=== PATIENT | female | born 1965 | race Caucasian/White ===

== ENCOUNTER 2017-03-27 15:52 | Inpatient (IN) ==
[2017-03-27] MEDS ORDERED: predniSONE 20 MG TABLET PO ONE (15:57)
--- NOTE | 2017-03-27 16:03 | Emergency Department Note ---
Disposition Clinical Impression: Acute exacerbation of chronic obstructive airways disease Disposition: Admitted As Inpatient Condition: Fair Referrals: Benjamin Thayer MD [Primary Care Provider] - Forms: ED Satisfaction Letter Time of Disposition: 16:58 SOB HPI - General Chief Complaint: ED Shortness of Breath/Dyspnea Stated Complaint: COPD Time Seen by Provider: 03/27/17 15:56 Source: patient Mode of arrival: ambulatory Limitations: no limitations Nursing Notes Reviewed: Yes Vital Signs Reviewed: Yes - History of Present Illness 51-year-old female has a history COPD comes in with increasing shortness of breath for the last 3 days. Upon squad arrival she was in the mid 80s pulse ox. She's gotten a treatment with some improvement. Chart notes that she is allergic to prednisone she says she is not allergic she just can't take high doses it causes her to get agitated she is okay with 20 mg. Pt Subjective Complaint: shortness of breath, cough Onset (ago): day(s) Severity: moderate Consistency/Duration: constant Improves with: bronchodilators Worsens with: exertion Known history of: COPD Associated symptoms: Denies: chest pain, pain with inspiration Treatment prior to arrival: oxygen, bronchodilator Cough Description: Involuntary Cough Frequency: Intermittent - Related Data Home Medications Medication Instructions Recorded Confirmed Citalopram Hydrobromide [Celexa] 40 mg PO DAILY 02/14/16 03/27/17 traZODone [TraZODone] 50 mg PO HS #0 02/14/16 03/27/17 ALPRAZolam [Xanax 1 MG Tablet] 1 mg PO QID 03/27/17 03/27/17 Albuterol Sulfate [Proair Hfa] 2 puff IH Q4H PRN 03/27/17 03/27/17 Budesonide/Formoterol 80/4.5 2 puff IH BID 03/27/17 03/27/17 [Symbicort 80/4.5] Metformin HCl [Metformin HCl ER] 500 mg PO QPM 03/27/17 03/27/17 Mirtazapine [Remeron] 15 mg PO HS 03/27/17 03/27/17 Allergies Allergy/AdvReac Type Severity Reaction Status Date / Time prednisone AdvReac See Verified 02/13/16 20:11 Comments Constitutional: Denies: fever, chills, weakness, weight change Eyes: Denies: eye pain, eye discharge, vision change ENT ED: Denies: ear pain, throat pain, dental pain, hearing loss, epistaxis, congestion, dysphagia Cardiovascular: Denies: chest pain, palpitations, dyspnea on exertion, edema, syncope Respiratory: Reports: cough, dyspnea, wheezes. Denies: hemoptysis, stridor Gastrointestinal: Denies: abdominal pain, nausea, vomiting, diarrhea, constipation, hematemesis, melena, hematochezia Genitourinary: Denies: dysuria, frequency, hematuria, discharge Musculoskeletal: Denies: back pain, neck pain, arthralgia, myalgia Integumentary: Denies: rash, abrasion, lesions Neurological: Denies: headache, weakness, numbness, paresthesias, confusion, abnormal gait, vertigo Psychiatric: Denies: anxiety, depression, suicidal thoughts, homicidal thoughts , auditory hallucinations, visual hallucinations Endocrine: Denies: fatigue Hematological/Lymphatic: Denies: easy bleeding, easy bruising Allergic/Immunologic: Denies: facial swelling, urticaria Past Medical History - Past Medical History Medical history: Reports: COPD, other (RLS) Surgical history: Reports: appendectomy, Psychiatric history: Reports: anxiety, depression - Social History Smoking Status: Former smoker Smokeless Tobacco Status: No Alcohol use: Reports: none Drug use: Reports: none Physical Exam - General Limitations: no limitations General appearance: alert, in no apparent distress - Head Head exam: atraumatic, normocephalic, normal inspection - Eye Eye exam: Present: normal appearance, PERRL, EOMI - ENT ENT exam: normal exam, normal oropharynx, mucous membranes moist - Neck Neck exam: Present: normal inspection, full ROM, trachea midline - Chest Chest inspection: Present: normal inspection, symmetric chest wall rise - Respiratory Respiratory exam: Present: wheezes, accessory muscle use, prolonged expiratory phase - Cardiovascular Cardiovascular exam: Present: regular rate, normal rhythm, normal heart sounds - Abdominal Exam Abdominal exam: Present: soft, Non-Tender. Absent: tenderness, distention, guarding, rebound, rigidity - Extremities Exam Extremities exam: Present: normal inspection, full ROM. Absent: tenderness, pedal edema - Expanded Lower Extremity Exam Neurovascular/Tendon exam: Absent: motor deficit, sensory deficit, tendon deficit Gait: observed and normal - Back Exam Back exam: Present: normal inspection, full ROM. Absent: tenderness - Neurological Exam Neurological exam: Present: alert, oriented X3 - Psychiatric Psychiatric exam: Present: normal affect, normal mood - Skin Skin exam: Present: warm, dry, intact, normal color Course - Reevaluation(s) Reevaluation #1: 51-year-old female with a history COPD comes in with increasing shortness breath for the last several days. The patient uses oxygen at night normally her pulse ox is in the mid 90s during the day but currently we take her off oxygen she drops to about 89 any exertion she gets short of breath. She is improved from arrival but continues to have wheezing look sexual required admission. Time: 16:58 - Consultations Consultation #1: Discussed with Mey Arriaga HAND GLUER AND SLICER, admit. Time: 17:08 Vital Signs Temperature 98.0 F 03/27/17 15:54 Pulse Rate 84 03/27/17 15:54 Respiratory Rate 26 03/27/17 15:54 Blood Pressure 130/111 03/27/17 15:54 O2 Sat by Pulse Oximetry 96 03/27/17 15:54 Temperature 98.0 F 03/27/17 15:54 Pulse Rate 84 03/27/17 15:54 Respiratory Rate 26 03/27/17 15:54 Blood Pressure 130/111 03/27/17 15:54 O2 Sat by Pulse Oximetry 96 03/27/17 15:54 Oxygen Delivery Oxygen Delivery Room Air Shortness of Breath/Dyspnea - Lab Data Lab results reviewed: Yes I reviewed the patient's lab results. Result diagrams: 03/27/17 16:21 03/27/17 16:21 Lab Results 03/27/17 03/27/17 03/27/17 Range/Units 16:21 16:21 16:21 WBC 5.6 (4.3-11.1) K/mcL RBC 4.78 (3.82-4.97) M/mcL Hgb 14.3 (11.5-15.4) g/dL Hct 42.4 (35.3-44.9) % MCV 88.7 (83.0-100.0) fL MCH 29.9 (28.0-33.3) pg MCHC 33.7 (31.6-35.5) g/dL RDW 12.5 (11.5-14.5) % Plt Count 210 (140-400) K/mcL MPV 10.1 (9.4-12.4) fL Immature Gran % 0.2 (0-4) % Seg Neutrophils % 54.9 % Lymphocytes % 32.9 % Monocytes % 9.3 % Eosinophils % 1.4 % Basophils % 1.3 % Neutrophils # 3.1 (1.6-8.9) K/mcL Lymphocytes # 1.8 (0.6-4.6) K/mcL Monocytes # 0.5 (0.0-1.3) K/mcL Eosinophils # 0.1 (0.0-0.6) K/mcL Basophils # 0.1 (0.0-0.2) K/mcL Immature Plt Fraction 5.4 (1.1-6.1) % Sodium 137 (136-145) mEq/L Potassium 3.6 (3.5-4.5) mEq/L Chloride 103 (98-109) mEq/L Carbon Dioxide 28 (19-29) mEq/L BUN 10 (7-20) mg/dL Creatinine 0.63 (0.57-1.11) mg/dL Est GFR ( Amer) > 60 (> 60) Est GFR (Non-Af Amer) > 60 (> 60) BUN/Creatinine Ratio 16 (6-26) Glucose 117 H (70-99) mg/dL Calculated Osmolality 284 (280-300) Lactic Acid 1.0 (0.5-2.2) mmol/L Calcium 8.9 (8.6-10.8) mg/dL Troponin I (0-0.03) ng/mL B-Natriuretic Peptide (0-100) pg/mL 03/27/17 03/27/17 Range/Units 16:21 16:21 WBC (4.3-11.1) K/mcL RBC (3.82-4.97) M/mcL Hgb (11.5-15.4) g/dL Hct (35.3-44.9) % MCV (83.0-100.0) fL MCH (28.0-33.3) pg MCHC (31.6-35.5) g/dL RDW (11.5-14.5) % Plt Count (140-400) K/mcL MPV (9.4-12.4) fL Immature Gran % (0-4) % Seg Neutrophils % % Lymphocytes % % Monocytes % % Eosinophils % % Basophils % % Neutrophils # (1.6-8.9) K/mcL Lymphocytes # (0.6-4.6) K/mcL Monocytes # (0.0-1.3) K/mcL Eosinophils # (0.0-0.6) K/mcL Basophils # (0.0-0.2) K/mcL Immature Plt Fraction (1.1-6.1) % Sodium (136-145) mEq/L Potassium (3.5-4.5) mEq/L Chloride (98-109) mEq/L Carbon Dioxide (19-29) mEq/L BUN (7-20) mg/dL Creatinine (0.57-1.11) mg/dL Est GFR ( Amer) (> 60) Est GFR (Non-Af Amer) (> 60) BUN/Creatinine Ratio (6-26) Glucose (70-99) mg/dL Calculated Osmolality (280-300) Lactic Acid (0.5-2.2) mmol/L Calcium (8.6-10.8) mg/dL Troponin I 0.00 (0-0.03) ng/mL B-Natriuretic Peptide 21 (0-100) pg/mL - Radiology Data Radiology results reviewed: Yes I reviewed the patient's radiology results. Chest X-Ray 03/27/17 15:59 IMPRESSION: No focal consolidation. D/ / Beatrice Reina MD / Beatrice Reina MD Interpreting Provider: Beatrice Reina MD - EKG Data EKG attestation: Yes I reviewed and interpreted this EKG. EKG shows normal: Reports: sinus rhythm Rate: Reports: normal Rhythm: Reports: NSR Interpretation: Reports: no acute changes
[2017-03-27 16:31] LABS: Basophils # 0.1 K/mcL (0.0-0.2); Basophils % 1.3 %; Eosinophils # 0.1 K/mcL (0.0-0.6); Eosinophils % 1.4 %; Hematocrit 42.4 % (35.3-44.9); Hemoglobin 14.3 g/dL (11.5-15.4); Immature Granulocytes % 0.2 % (0-4); Immature Platelets 5.4 % (1.1-6.1); Lymphocytes # 1.8 K/mcL (0.6-4.6); Lymphocytes % 32.9 %; Mean Corpuscular HGB Conc 33.7 g/dL (31.6-35.5); Mean Corpuscular Hemoglobin 29.9 pg (28.0-33.3); Mean Corpuscular Volume 88.7 fL (83.0-100.0); Mean Platelet Volume 10.1 fL (9.4-12.4); Monocytes # 0.5 K/mcL (0.0-1.3); Monocytes % 9.3 %; Neutrophils # 3.1 K/mcL (1.6-8.9); Platelet Count 210 K/mcL (140-400); Red Blood Count 4.78 M/mcL (3.82-4.97); Red Cell Distribution Width 12.5 % (11.5-14.5); Segmented Neutrophils % 54.9 %
[2017-03-27 16:45] LABS: BUN/Creatinine Ratio 16 (6-26); Blood Urea Nitrogen 10 mg/dL (7-20); Calcium 8.9 mg/dL (8.6-10.8); Carbon Dioxide 28 mEq/L (19-29); Chloride 103 mEq/L (98-109); Glucose 117 mg/dL (70-99); Osmolality,Calculated 284 (280-300); Potassium 3.6 mEq/L (3.5-4.5); Sodium 137 mEq/L (136-145); eGFR For African Americans > 60 (> 60); eGFR For Non-African Americans > 60 (> 60)
[2017-03-27] MEDS: Budesonide/Formoterol 80/4.5 MDI IH SCH (20:34)
[2017-03-27] MEDS ORDERED: Naloxone 0.4 MG/ML INJ IVP PRN (21:10)
[2017-03-27] MEDS: ALPRAZolam 1 MG TABLET PO SCH (21:13)
[2017-03-27] MEDS: Mirtazapine 15 MG TABLET PO SCH (21:13)
[2017-03-27] MEDS: traZODone 50 MG TABLET PO SCH (21:14)
--- NOTE | 2017-03-27 21:18 | Internal Med History&Physical ---
Date of Encounter: 03/27/17 Time of Encounter: 21:17 Assessment and Plan (1) Acute exacerbation of chronic obstructive airways disease Current visit: Yes Status: Acute Treat with duonebs, low dose prednisone, doxycycline (due to prolonged QTc); and mucinex (2) Acute and chronic respiratory failure ([id number]) Current visit: Yes Status: Acute due to acute exhibition of COPD. continue supplemental oxygen to keep oxygen saturations above 90% and treat COPD exacerbation Qualifiers: Respiratory failure complication: hypoxia Qualified Code(s): J96.21 - Acute and chronic respiratory failure with hypoxia (3) Severe protein-calorie malnutrition Current visit: Yes Status: Chronic She has BMI of 13.5. TSH was normal on 2 previous occasions. Nutrition consult (4) DVT prophylaxis Current visit: Yes Status: Acute Heparin Internal Medicine - H&P: HPI Chief complaint: Shortness of breath Admitted From: Emergency Dept Plans for Post Hospital Care: Home History of present illness: Ms. Sun is a 51 year old female With history of COPD, chronic respiratory failure on home oxygen 2LPM (uses at nights). She presents with increasing shortness of breath (exertional and rest), for the last 3 days. She reports cough with the greenish sputum. No hemoptysis. She denies fever, chills, nausea, vomiting, sweats. She reports chest pain on the sides of the chest, with cough. She was apparently hypoxic with oxygen saturation in the mid 80s, per the squad. She was evaluated in the emergency department and was treated with duonebs and low dose prednisone (High doses apparently cause agitation). She is admitted to the hospitalist service for further management. Past Med Surg Social Fam HX - Past Medical History Medical history: COPD, diabetes, other Psychiatric history: anxiety, depression - Past Surgical History Surgical History: appendectomy, - Social History Smoking Status: Former smoker Smokeless Tobacco Status: No Alcohol use: none Drug use: none - Family History Mother Living Status: Hx Family Respiratory Disorders: Yes Hx Family Endocrine Disorder: Yes Father Living Status: Hx Family Cardiac Disorders: Yes Hx Family Cancer: Yes Hx Family Endocrine Disorder: Yes (diabetes) Internal Medicine - H&P: Meds Citalopram Hydrobromide [Celexa] 40 mg PO 2100 02/14/16 [History] traZODone [TraZODone] 50 mg PO HS #0 02/14/16 [History] ALPRAZolam [Xanax 1 MG Tablet] 1 mg PO QID 03/27/17 [History] Albuterol Sulfate [Proair Hfa] 2 puff IH Q4H PRN 03/27/17 [History] Budesonide/Formoterol 80/4.5 [Symbicort 80/4.5] 2 puff IH BID 03/27/17 [History ] Metformin HCl [Metformin HCl ER] 500 mg PO QPM 03/27/17 [History] Mirtazapine [Remeron] 15 mg PO HS 03/27/17 [History] Allergies prednisone Adverse Reaction (Verified 02/13/16 20:11) See Comments "my system just can't handle it." All Systems PM: A 10-system review of systems was performed and is negative for pertinent findings except as documented above in the HPI. - Constitutional Vitals: Temp Pulse Resp BP Pulse Ox 97.5 F L 82 18 108/46 93 03/27/17 19:23 03/27/17 19:23 03/27/17 20:34 03/27/17 19:23 03/27/17 20:34 Exam: General: Not in acute distress at the time of my evaluation. She is thin built with BMI of 13.5 HEENT: Oral mucosa is moist. No conjunctival palor or scleral icterus Neck: No obvious neck swellings Lungs: Diminished air entry bilaterally Cardiac: Regular rate and rhythm. No significant murmurs Abdomen: Soft, non tender. Bowel sounds present Genitourinary: No mantilla catheter Neurological: Alert and oriented. No gross localizing deficits Psych: Not aggressive or agitated Extremities: no significant leg edema Skin: No generalized rash Internal Med - H&P Results - Labs CBC & Chem 7: 03/27/17 16:21 03/27/17 16:21 - EKG Data -: EKG Interpreted by Myself EKG shows normal: sinus rhythm Rate: normal - Impressions ITS Impressions Chest X-Ray 03/27/17 15:59 IMPRESSION: No focal consolidation. D/ / Beatrice Reina MD / Beatrice Reina MD Interpreting Provider: Beatrice Reina MD
[2017-03-27] MEDS: Ipratropium/Albuterol Neb 3 ML IH SCH ×2 (21:30→22:20)
[2017-03-27] MEDS: Doxycycline 100 MG CAPSULE PO SCH (22:01)
[2017-03-27] MEDS: Famotidine 20 MG TABLET PO SCH (22:01)
[2017-03-28] MEDS: Ipratropium/Albuterol Neb 3 ML IH SCH ×4 (04:00→22:01)
[2017-03-28] MEDS: *HR* Heparin 5,000 UNIT/ML VIAL SQ SCH ×2 (06:45→20:55)
[2017-03-28 07:09] LABS: BUN/Creatinine Ratio 15 (6-26); Blood Urea Nitrogen 10 mg/dL (7-20); Calcium 9.1 mg/dL (8.6-10.8); Carbon Dioxide 29 mEq/L (19-29); Chloride 106 mEq/L (98-109); Glucose 167 mg/dL (70-99); Magnesium 1.9 mg/dL (1.6-2.6); Osmolality,Calculated 293 (280-300); Sodium 140 mEq/L (136-145); eGFR For African Americans > 60 (> 60); eGFR For Non-African Americans > 60 (> 60)
[2017-03-28] MEDS: Doxycycline 100 MG CAPSULE PO SCH ×2 (08:25→20:55)
[2017-03-28] MEDS: Famotidine 20 MG TABLET PO SCH (08:25)
[2017-03-28] MEDS: ALPRAZolam 1 MG TABLET PO SCH ×4 (08:26→20:55)
[2017-03-28] MEDS: predniSONE 20 MG TABLET PO SCH (08:26)
--- NOTE | 2017-03-28 10:10 | Internal Med Progress Note ---
Date of Encounter: 03/28/17 Time of Encounter: 10:08 - Assessment and plan (1) Acute exacerbation of chronic obstructive airways disease Current Visit: Yes Status: Acute Assessment and plan: Admitted with exacerbation of her COPD. Still has difficulty in breathing. Coughing out yellowish green sputum. Plan: Will continue doxycycline. We will repeat the EKG to manage her QTC. We will continue low-dose steroid. We will continue bronchodilators. (2) Severe protein-calorie malnutrition Current Visit: Yes Status: Chronic Assessment and plan: Noted that patient's BMI is 13.5. It seems that patient has 4 deaths in her family in last 1 year. Patient claims that this is the reason she is not eating well. Plan: We will get esteves CT scan. Possible nutrition consult after reversible causes ruled out. (3) DVT prophylaxis Current Visit: Yes Status: Acute Assessment and plan: Heparin Medical decision making: This patient has a moderate to severe risk of worsening in spite of being on appropriate treatment due to the underlying medical issues. - Subjective Interval history: Seen and examined. Chart reviewed. Patient still complains of shortness of breath. Patient denies chest pain, dizziness, diarrhea or vomiting. - Constitutional Vitals: Temp Pulse Resp BP Pulse Ox 97.6 F 70 15 113/72 97 03/28/17 06:58 03/28/17 06:58 03/28/17 06:58 03/28/17 06:58 03/28/17 06:58 General appearance: Present: cachectic, A&O X 3, pleasant, answers questions appropriately - Head Head exam: Present: atraumatic, normocephalic - Eye Eye exam: Present: PERRL, conjuntiva pink, sclera anicteric Pupils: Present: PERRL - Neck Neck exam general surgery: Present: supple, trachea midline. Absent: lymphadenopathy - Respiratory Respiratory exam: Present: CTAB. Absent: accessory muscle use, rales, rhonchi, wheezes - Cardiovascular Cardiovascular exam: Present: RRR, +S1, +S2. Absent: diastolic murmur, gallop, rubs, systolic murmur - GI/Abdominal GI/Abdominal exam: Present: normal bowel sounds, soft, no peritoneal signs. Absent: distended, tenderness - Extremities Exam Extremities exam: Present: warm, radial pulses palpable and symetrical. Absent : calf tenderness, cyanotic, pedal edema - Neurological Exam Neurological exam: Present: CN II-XII intact, oriented X3, no focal deficits. Absent: pronater drift, facial droop, speech deficit - Skin Skin exam: Present: dry, intact Internal Medicine: Result - Labs CBC & Chem 7: 03/27/17 16:21 03/28/17 05:01 Labs: BMP 03/28/17 05:01 Sodium 140 Potassium 4.0 Chloride 106 Carbon Dioxide 29 BUN 10 Creatinine 0.67 Glucose 167 H Calcium 9.1 Cardiac Enzymes 03/28/17 Range/Units 05:01 Troponin I 0.00 (0-0.03) ng/mL Consult Discharge Plan - Plan Referrals: Crystal Winn REHABILITATION SERVICES MANAGER [Advanced Practice Nurse] - 03/30/17 8:00 am
[2017-03-28] MEDS: Budesonide/Formoterol 80/4.5 MDI IH SCH ×2 (10:37→22:01)
--- NOTE | 2017-03-28 11:28 | Electrocardiograph Report ---
[place] [id number] Test Date: 2017-03-27 Pat Name: Mildred uSn Department: 104 Room: 3B45 Gender: F Skin Care Technician: : 1965 Requested By: Lonny Cisneros Order Number: [id number] Reading MD: Nancy Escalera Measurements Intervals [place] Rate: 77 P: 97 TX: 158 QRS: 106 QRSD: 77 T: 170 QT: 391 QTc: 423 Interpretive Statements SINUS RHYTHM Right and left arm leads reversed please repeat ECG Electronically Signed On 03-28-2017 11:26:53 EDT by Nancy Escalera
[2017-03-28] MEDS: Nicotine 7 MG PATCH.TD24 TD SCH (20:15)
[2017-03-28] MEDS: Mirtazapine 15 MG TABLET PO SCH (20:56)
[2017-03-28] MEDS: traZODone 50 MG TABLET PO SCH (20:56)
[2017-03-29] MEDS: Ipratropium/Albuterol Neb 3 ML IH SCH ×4 (04:17→22:07)
[2017-03-29] MEDS: *HR* Heparin 5,000 UNIT/ML VIAL SQ SCH ×2 (06:12→18:21)
--- NOTE | 2017-03-29 09:47 | Internal Med Progress Note ---
Date of Encounter: 03/29/17 Time of Encounter: 09:45 - Assessment and plan (1) Acute exacerbation of chronic obstructive airways disease Current Visit: Yes Status: Acute Assessment and plan: Admitted with exacerbation of her COPD. Still has difficulty in breathing. Coughing out yellowish green sputum. Plan: Will continue doxycycline. We will repeat the EKG to manage her QTC. We will continue low-dose steroid. We will continue bronchodilators. 12/30/2016 Shortness of breath is getting better. Patient is able to walk couple of steps. We will continue present medication. (2) Severe protein-calorie malnutrition Current Visit: Yes Status: Chronic Assessment and plan: Noted that patient's BMI is 13.5. It seems that patient has 4 deaths in her family in last 1 year. Patient claims that this is the reason she is not eating well. Plan: We will get esteves CT scan. Possible nutrition consult after reversible causes ruled out. 12/30/[address] scan: Negative for malignancy. Case discussed with the patient's primary care doctor for possible outpatient EGD/Colonoscopy Dr Arreguin agreed for same. (3) DVT prophylaxis Current Visit: Yes Status: Acute Assessment and plan: Heparin Medical decision making: This patient has a moderate to severe risk of worsening in spite of being on appropriate treatment due to the underlying medical issues. - Subjective Interval history: Seen and examined. Chart reviewed. Patient still complains of shortness of breath. Patient denies chest pain, dizziness, diarrhea or vomiting. 03/29/2017 seen and examined. Chart reviewed. She was complaining of occasional shortness of breath. Patient denies any chest pain, dizziness diarrhea or vomiting - Constitutional Vitals: Temp Pulse Resp BP Pulse Ox 97.4 F L 73 17 110/69 98 03/29/17 07:32 03/29/17 07:32 03/29/17 07:32 03/29/17 07:32 03/29/17 07:32 General appearance: Present: cachectic, A&O X 3, pleasant, answers questions appropriately - Head Head exam: Present: atraumatic, normocephalic - Eye Eye exam: Present: PERRL, conjuntiva pink, sclera anicteric Pupils: Present: PERRL - Neck Neck exam general surgery: Present: supple, trachea midline. Absent: lymphadenopathy - Respiratory Respiratory exam: Present: CTAB. Absent: accessory muscle use, rales, rhonchi, wheezes - Cardiovascular Cardiovascular exam: Present: RRR, +S1, +S2. Absent: diastolic murmur, gallop, rubs, systolic murmur - GI/Abdominal GI/Abdominal exam: Present: normal bowel sounds, soft, no peritoneal signs. Absent: distended, tenderness - Extremities Exam Extremities exam: Present: warm, radial pulses palpable and symetrical. Absent : calf tenderness, cyanotic, pedal edema - Neurological Exam Neurological exam: Present: CN II-XII intact, oriented X3, no focal deficits. Absent: pronater drift, facial droop, speech deficit - Skin Skin exam: Present: dry, intact Internal Medicine: Result - Labs CBC & Chem 7: 03/27/17 16:21 03/28/17 05:01 - Impressions Impressions Abdomen/Pelvis CT 03/28/17 13:00 IMPRESSION: 1. No acute finding in the chest, abdomen, or pelvis to account for patient's weight loss. 2. Coronary artery disease and atherosclerosis. 3. Moderate emphysema. 4. Trace free fluid in the pelvis of unclear etiology. D/ / 03/28/2017 14:17:27 Brady Cabrales MD / giancarlo Interpreting Provider: Brady Cabrales MD Chest CT 03/28/17 13:00 IMPRESSION: 1. No acute finding in the chest, abdomen, or pelvis to account for patient's weight loss. 2. Coronary artery disease and atherosclerosis. 3. Moderate emphysema. 4. Trace free fluid in the pelvis of unclear etiology. D/ 03/28/2017 14:17:27 Brady Cabrales MD / giancarlo Interpreting Provider: Brady Cabrales MD Soft Tissue Neck CT 03/28/17 13:00 IMPRESSION: No evidence of suspicious soft tissue mass. Cachexia. Small nodules within the right lobe of the thyroid gland likely representing mild multinodular goiter. No further follow-up is required. D/ / 03/28/2017 14:29:52 Milton Ambriz MD / [facility] [place] Inter[place] Provider: Milton Ambriz MD Consult Discharge Plan - Plan Referrals: Crystal Winn CNP [Advanced Practice Nurse] - 03/30/17 8:00 am
[2017-03-29] MEDS: Nicotine 7 MG PATCH.TD24 TD SCH (09:59)
[2017-03-29] MEDS: Doxycycline 100 MG CAPSULE PO SCH ×2 (10:00→21:18)
[2017-03-29] MEDS: predniSONE 20 MG TABLET PO SCH (10:00)
[2017-03-29] MEDS: ALPRAZolam 1 MG TABLET PO SCH ×4 (10:00→21:18)
[2017-03-29] MEDS: Famotidine 20 MG TABLET PO SCH (10:00)
[2017-03-29 10:23] LABS: Basophils # 0.1 K/mcL (0.0-0.2); Basophils % 1.3 %; Eosinophils % 0.8 %; Hematocrit 39.4 % (35.3-44.9); Hemoglobin 12.9 g/dL (11.5-15.4); Immature Granulocytes % 0.2 % (0-4); Lymphocytes # 1.9 K/mcL (0.6-4.6); Lymphocytes % 35.3 %; Mean Corpuscular HGB Conc 32.7 g/dL (31.6-35.5); Mean Corpuscular Hemoglobin 29.8 pg (28.0-33.3); Mean Platelet Volume 10.4 fL (9.4-12.4); Monocytes # 0.5 K/mcL (0.0-1.3); Monocytes % 9.2 %; Neutrophils # 2.8 K/mcL (1.6-8.9); Platelet Count 169 K/mcL (140-400); Red Blood Count 4.33 M/mcL (3.82-4.97); Red Cell Distribution Width 12.7 % (11.5-14.5); Segmented Neutrophils % 53.2 %
[2017-03-29 10:31] LABS: Alanine Aminotransferase 8 Units/L (0-55); Albumin 3.3 g/dL (3.5-5.0); Albumin/Globulin Ratio 1.2 (1.1-2.2); Alkaline Phosphatase 46 Units/L (38-126); Aspartate Amino Transferase 10 Units/L (5-34); BUN/Creatinine Ratio 22 (6-26); Bilirubin,Total 0.3 mg/dL (0.2-1.2); Blood Urea Nitrogen 14 mg/dL (7-20); Calcium 8.6 mg/dL (8.6-10.8); Carbon Dioxide 30 mEq/L (19-29); Chloride 104 mEq/L (98-109); Globulin 2.7 g/dL (2.4-3.5); Glucose 74 mg/dL (70-99); Osmolality,Calculated 291 (280-300); Potassium 3.7 mEq/L (3.5-4.5); Sodium 141 mEq/L (136-145); eGFR For African Americans > 60 (> 60); eGFR For Non-African Americans > 60 (> 60)
[2017-03-29] MEDS: Budesonide/Formoterol 80/4.5 MDI IH SCH ×2 (10:59→22:07)
[2017-03-29] MEDS: traZODone 50 MG TABLET PO SCH (21:18)
[2017-03-29] MEDS: Mirtazapine 15 MG TABLET PO SCH (21:18)
[2017-03-30] MEDS: Ipratropium/Albuterol Neb 3 ML IH SCH ×4 (04:02→22:44)
[2017-03-30] MEDS: *HR* Heparin 5,000 UNIT/ML VIAL SQ SCH ×2 (05:54→17:49)
[2017-03-30] MEDS: Famotidine 20 MG TABLET PO SCH (08:47)
[2017-03-30] MEDS: predniSONE 20 MG TABLET PO SCH (08:47)
[2017-03-30] MEDS: Nicotine 7 MG PATCH.TD24 TD SCH (08:47)
[2017-03-30] MEDS: ALPRAZolam 1 MG TABLET PO SCH ×4 (08:47→21:20)
[2017-03-30] MEDS: Doxycycline 100 MG CAPSULE PO SCH ×2 (08:47→21:20)
[2017-03-30] MEDS: Budesonide/Formoterol 80/4.5 MDI IH SCH ×2 (10:53→22:44)
--- NOTE | 2017-03-30 14:57 | Internal Med Progress Note ---
Date of Encounter: 03/30/17 Time of Encounter: 14:56 - Assessment and plan (1) Acute exacerbation of chronic obstructive airways disease Current Visit: Yes Status: Acute Assessment and plan: Admitted with exacerbation of her COPD. Still has difficulty in breathing. Coughing out yellowish green sputum. Plan: Will continue doxycycline. We will repeat the EKG to manage her QTC. We will continue low-dose steroid. We will continue bronchodilators. 03/29/2017 Shortness of breath is getting better. Patient is able to walk couple of steps. We will continue present medication. 03/30/2017 Shortness of breath is getting better. Patient is able to walk a few steps. Plan: Will continue antibiotics. We will continue bronchodilators. We will continue steroids. (2) Severe protein-calorie malnutrition Current Visit: Yes Status: Chronic Assessment and plan: Noted that patient's BMI is 13.5. It seems that patient has 4 deaths in her family in last 1 year. Patient claims that this is the reason she is not eating well. Plan: We will get esteves CT scan. Possible nutrition consult after reversible causes ruled out. 12/30/[address] scan: Negative for malignancy. Case discussed with the patient's primary care doctor for possible outpatient EGD/Colonoscopy Dr Arreguin agreed for same. (3) DVT prophylaxis Current Visit: Yes Status: Acute Assessment and plan: Heparin Medical decision making: This patient has a moderate to severe risk of worsening in spite of being on appropriate treatment due to the underlying medical issues. - Subjective Interval history: Seen and examined. Chart reviewed. Patient still complains of shortness of breath. Patient denies chest pain, dizziness, diarrhea or vomiting. 03/29/2017 seen and examined. Chart reviewed. She was complaining of occasional shortness of breath. Patient denies any chest pain, dizziness diarrhea or vomiting 03/30/2017 Seen and examined. Chart reviewed. Patient is still having shortness of breath. Patient feels much better as compared to yesterday. - Constitutional Vitals: Temp Pulse Resp BP Pulse Ox 99.0 F 100 16 116/72 94 03/30/17 11:35 03/30/17 11:35 03/30/17 11:35 03/30/17 11:35 03/30/17 11:35 General appearance: Present: cachectic, A&O X 3, pleasant, answers questions appropriately - Head Head exam: Present: atraumatic, normocephalic - Eye Eye exam: Present: PERRL, conjuntiva pink, sclera anicteric Pupils: Present: PERRL - Neck Neck exam general surgery: Present: supple, trachea midline. Absent: lymphadenopathy - Respiratory Respiratory exam: Present: CTAB. Absent: accessory muscle use, rales, rhonchi, wheezes - Cardiovascular Cardiovascular exam: Present: RRR, +S1, +S2. Absent: diastolic murmur, gallop, rubs, systolic murmur - GI/Abdominal GI/Abdominal exam: Present: normal bowel sounds, soft, no peritoneal signs. Absent: distended, tenderness - Extremities Exam Extremities exam: Present: warm, radial pulses palpable and symetrical. Absent : calf tenderness, cyanotic, pedal edema - Neurological Exam Neurological exam: Present: CN II-XII intact, oriented X3, no focal deficits. Absent: pronater drift, facial droop, speech deficit - Skin Skin exam: Present: dry, intact Internal Medicine: Result - Labs CBC & Chem 7: 03/29/17 10:04 03/29/17 10:04 - Impressions Impressions Abdomen/Pelvis CT 03/28/17 13:00 IMPRESSION: 1. No acute finding in the chest, abdomen, or pelvis to account for patient's weight loss. 2. Coronary artery disease and atherosclerosis. 3. Moderate emphysema. 4. Trace free fluid in the pelvis of unclear etiology. D/ / 03/28/2017 14:17:27 Brady Cabrales MD / giancarlo Interpreting Provider: Brady Cabrales MD Chest CT 03/28/17 13:00 IMPRESSION: 1. No acute finding in the chest, abdomen, or pelvis to account for patient's weight loss. 2. Coronary artery disease and atherosclerosis. 3. Moderate emphysema. 4. Trace free fluid in the pelvis of unclear etiology. D/ / 03/28/2017 14:17:27 Brady Cabrales MD / giancarlo Interpreting Provider: Brady Cabrales MD Consult Discharge Plan - Plan Referrals: Crystal Winn CNP [Advanced Practice Nurse] - 03/30/17 8:00 am
[2017-03-30] MEDS: Mirtazapine 15 MG TABLET PO SCH (21:19)
[2017-03-30] MEDS: traZODone 50 MG TABLET PO SCH (21:20)
[2017-03-31 04:02] LABS: Basophils # 0.1 K/mcL (0.0-0.2); Basophils % 0.8 %; Hematocrit 40.8 % (35.3-44.9); Immature Granulocytes % 0.3 % (0-4); Lymphocytes # 1.4 K/mcL (0.6-4.6); Lymphocytes % 22.1 %; Mean Corpuscular HGB Conc 31.9 g/dL (31.6-35.5); Mean Corpuscular Volume 90.9 fL (83.0-100.0); Mean Platelet Volume 10.5 fL (9.4-12.4); Monocytes # 0.5 K/mcL (0.0-1.3); Monocytes % 8.7 %; Neutrophils # 4.2 K/mcL (1.6-8.9); Platelet Count 185 K/mcL (140-400); Red Blood Count 4.49 M/mcL (3.82-4.97); Red Cell Distribution Width 12.6 % (11.5-14.5); Segmented Neutrophils % 68.1 %
[2017-03-31 04:16] LABS: Alanine Aminotransferase 8 Units/L (0-55); Albumin 3.2 g/dL (3.5-5.0); Albumin/Globulin Ratio 1.1 (1.1-2.2); Alkaline Phosphatase 45 Units/L (38-126); Aspartate Amino Transferase 9 Units/L (5-34); BUN/Creatinine Ratio 25 (6-26); Bilirubin,Total 0.4 mg/dL (0.2-1.2); Blood Urea Nitrogen 18 mg/dL (7-20); Calcium 9.3 mg/dL (8.6-10.8); Carbon Dioxide 34 mEq/L (19-29); Chloride 102 mEq/L (98-109); Globulin 2.8 g/dL (2.4-3.5); Glucose 169 mg/dL (70-99); Osmolality,Calculated 298 (280-300); Potassium 3.8 mEq/L (3.5-4.5); Sodium 141 mEq/L (136-145); eGFR For African Americans > 60 (> 60); eGFR For Non-African Americans > 60 (> 60)
[2017-03-31] MEDS: Ipratropium/Albuterol Neb 3 ML IH SCH ×2 (04:57→10:05)
[2017-03-31] MEDS: *HR* Heparin 5,000 UNIT/ML VIAL SQ SCH (05:42)
[2017-03-31 07:26] VITALS: BP 112/69
--- NOTE | 2017-03-31 07:42 | Discharge Summary ---
Date of Encounter: 03/31/17 Time of Encounter: 07:39 - Discharge Diagnosis (1) Acute exacerbation of chronic obstructive airways disease Priority: Primary Status: Acute (2) Severe protein-calorie malnutrition Priority: Secondary Status: Chronic (3) DVT prophylaxis Priority: Secondary Status: Acute - Discharge Medications Prescriptions: Doxycycline 100 mg PO BID #6 capsule predniSONE [PredniSONE] 20 mg PO DAILY #3 tablet Home Medications: Citalopram Hydrobromide [Celexa] 40 mg PO 2100 02/14/16 [History] traZODone [TraZODone] 50 mg PO HS #0 02/14/16 [History] ALPRAZolam [Xanax 1 MG Tablet] 1 mg PO QID 03/27/17 [History] Albuterol Sulfate [Proair Hfa] 2 puff IH Q4H PRN 03/27/17 [History] Budesonide/Formoterol 80/4.5 [Symbicort 80/4.5] 2 puff IH BID 03/27/17 [History ] Metformin HCl [Metformin HCl ER] 500 mg PO QPM 03/27/17 [History] Mirtazapine [Remeron] 15 mg PO HS 03/27/17 [History] Doxycycline 100 mg PO BID #6 capsule 03/31/17 [Rx] predniSONE [PredniSONE] 20 mg PO DAILY #3 tablet 03/31/17 [Rx] Allergies/Adverse Reactions: Allergies prednisone Adverse Reaction (Verified 02/13/16 20:11) See Comments "my system just can't handle it." Procedures/tests Complete & Pending: Procedures Performed prior 72 hours Category Date Time Status CT abd pelvis w iv and oral [CT] Routine Cat Scan 03/28/17 13:[address] chest w con [CT] Routine Cat Scan 03/28/17 13:[address] soft tissue neck w con [CT] Routine Cat Scan 03/28/17 13:00 Completed Date of admission: 03/27/17 21:10 Primary care physician: Benjamin Thayer MD Consults: 03/27/17 21:18 Consult to Nutrition [CONS] Routine Comment: Low BMI Consulting Provider: NUTRITION Reason for Dietary Consult: Other Discharging clinician: Tim Celestin - Patient Status Disposition: Home, Self-Care Condition: Fair Functional capacity at discharge: uses cane/walker Overall status at discharge: patient is progressing back to baseline - Discharge Instructions Follow Up With: Benjamin Thayer MD [Primary Care Provider] - - Diet and Activity Activity: increase activity as tolerated Diet: diabetic diet Interval History: Ms. Sun is a 51 year old female With history of COPD, chronic respiratory failure on home oxygen 2LPM (uses at nights). She presents with increasing shortness of breath (exertional and rest), for the last 3 days. She reports cough with the greenish sputum. No hemoptysis. She denies fever, chills, nausea, vomiting, sweats. She reports chest pain on the sides of the chest, with cough. She was apparently hypoxic with oxygen saturation in the mid 80s, per the squad. She was evaluated in the emergency department and was treated with duonebs and low dose prednisone (High doses apparently cause agitation). She is admitted to the hospitalist service for further management. Hospital course: Patient was hospitalized. She was started on antibiotics. She was started on oral prednisone. Even though patient has listed her prednisone as her allergy in her records, patient tolerated prednisone very well. Patient is a severe protein calorie malnutrition. She has not scanned so far to rule out any malignancy. Patient underwent CT scan of the soft tissue neck, chest, abdomen and pelvis. The CT scan did not show any abnormality suggestive of neoplastic lesions. Patient responded to steroids, antibiotics and bronchodilator. Plan: Patient is keen to go home today. Patient will go home with 3 days of doxycycline and steroids for 3 days. patient will follow up with her primary care provider. I have spoken to patient's primary care provider Dr. Arreguin and updated him about his development. Patient needs outpatient EGD and colonoscopy to complete the workup and her primary care provider is going to arrange for the same. All questions answered. At the time of discharge patient does not have any questions, concerns, updated or recommendations. - Time Spent with Patient Total time spent providing and/or coordinating discharge services: - Constitutional Vitals: Temp Pulse Resp BP Pulse Ox 98.0 F 90 16 112/69 94 03/31/17 07:25 03/31/17 07:25 03/31/17 07:25 03/31/17 07:25 03/31/17 07:25 General appearance: Present: cachectic, A&O X 3, pleasant, answers questions appropriately - Head Head exam: Present: atraumatic, normocephalic - Eye Eye exam: Present: PERRL, conjuntiva pink, sclera anicteric Pupils: Present: PERRL - Neck Neck exam general surgery: Present: supple, trachea midline. Absent: lymphadenopathy - Respiratory Respiratory exam: Present: CTAB. Absent: accessory muscle use, rales, rhonchi, wheezes - Cardiovascular Cardiovascular exam: Present: RRR, +S1, +S2. Absent: diastolic murmur, gallop, rubs, systolic murmur - GI/Abdominal GI/Abdominal exam: Present: normal bowel sounds, soft, no peritoneal signs. Absent: distended, tenderness - Extremities Exam Extremities exam: Present: warm, radial pulses palpable and symetrical. Absent : calf tenderness, cyanotic, pedal edema - Neurological Exam Neurological exam: Present: CN II-XII intact, oriented X3, no focal deficits. Absent: pronater drift, facial droop, speech deficit - Skin Skin exam: Present: dry, intact
[2017-03-31] MEDS: Nicotine 7 MG PATCH.TD24 TD SCH (08:36)
[2017-03-31] MEDS: predniSONE 20 MG TABLET PO SCH (08:37)
[2017-03-31] MEDS: Famotidine 20 MG TABLET PO SCH (08:37)
[2017-03-31] MEDS: Doxycycline 100 MG CAPSULE PO SCH (08:37)
[2017-03-31] MEDS: ALPRAZolam 1 MG TABLET PO SCH (08:37)
[2017-03-31] MEDS: Budesonide/Formoterol 80/4.5 MDI IH SCH (10:05)
== END 2017-03-31 10:45 | disposition home or self-care (01) | DRG 140 ==
LOC: EMEROO 15:52 → 3BNU 15:52
PROVIDERS: ADMIT Registered Nurse; ATTEND Registered Nurse

== ENCOUNTER 2017-07-02 22:15 | Inpatient (IN) ==
[2017-07-02] MEDS ORDERED: Ipratropium/Albuterol Neb 3 ML IH ONE (22:25)
[2017-07-02] MEDS ORDERED: methylPREDNISolone 125 MG/2 ML VIAL IVP ONE (22:25)
--- NOTE | 2017-07-02 22:39 | Emergency Department Note ---
Disposition Clinical Impression: COPD exacerbation, Hypoxia Disposition: Admitted As Inpatient Condition: Good SOB HPI - General Chief Complaint: ED Shortness of Breath/Dyspnea Stated Complaint: ashley Time Seen by Provider: 07/02/17 22:22 Source: patient, EMS Mode of arrival: EMS Limitations: no limitations Nursing Notes Reviewed: Yes Vital Signs Reviewed: Yes - History of Present Illness 51-year-old female history of hypertension, COPD on home oxygen who presents to the ER due to shortness of breath via EMS. Patient states she has not felt well for the last few days. She was at her sister's house today whenever she abruptly felt short of breath. EMS was called and the patient was found to be hypoxic at 89% upon arrival. Patient improved with nasal cannula supplementation. She denies chest pain, fevers, cough, nausea, vomiting. She denies a prior history of CAD, DVT or PE. She does not wear oxygen at home. No other complaints. 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[employer] Context: recent illness Severity: severe Consistency/Duration: constant Improves with: oxygen Worsens with: nothing Known history of: COPD Associated symptoms: Denies: chest pain, fever, cough, abdominal pain Treatment prior to arrival: oxygen Cough present: No Sputum production: No Sputum Amount: None - Related Data Home oxygen amount: none Home Medications Medication Instructions Recorded Confirmed Citalopram Hydrobromide [Celexa] 40 mg PO 2100 02/14/16 07/03/17 traZODone [TraZODone] 50 mg PO HS #0 02/14/16 07/03/17 Albuterol Sulfate [Proair Hfa] 2 puff IH Q4H PRN 03/27/17 07/03/17 Budesonide/Formoterol 80/4.5 2 puff IH BID 03/27/17 07/03/17 [Symbicort 80/4.5] Metformin HCl [Metformin HCl ER] 500 mg PO QPM 03/27/17 07/03/17 Mirtazapine [Remeron] 30 mg PO HS 03/27/17 07/03/17 Allergies Allergy/AdvReac Type Severity Reaction Status Date / Time No Known Allergies Allergy Verified 07/02/17 22:32 All systems ED: reviewed and negative except as stated. Constitutional: Denies: fever Cardiovascular: Denies: chest pain Respiratory: Reports: dyspnea. Denies: cough, wheezes Gastrointestinal: Denies: abdominal pain, nausea, vomiting, diarrhea Past Medical History - Past Medical History Attestation: Yes The following information was validated with the patient. Source: patient Medical history: Reports: COPD, diabetes, other Surgical history: Reports: appendectomy, Psychiatric history: Reports: anxiety, depression - Social History Smoking Status: Former smoker Smokeless Tobacco Status: No Alcohol use: Reports: none Drug use: Reports: none Physical Exam - General Limitations: no limitations General appearance: alert, anxious - Head Head exam: atraumatic, normocephalic, normal inspection - Eye Eye exam: Present: normal appearance, EOMI - ENT ENT exam: normal exam - Neck Neck exam: Present: normal inspection, full ROM - Chest Chest inspection: Present: normal inspection, symmetric chest wall rise - Respiratory Respiratory exam: Present: wheezes (Patient has diminished breath sounds bilaterally with faint end expiratory wheezing.), accessory muscle use, prolonged expiratory phase - Cardiovascular Cardiovascular exam: Present: normal rhythm, tachycardia, normal heart sounds - Abdominal Exam Abdominal exam: Present: soft, Non-Tender. Absent: tenderness - Extremities Exam Extremities exam: Present: normal inspection, full ROM - Expanded Upper Extremity Exam Shoulder exam: Present: normal inspection, full ROM Arm exam: Present: normal inspection, full ROM Elbow exam: Present: normal inspection, full ROM Forearm/Wrist exam: Present: normal inspection, full ROM Hand exam: Present: normal inspection, full ROM - Expanded Lower Extremity Exam Hip/Pelvis exam: Present: normal inspection, full ROM Upper leg exam: Present: normal inspection, full ROM Knee exam: Present: normal inspection, full ROM Lower leg exam: Present: normal inspection, full ROM Ankle exam: Present: normal inspection, full ROM Foot/toe exam: Present: normal inspection, full ROM Neurovascular/Tendon exam: Absent: motor deficit, sensory deficit - Neurological Exam Neurological exam: Present: alert, other (GCS 15. Nonfocal neurologic exam. Moves all extremities equally.) - Psychiatric Psychiatric exam: Present: normal affect, normal mood - Skin Skin exam: Present: warm, dry, intact, normal color Course Course Narrative: Patient seen and examined the time of arrival. I did check an ultrasound of her left chest for pneumothorax which was negative. We will get an EKG, labs including troponin and BNP as well as a CT angiogram of her chest for evaluation of pulmonary embolism giving her abrupt dyspnea and hypoxia. - Reevaluation(s) Reevaluation #1: Discussed results of imaging and lab work with the patient. Vital Signs Temperature 97.6 F 07/02/17 22:17 Pulse Rate 106 07/02/17 22:17 Respiratory Rate 24 07/02/17 22:17 Blood Pressure 130/86 07/02/17 22:17 O2 Sat by Pulse Oximetry 98 07/02/17 22:17 Temperature 97.7 F 07/04/17 16:49 Pulse Rate 98 07/04/17 16:49 Respiratory Rate 20 07/04/17 16:49 Blood Pressure 109/70 07/04/17 16:49 O2 Sat by Pulse Oximetry 95 07/04/17 16:49 Oxygen Delivery Oxygen Delivery Room Air Shortness of Breath/Dyspnea - MDM Narrative Medical decision making narrative: 51-year-old female presents to the ER due to shortness of breath and hypoxia. History of COPD not currently on home oxygen. EKG here is sinus tach without ischemic features. CTA of the chest is negative for PE or pneumonia. Troponin is negative on first assessment. Given duo nebs as well as IV steroids here. Admitted to the hospitalist service for COPD exacerbation and hypoxia. - Lab Data Lab results reviewed: Yes I reviewed the patient's lab results. Result diagrams: 07/03/17 05:11 07/03/17 05:11 Lab Results 07/02/17 07/02/17 07/02/17 Range/Units 22:36 22:36 22:36 WBC 10.6 (4.3-11.1) K/mcL RBC 5.08 H (3.82-4.97) M/mcL Hgb 15.2 (11.5-15.4) g/dL Hct 46.0 H (35.3-44.9) % MCV 90.6 (83.0-100.0) fL MCH 29.9 (28.0-33.3) pg MCHC 33.0 (31.6-35.5) g/dL RDW 13.0 (11.5-14.5) % Plt Count 255 (140-400) K/mcL MPV 9.8 (9.4-12.4) fL Immature Gran % 0.4 (0-4) % Seg Neutrophils % 63.6 % Lymphocytes % 25.2 % Monocytes % 8.9 % Eosinophils % 1.1 % Basophils % 0.8 % Neutrophils # 6.8 (1.6-8.9) K/mcL Lymphocytes # 2.7 (0.6-4.6) K/mcL Monocytes # 0.9 (0.0-1.3) K/mcL Eosinophils # 0.1 (0.0-0.6) K/mcL Basophils # 0.1 (0.0-0.2) K/mcL Sodium 140 (136-145) mEq/L Potassium 3.9 (3.5-4.5) mEq/L Chloride 103 (98-109) mEq/L Carbon Dioxide 27 (19-29) mEq/L BUN 11 (7-20) mg/dL Creatinine 0.68 (0.57-1.11) mg/dL Est GFR ( Amer) > 60 (> 60) Est GFR (Non-Af Amer) > 60 (> 60) BUN/Creatinine Ratio 16 (6-26) Glucose 118 H (70-99) mg/dL POC Glucose (58-89) Calculated Osmolality 290 (280-300) Calcium 9.8 (8.6-10.8) mg/dL Magnesium (1.6-2.6) mg/dL Troponin I 0.00 (0-0.03) ng/mL B-Natriuretic Peptide (0-100) pg/mL 07/02/17 07/03/17 07/03/17 Range/Units 22:36 05:11 05:11 WBC 11.8 H (4.3-11.1) K/mcL RBC 4.53 (3.82-4.97) M/mcL Hgb 13.5 D (11.5-15.4) g/dL Hct 41.7 (35.3-44.9) % MCV 92.1 (83.0-100.0) fL MCH 29.8 (28.0-33.3) pg MCHC 32.4 (31.6-35.5) g/dL RDW 13.1 (11.5-14.5) % Plt Count 220 (140-400) K/mcL MPV 10.2 (9.4-12.4) fL Immature Gran % 0.7 (0-4) % Seg Neutrophils % 93.8 % Lymphocytes % 4.8 % Monocytes % 0.3 % Eosinophils % 0.0 % Basophils % 0.4 % Neutrophils # 11.0 H (1.6-8.9) K/mcL Lymphocytes # 0.6 (0.6-4.6) K/mcL Monocytes # 0.0 (0.0-1.3) K/mcL Eosinophils # 0.0 (0.0-0.6) K/mcL Basophils # 0.1 (0.0-0.2) K/mcL Sodium 137 (136-145) mEq/L Potassium 4.2 (3.5-4.5) mEq/L Chloride 105 (98-109) mEq/L Carbon Dioxide 26 (19-29) mEq/L BUN 11 (7-20) mg/dL Creatinine 0.57 (0.57-1.11) mg/dL Est GFR ( Amer) > 60 (> 60) Est GFR (Non-Af Amer) > 60 (> 60) BUN/Creatinine Ratio 19 (6-26) Glucose 205 H (70-99) mg/dL POC Glucose (58-89) Calculated Osmolality 289 (280-300) Calcium 9.0 (8.6-10.8) mg/dL Magnesium 2.5 (1.6-2.6) mg/dL Troponin I (0-0.03) ng/mL B-Natriuretic Peptide 32 (0-100) pg/mL 07/03/17 07/03/17 Range/Units 06:42 11:26 WBC (4.3-11.1) K/mcL RBC (3.82-4.97) M/mcL Hgb (11.5-15.4) g/dL Hct (35.3-44.9) % MCV (83.0-100.0) fL MCH (28.0-33.3) pg MCHC (31.6-35.5) g/dL RDW (11.5-14.5) % Plt Count (140-400) K/mcL MPV (9.4-12.4) fL Immature Gran % (0-4) % Seg Neutrophils % % Lymphocytes % % Monocytes % % Eosinophils % % Basophils % % Neutrophils # (1.6-8.9) K/mcL Lymphocytes # (0.6-4.6) K/mcL Monocytes # (0.0-1.3) K/mcL Eosinophils # (0.0-0.6) K/mcL Basophils # (0.0-0.2) K/mcL Sodium (136-145) mEq/L Potassium (3.5-4.5) mEq/L Chloride (98-109) mEq/L Carbon Dioxide (19-29) mEq/L BUN (7-20) mg/dL Creatinine (0.57-1.11) mg/dL Est GFR ( Amer) (> 60) Est GFR (Non-Af Amer) (> 60) BUN/Creatinine Ratio (6-26) Glucose (70-99) mg/dL POC Glucose 163 H 178 H (58-89) Calculated Osmolality (280-300) Calcium (8.6-10.8) mg/dL Magnesium (1.6-2.6) mg/dL Troponin I (0-0.03) ng/mL B-Natriuretic Peptide (0-100) pg/mL - Radiology Data Radiology results reviewed: Yes I reviewed the patient's radiology results. Chest CTA 07/02/17 22:25 IMPRESSION: 1. No evidence of pulmonary embolism or acute pulmonary abnormality. 2. Moderate emphysema. D/ / Garrett Raygoza MD / Garrett Raygoza MD Interpreting Provider: Garrett Raygoza MD - EKG Data EKG attestation: Yes I reviewed and interpreted this EKG. EKG results narrative: EKG demonstrates sinus tachycardia with a rate of 106. Normal axis. Normal intervals. No ST elevations or depressions. No acute ischemic findings. No significant changes from previous EKG dated 03/27/17. S.B.A.R. - S.B.A.R. Situation: Demographics, MOA Background: Presenting Complaint, Relevant PMH, Meds, & Allergies Assessment: Vital Signs, Course and respsone to treatment, Exam Concerns, Patient/Family Expectation, Pertinant Lab Results, Outstanding Labs Recommendation: Barrier(s) to disposition, Recommendation based on pending studies, treatments, or consults S.B.A.R. Report Given to: Dr. Jasvir Pacheco Repor Time: 00:52 Attestation Statement - Attestation Attestation: I examined this patient and my medical decision-making was reviewed with the Resident Physician, Dr. Alexis. I agree with the documented findings, disposition and treatment plan as described except to the extent set forth below. Pt is a 51 yo wf, who is brought by EMS for acute onset SOB, hx COPD. Pt hypoxic on arrival with incr work of breathing. I agree with pt's PE findigns as documented. EKG without ischemic changes. Pt with only mild improvement after IV steroids an aerosols. CTA neg for PE. Will admit for further eval of AECOPD.
[2017-07-02 22:45] LABS: Basophils # 0.1 K/mcL (0.0-0.2); Basophils % 0.8 %; Eosinophils # 0.1 K/mcL (0.0-0.6); Eosinophils % 1.1 %; Hemoglobin 15.2 g/dL (11.5-15.4); Immature Granulocytes % 0.4 % (0-4); Lymphocytes # 2.7 K/mcL (0.6-4.6); Lymphocytes % 25.2 %; Mean Corpuscular Hemoglobin 29.9 pg (28.0-33.3); Mean Corpuscular Volume 90.6 fL (83.0-100.0); Mean Platelet Volume 9.8 fL (9.4-12.4); Monocytes # 0.9 K/mcL (0.0-1.3); Monocytes % 8.9 %; Neutrophils # 6.8 K/mcL (1.6-8.9); Platelet Count 255 K/mcL (140-400); Red Blood Count 5.08 M/mcL (3.82-4.97); Segmented Neutrophils % 63.6 %
[2017-07-02] MEDS ORDERED: 0.9 % Sodium Chloride 1,000 ML IVC ONE (22:50)
[2017-07-02 22:59] LABS: BUN/Creatinine Ratio 16 (6-26); Blood Urea Nitrogen 11 mg/dL (7-20); Calcium 9.8 mg/dL (8.6-10.8); Carbon Dioxide 27 mEq/L (19-29); Chloride 103 mEq/L (98-109); Glucose 118 mg/dL (70-99); Osmolality,Calculated 290 (280-300); Potassium 3.9 mEq/L (3.5-4.5); Sodium 140 mEq/L (136-145); eGFR For African Americans > 60 (> 60); eGFR For Non-African Americans > 60 (> 60)
[2017-07-03] MEDS ORDERED: Acetaminophen 325 MG TABLET PO PRN (02:01)
[2017-07-03] MEDS ORDERED: Naloxone 0.4 MG/ML INJ IVP PRN (02:01)
[2017-07-03] MEDS ORDERED: Ipratropium/Albuterol Neb 3 ML IH PRN (02:04)
[2017-07-03] MEDS ORDERED: Magnesium Sulfate 2 GM in D5% in Water 100 ML IVPB ONE (02:06)
[2017-07-03] MEDS ORDERED: *HR* Dextrose 50 % in Water (Syg) 50 ML SYRINGE IVP PRN (02:09)
[2017-07-03] MEDS ORDERED: Dextrose Gel 15 GM PO PRN ×2 (02:09)
[2017-07-03] MEDS ORDERED: D5% in Water 1,000 ML IVC PRN (02:09)
[2017-07-03] MEDS: 0.9 % Sodium Chloride 1,000 ML IVC SCH ×2 (02:52→23:30)
[2017-07-03] MEDS: Azithromycin 500 MG in D5% in Water 250 ML IVPB SCH (02:53)
--- NOTE | 2017-07-03 03:29 | Internal Med History&Physical ---
Date of Encounter: 07/02/17 Time of Encounter: 23:00 Assessment and Plan (1) Diabetes Current visit: Yes Status: Acute Patient uses metformin at home. Will place patient on sliding scale insulin coverage. Qualifiers: Diabetes mellitus type: type 2 Diabetes mellitus complication status: without complication Diabetes mellitus terminal manager insulin use: without intermediate use Qualified Code(s): E11.9 - Type 2 diabetes mellitus without complications (2) Acute exacerbation of chronic obstructive airways disease Current visit: No Status: Acute We will continue antibiotic, steroid, and bronchodilator treatment. - We will continue oxygen supportive treatment. (3) Acute and chronic respiratory failure ([id number]) Current visit: No Status: Acute Improved after treatment. Continue low rate oxygen supportive treatment. Qualifiers: Respiratory failure complication: hypoxia Qualified Code(s): J96.21 - Acute and chronic respiratory failure with hypoxia (4) DVT prophylaxis Current visit: No Status: Acute Heparin subcutaneously Internal Medicine - H&P: HPI Chief complaint: Shortness of breath Admitted From: Home Plans for Post Hospital Care: Home History of present illness: Ms. Sun is a 51 year old female with history of COPD and diabetes presented to emergency room for shortness of breath. Patient said she has worsening shortness of breath for one day. Denies chest pain. Was reported desaturation. Patient has runny nose and sore throat for one day. Denies cough. Denies fever. Has a mild nausea but no vomiting. In emergency room, patient was suspect PE and had a CTA. PE has been ruled out by CTA. Patient has wheezing, she was treated with nebulizer and Solu-Medrol. After treatment her condition has improved. She was admitted for COPD exacerbation. Past Med Surg Social Fam HX - Past Medical History Medical history: COPD, diabetes, other Psychiatric history: anxiety, depression - Past Surgical History Surgical History: appendectomy, - Social History Smoking Status: Former smoker Smokeless Tobacco Status: No Alcohol use: none Drug use: none - Family History Mother Living Status: Hx Family Respiratory Disorders: Yes Hx Family Endocrine Disorder: Yes Father Living Status: Hx Family Cardiac Disorders: Yes Hx Family Cancer: Yes Hx Family Endocrine Disorder: Yes (diabetes) Internal Medicine - H&P: Meds Citalopram Hydrobromide [Celexa] 40 mg PO 2100 02/14/16 [History] traZODone [TraZODone] 50 mg PO HS #0 02/14/16 [History] ALPRAZolam [Xanax 1 MG Tablet] 1 mg PO QID PRN 03/27/17 [History] Albuterol Sulfate [Proair Hfa] 2 puff IH Q4H PRN 03/27/17 [History] Budesonide/Formoterol 80/4.5 [Symbicort 80/4.5] 2 puff IH BID 03/27/17 [History ] Metformin HCl [Metformin HCl ER] 500 mg PO QPM 03/27/17 [History] Mirtazapine [Remeron] 30 mg PO HS 03/27/17 [History] 3 Allergy/AdvReac Type Severity Reaction Status Date / Time No Known Allergies Allergy Verified 07/02/17 22:32 All Systems PM: A 10-system review of systems was performed and is negative for pertinent findings except as documented above in the HPI. - Constitutional Vitals: Temp Pulse Resp BP Pulse Ox 98.2 F 94 18 122/76 96 07/03/17 01:54 07/03/17 01:54 07/03/17 01:54 07/03/17 01:54 07/03/17 01:54 General appearance: Present: cachectic, A&O X 3, no acute distress, answers questions appropriately - Head Head exam: Present: atraumatic, normocephalic - Eye Eye exam: Present: PERRL, conjuntiva pink, sclera anicteric Pupils: Present: PERRL - Neck Neck exam general surgery: Present: supple, trachea midline. Absent: lymphadenopathy - Respiratory Respiratory exam: Present: decreased breath sounds (Bilaterally), CTAB, wheezes (Scattered wheezes bilaterally). Absent: accessory muscle use, rales, rhonchi - Cardiovascular Cardiovascular exam: Present: RRR, +S1, +S2. Absent: diastolic murmur, gallop, rubs, systolic murmur - GI/Abdominal GI/Abdominal exam: Present: normal bowel sounds, soft, no peritoneal signs. Absent: distended, tenderness - Extremities Exam Extremities exam: Present: warm, radial pulses palpable and symmetrical. Absent : calf tenderness, cyanotic, pedal edema - Neurological Exam Neurological exam: Present: CN II-XII intact, oriented X3, no focal deficits. Absent: pronater drift, facial droop, speech deficit - Skin Skin exam: Present: dry, intact Internal Med - H&P Results - Labs CBC & Chem 7: 07/02/17 22:36 07/02/17 22:36 - EKG Data -: EKG Interpreted by Myself EKG shows normal: sinus rhythm Rate: normal
[2017-07-03] MEDS: ALPRAZolam 1 MG TABLET PO PRN ×3 (04:04→21:38)
[2017-07-03] MEDS: Ipratropium/Albuterol Neb 3 ML IH SCH ×4 (04:30→21:12)
[2017-07-03] MEDS: methylPREDNISolone 125 MG/2 ML VIAL IVP SCH ×3 (05:11→21:38)
[2017-07-03] MEDS: *HR* Heparin 5,000 UNIT/ML VIAL SQ SCH ×2 (05:12→17:35)
[2017-07-03 05:53] LABS: Basophils # 0.1 K/mcL (0.0-0.2); Basophils % 0.4 %; Hematocrit 41.7 % (35.3-44.9); Hemoglobin 13.5 g/dL (11.5-15.4); Immature Granulocytes % 0.7 % (0-4); Lymphocytes # 0.6 K/mcL (0.6-4.6); Lymphocytes % 4.8 %; Mean Corpuscular HGB Conc 32.4 g/dL (31.6-35.5); Mean Corpuscular Hemoglobin 29.8 pg (28.0-33.3); Mean Corpuscular Volume 92.1 fL (83.0-100.0); Mean Platelet Volume 10.2 fL (9.4-12.4); Monocytes % 0.3 %; Platelet Count 220 K/mcL (140-400); Red Blood Count 4.53 M/mcL (3.82-4.97); Red Cell Distribution Width 13.1 % (11.5-14.5); Segmented Neutrophils % 93.8 %
[2017-07-03 06:00] LABS: BUN/Creatinine Ratio 19 (6-26); Blood Urea Nitrogen 11 mg/dL (7-20); Carbon Dioxide 26 mEq/L (19-29); Chloride 105 mEq/L (98-109); Glucose 205 mg/dL (70-99); Magnesium 2.5 mg/dL (1.6-2.6); Osmolality,Calculated 289 (280-300); Potassium 4.2 mEq/L (3.5-4.5); Sodium 137 mEq/L (136-145); eGFR For African Americans > 60 (> 60); eGFR For Non-African Americans > 60 (> 60)
[2017-07-03] MEDS: Nicotine 14 MG PATCH.TD24 TD SCH (09:01)
[2017-07-03] MEDS: Insulin LISPRO 300 UNITS/3 ML VIAL SQ SCH ×4 (09:02→21:57)
[2017-07-03] MEDS: Budesonide/Formoterol 80/4.5 MDI IH SCH ×2 (10:28→21:12)
--- NOTE | 2017-07-03 13:48 | Event Note ---
Date of Encounter: 07/03/17 Time of Encounter: 10:00 Patient feeling better today. Denies wheezing. Shortness of breath is improving. Currently on 2.5 L O2 supplementation via nasal cannula. No chest pain. Continue current management for COPD exacerbation with bronchodilators and O2 supplementation along with intravenous steroids.
--- NOTE | 2017-07-03 17:08 | Electrocardiograph Report ---
[place] [id number] Test Date: 2017-07-02 Pat Name: Mildred Sun Department: 104 Room: 2A71 Gender: F Chest Painting Leader: REY : 1965 Requested By: Vince Alexis Order Number: [id number] Reading MD: Nancy Escalera Measurements Intervals [place] Rate: 106 P: 83 GA: 154 QRS: 87 QRSD: 68 T: 57 QT: 333 QTc: 395 Interpretive Statements SINUS TACHYCARDIA POSSIBLE LEFT ATRIAL ENLARGEMENT POSSIBLE RIGHT VENTRICULAR CONDUCTION DELAY ABNORMAL RHYTHM ECG Electronically Signed On 07-03-2017 17:06:29 EDT by Nancy Escalera
[2017-07-03] MEDS: Mirtazapine 15 MG TABLET PO SCH (21:38)
[2017-07-03] MEDS: traZODone 50 MG TABLET PO SCH (21:38)
[2017-07-04] MEDS: Ipratropium/Albuterol Neb 3 ML IH SCH ×4 (03:49→22:22)
[2017-07-04] MEDS: methylPREDNISolone 125 MG/2 ML VIAL IVP SCH (05:27)
[2017-07-04] MEDS: *HR* Heparin 5,000 UNIT/ML VIAL SQ SCH ×2 (05:27→17:05)
[2017-07-04] MEDS: Azithromycin 500 MG in D5% in Water 250 ML IVPB SCH (05:27)
[2017-07-04] MEDS: Nicotine 14 MG PATCH.TD24 TD SCH (07:54)
[2017-07-04] MEDS: Insulin LISPRO 300 UNITS/3 ML VIAL SQ SCH ×4 (07:55→22:05)
--- NOTE | 2017-07-04 09:38 | Internal Med Progress Note ---
<FredRuben - Last Filed: 07/04/17 19:00> Date of Encounter: 07/04/17 Time of Encounter: 10:20 - Assessment and plan (1) COPD exacerbation Current Visit: Yes Status: Acute Assessment and plan: Patient's breathing has improved since yesterday and back to her baseline. She will be switched to prednisone PO starting tomorrow. Continue azithromycin. Continue Duoneb. Patient also mentions that she is using more of her albuterol at home and she feels that her home symbicort is not as effective anymore. Recommend PFT after discharge and followup with box office agent. Patient also not using nebulizer at home. Followup with [employer]th grade social studies teacher to order a nebulizer for her at home. (2) Diabetes Current Visit: Yes Status: Acute Assessment and plan: Current glucose level of 205. Her elevated glucose could also be attributed to the solumedrol. Current hemoglobin A1c is at 5.9. Continue sliding scale. Qualifiers: Diabetes mellitus type: type 2 Diabetes mellitus complication status: without complication Diabetes mellitus oil heaterman insulin use: without oil heaterman use Qualified Code(s): E11.9 - Type 2 diabetes mellitus without complications (3) Leukocytosis Current Visit: Yes Status: Acute Assessment and plan: Current WBC has increased from 10.6 to 11.8. Most likely secondary to steroid treatment. (4) Malnutrition Current Visit: Yes Status: Acute Assessment and plan: Patient has a BMI of 16.8. Per nutrition consult report, patient was given oral nutrition supplement along with meals and snacks. She has a follow-up appointment on 07/10. Continue to monitor for weight changes, electrolyte, and renal profile. (5) DVT prophylaxis Current Visit: No Status: Acute Assessment and plan: On heparin. - Subjective Interval history: 51 yo F with a PMH of COPD and diabetes with a CC of shortness of breath that was admitted for COPD exacerbation. Patient has been smoking 1/2 ppd for 37 years. She denies any chest pain or cough at the time of presentation. When spoken to today, she still complains of shortness of breath when lying down, but she says that it has improved since yesterday and that she is back to her normal baseline. She admits to chills, headaches and some nausea, but she denies any vomiting, fever, or syncope. - Constitutional Vitals: Temp Pulse Resp BP Pulse Ox 97.7 F 71 16 123/73 97 07/04/17 07:25 07/04/17 07:25 07/04/17 07:25 07/04/17 07:25 07/04/17 08:01 General appearance: Present: cachectic, A&O X 3, no acute distress, underweight , answers questions appropriately - Respiratory Respiratory exam: Present: CTAB. Absent: rales, respiratory distress, rhonchi, wheezes, tachypnea - Cardiovascular Cardiovascular exam: Present: RRR, +S1, +S2. Absent: diastolic murmur, systolic murmur - GI/Abdominal GI/Abdominal exam: Present: normal bowel sounds, soft. Absent: guarding, rebound, tenderness Internal Medicine: Result - Labs CBC & Chem 7: 07/03/17 05:11 07/03/17 05:11 Consult Discharge Plan - Plan Referrals: Benjamin Thayer MD [Primary Care Provider] - 07/11/17 9:30 am (web request 07/03) <Gurwinder Vega - Last Filed: 07/04/17 19:15> Date of Encounter: 07/04/17 - Constitutional Vitals: Temp Pulse Resp BP Pulse Ox 97.7 F 98 20 109/70 95 07/04/17 16:49 07/04/17 16:49 07/04/17 16:49 07/04/17 16:49 07/04/17 16:49 Internal Medicine: Result - Labs CBC & Chem 7: 07/03/17 05:11 07/03/17 05:11 - Attending Attestation I have independently seen and examined this patient on 07/04/17 , reviewed the EMR and discussed plan of care with the patient and resident physician 51 F with emphysema and chronic respiratory failure on home O2, admitted for COPDE. Per RN BULK MAIL CLERK, patient was non-compliant with home O2 and needs requalification. She also has malnutrition with BMI of 16 Work up has been negative, she is seen at bedside and reports clinical improvement, she is ambulatory. Physical exam unremarkable change steroids to po, qualify for home O2 and continue current management Rest of details as in resident physicians documentation
[2017-07-04] MEDS: Budesonide/Formoterol 80/4.5 MDI IH SCH ×2 (10:25→22:22)
[2017-07-04] MEDS: ALPRAZolam 1 MG TABLET PO PRN ×3 (11:26→22:38)
[2017-07-04 13:15] LABS: Hemoglobin A1C 5.9 %
[2017-07-04] MEDS: Mirtazapine 15 MG TABLET PO SCH (22:03)
[2017-07-04] MEDS: traZODone 50 MG TABLET PO SCH (22:03)
[2017-07-04] MEDS: 0.9 % Sodium Chloride 1,000 ML IVC SCH (22:05)
[2017-07-05] MEDS: Azithromycin 500 MG in D5% in Water 250 ML IVPB SCH (03:36)
[2017-07-05] MEDS: Ipratropium/Albuterol Neb 3 ML IH SCH ×3 (04:21→15:24)
[2017-07-05] MEDS: *HR* Heparin 5,000 UNIT/ML VIAL SQ SCH (05:33)
[2017-07-05 05:42] LABS: Basophils % 0.1 %; Hemoglobin 12.1 g/dL (11.5-15.4); Immature Granulocytes % 0.5 % (0-4); Lymphocytes # 1.8 K/mcL (0.6-4.6); Mean Corpuscular HGB Conc 31.8 g/dL (31.6-35.5); Mean Corpuscular Hemoglobin 30.5 pg (28.0-33.3); Mean Corpuscular Volume 95.7 fL (83.0-100.0); Monocytes # 0.9 K/mcL (0.0-1.3); Monocytes % 6.2 %; Neutrophils # 12.1 K/mcL (1.6-8.9); Platelet Count 188 K/mcL (140-400); Red Blood Count 3.97 M/mcL (3.82-4.97); Red Cell Distribution Width 13.2 % (11.5-14.5); Segmented Neutrophils % 81.2 %
[2017-07-05 05:49] LABS: BUN/Creatinine Ratio 25 (6-26); Blood Urea Nitrogen 16 mg/dL (7-20); Carbon Dioxide 33 mEq/L (19-29); Chloride 105 mEq/L (98-109); Glucose 164 mg/dL (70-99); Osmolality,Calculated 299 (280-300); Potassium 3.3 mEq/L (3.5-4.5); Sodium 142 mEq/L (136-145); eGFR For African Americans > 60 (> 60); eGFR For Non-African Americans > 60 (> 60)
[2017-07-05] MEDS: Nicotine 14 MG PATCH.TD24 TD SCH (08:16)
[2017-07-05] MEDS: Insulin LISPRO 300 UNITS/3 ML VIAL SQ SCH ×3 (08:16→17:16)
[2017-07-05] MEDS ORDERED: predniSONE 20 MG TABLET PO SCH (09:00)
[2017-07-05] MEDS: Budesonide/Formoterol 80/4.5 MDI IH SCH (10:38)
[2017-07-05] MEDS ORDERED: Potassium Chloride Elixir 20 MEQ/15 ML UDC PO ONE (10:50)
[2017-07-05] MEDS: ALPRAZolam 1 MG TABLET PO PRN (11:40)
--- NOTE | 2017-07-05 12:46 | Discharge Summary ---
<SangeethaivaniaRuben - Last Filed: 07/05/17 16:16> Date of Encounter: 07/05/17 Time of Encounter: 10:15 - Discharge Diagnosis (1) COPD exacerbation Status: Acute Comments: Patient was treated with duoneb, solu-medrol, and azithromycin. She says her breathing has returned back to baseline. She was transitioned from IV solu- medrol to PO prednisone. (2) Diabetes Status: Chronic Comments: Patient was on a sliding scale during her hospital course. Here elevated glucose could also have been partially contributed by the solu-medrol. Qualifiers: Diabetes mellitus type: type 2 Diabetes mellitus complication status: without complication Diabetes mellitus skilled nursing insulin use: without skilled nursing use Qualified Code(s): E11.9 - Type 2 diabetes mellitus without complications (3) Leukocytosis Status: Acute Comments: Likely secondary to use of solu-medrol. (4) Malnutrition Status: Acute Comments: BMI of 16.9. Nutrition was consulted and they recommended monitoring weight change, glucose profile, electrolyte and renal profile. Patient has a follow-up appointment with them on 07/10/17. (5) DVT prophylaxis Status: Acute Comments: was placed on heparin. (6) Hypokalemia Status: Acute Comments: Potassium was at 3.3 today. Was given 40 meq potassium PO today. - Discharge Medications Prescriptions: Ipratropium/Albuterol Neb [Duoneb] 3 ml IH Q6HR #120 vial.neb ALPRAZolam [Xanax 1 MG Tablet] 1 mg PO BID PRN #4 tablet PRN Reason: Anxiety Azithromycin [Zithromax] 500 mg PO Q24H #3 tab Budesonide/Formoterol 160/4.5 [Symbicort 160/4.5] 1 puff IH BIDR #1 hfa.aer.ad predniSONE [PredniSONE] 40 mg PO DAILY #8 tab Home Medications: Citalopram Hydrobromide [Celexa] 40 mg PO 2100 02/14/16 [History] traZODone [TraZODone] 50 mg PO HS #0 02/14/16 [History] Albuterol Sulfate [Proair Hfa] 2 puff IH Q4H PRN 03/27/17 [History] Metformin HCl [Metformin HCl ER] 500 mg PO QPM 03/27/17 [History] Mirtazapine [Remeron] 30 mg PO HS 03/27/17 [History] ALPRAZolam [Xanax 1 MG Tablet] 1 mg PO BID PRN #4 tablet 07/05/17 [Rx] Azithromycin [Zithromax] 500 mg PO Q24H #3 tab 07/05/17 [Rx] Budesonide/Formoterol 160/4.5 [Symbicort 160/4.5] 1 puff IH BIDR #1 hfa.aer.ad 07/05/17 [Rx] Ipratropium/Albuterol Neb [Duoneb] 3 ml IH Q6HR #120 vial.neb 07/05/17 [Rx] predniSONE [PredniSONE] 40 mg PO DAILY #8 tab 07/05/17 [Rx] Allergies/Adverse Reactions: 3 Allergy/AdvReac Type Severity Reaction Status Date / Time No Known Allergies Allergy Verified 07/02/17 22:32 Date of admission: 07/03/17 12:22 Primary care physician: Benjamin Thayer MD Discharging clinician: Gurwinder Vega Anticipated date of discharge: 07/05/17 - Patient Status Disposition: Home, Self-Care Condition: Good - Discharge Instructions Instructions: Diabetes Mellitus Type 2 in Adults (DC), Chronic Obstructive Pulmonary Disease (DC) Follow Up With: Benjamin Thayer MD [Primary Care Provider] - 07/11/17 9:30 am (web request 07/03) Additional Instructions: Follow up with your PCP in the next 3-5 days for re-evaluation Patient would benefit from outpatient PFT's for staging of COPD Interval History: Patient is a 51 YO F with a PMH of COPD and diabetes mellitus that presented to the ER on 07/02/17 for worsening shortness of breath for 1 day. She admitted to wheezing and nausea at the time, but she denied any chest pain , cough, and vomiting. Hospital course: Patient is a 51 YO F with a PMH of COPD and diabetes mellitus that presented to the ER on 07/02/17 for worsening shortness of breath for 1 day. She admitted to wheezing and nausea at the time, but she denied any chest pain , cough, and vomiting. Her EKG showed sinus tachycardia with possible LA enlargement and RV conduction delay. CTA was performed to rule out pulmonary embolism. on arrival. Her troponin was 0 and she denied any chest pain. Her BNP was 32 and she denied any coughing. She was diagnosed with COPD exacerbation and treated with a nebulizer, solu-medrol, symbicort, and azithromycin. Patient is also a diabetic and was put on a sliding scale. Patient seemed to be responding well to treatment and reported yesterday that her breathing had returned back to her baseline. During the course of her stay, we noticed that her WBC was elevated, but since she was afebrile, the increase was attributed to her solu-medrol. Her blood glucose was also elevated but that could also be partially attributed to the solu-medrol. Her A1C was at 5.9. Patient also seemed to be malnourished, with a BMI of 16.3. A post hole digging machine operator was able to evaluate her and was able to manager control her oral nutrition supplement. Recommendation was to monitor weight change glucose profile, electrolyte and renal functions. Patient needs a nebulizer at home. We will work with the social work specialist on that matter. When spoken to today, patient was complaining of some minor chest congestion and rhinorrea. Overall, she says her breathing has returned back to her baseline level and she denies any fever, chills, diarrhea, constipation, dizziness, and light headedness. - Time Spent with Patient Total time spent providing and/or coordinating discharge services: Greater than 30 minutes - Constitutional Vitals: Temp Pulse Resp BP Pulse Ox 98.1 F 94 16 103/65 95 07/05/17 10:42 07/05/17 10:42 07/05/17 10:42 07/05/17 10:42 07/05/17 10:42 General appearance: Present: cachectic, A&O X 3, no acute distress, underweight , answers questions appropriately - Respiratory Respiratory exam: Present: CTAB. Absent: prolonged expiratory phase, respiratory distress, rhonchi, wheezes, tachypnea - Cardiovascular Cardiovascular exam: Present: RRR, +S1, +S2. Absent: diastolic murmur, systolic murmur, tachycardia - GI/Abdominal GI/Abdominal exam: Present: normal bowel sounds, soft. Absent: distended, guarding, rebound, tenderness <Jamie Helm - Last Filed: 07/05/17 16:49> Date of Encounter: 07/05/17 Date of admission: 07/03/17 12:22 Primary care physician: Benjamin Thayer MD - Patient Status Functional capacity at discharge: independent ambulation Overall status at discharge: patient is progressing back to baseline Hospital course: Ms. Sun is a 51 year old female - Time Spent with Patient Total time spent providing and/or coordinating discharge services: - Constitutional Vitals: Temp Pulse Resp BP Pulse Ox 97.8 F 105 16 108/70 93 07/05/17 15:45 07/05/17 15:45 07/05/17 15:45 07/05/17 15:45 07/05/17 15:45 <SilviaGurwinder Palma - Last Filed: 07/05/17 18:48> Date of Encounter: 07/05/17 Date of admission: 07/03/17 12:22 Primary care physician: Benjamin Thayer MD Hospital course: Ms. Sun is a 51 year old female - Time Spent with Patient Total time spent providing and/or coordinating discharge services: - Constitutional Vitals: Temp Pulse Resp BP Pulse Ox 97.8 F 105 16 108/70 93 07/05/17 15:45 07/05/17 15:45 07/05/17 15:45 07/05/17 15:45 07/05/17 15:45 - Attending Attestation I have independently seen and examined this patient on 07/05/17, reviewed the EMR and discussed plan of care with the patient and resident physician 51 F with emphysema and chronic respiratory failure on home O2, admitted for COPDE. She also has malnutrition with BMI of 16. She continues to smoke She is seen at bedside this morning, with no new complains and she is clinically stable to be discharged home as her respiratory status has improved Work up has been negative, she is seen at bedside and reports clinical improvement, she is ambulatory. Physical exam unremarkable-no wheezing on chest auscultation, able to complete sentences Labs and Imaging reviewed: Leukocytosis possibly from steroids, patient is making clinical improvement, has no fever and no source of infection Stable to be discharged home on nebs, symbicort, albuterol, prednisone, zihromax , home O2, home nebulizer. Follow up with Pulmonology, PCP and Batch Heat Treat Operator Plan of care discussed with patient, verbalized understanding Rest of details as in resident physicians documentation
[2017-07-05 15:46] VITALS: BP 108/70
[2017-07-06] MEDS ORDERED: Azithromycin 250 MG TABLET PO SCH (06:00)
== END 2017-07-05 18:54 | disposition home or self-care (01) | DRG 140 ==
LOC: 2ANU 22:15 → EMEROO 22:15 → 2ANU 07-03 01:44 → SUATTDRO 07-03 12:22
PROVIDERS: ADMIT Internal Medicine; ATTEND Internal Medicine

== ENCOUNTER 2017-08-27 16:41 | Observation (INO) ==
--- NOTE | 2017-08-27 18:41 | Emergency Department Note ---
START Narrative - START START: 51-year-old female complains of swollen painful warm left ankle. Patient was initially seen in the waiting room area. Patient able to partially bear weight. Prior to my arrival patient had received a left ankle x-ray would not has a protocol order. X-ray shows soft tissue swelling otherwise unremarkable. Patient denies any known injury, previous issues with her ankle. Vital signs slightly tachycardic, blood pressure 97/60. Patient is type 2DM other than that she is not known to have any immunocompromised state. Pt has h/o of COPD, she mentions she has been SOB a little worse than normal and she measured her oxygen this am and it was lower than nomral. She states her appetite has improved after starting Remeron rx by Dr. Thayer. Will order CBC, SED, CRP , uric acid for non-traumatic ankle pain and swelling. Pt also underweight BMI 16, with previous diagnosis of undernutrition. Will also order BMP for electrolytes and renal status. Patient denies any history of gout or IV drug abuse, lightheadedness.
[2017-08-27 19:58] LABS: Basophils # 0.1 K/mcL (0.0-0.2); Eosinophils # 0.1 K/mcL (0.0-0.6); Eosinophils % 1.3 %; Hemoglobin 14.1 g/dL (11.5-15.4); Immature Granulocytes % 0.1 % (0-4); Lymphocytes # 1.9 K/mcL (0.6-4.6); Lymphocytes % 26.9 %; Mean Corpuscular HGB Conc 32.8 g/dL (31.6-35.5); Mean Corpuscular Hemoglobin 30.5 pg (28.0-33.3); Mean Corpuscular Volume 92.9 fL (83.0-100.0); Mean Platelet Volume 10.3 fL (9.4-12.4); Monocytes # 0.6 K/mcL (0.0-1.3); Neutrophils # 4.3 K/mcL (1.6-8.9); Platelet Count 246 K/mcL (140-400); Red Blood Count 4.63 M/mcL (3.82-4.97); Segmented Neutrophils % 61.7 %
[2017-08-27 20:11] LABS: Uric Acid 3.7 mg/dL (2.6-6.0)
[2017-08-27 20:17] LABS: BUN/Creatinine Ratio 10 (6-26); Blood Urea Nitrogen 7 mg/dL (7-20); Calcium 9.7 mg/dL (8.6-10.8); Carbon Dioxide 33 mEq/L (19-29); Chloride 102 mEq/L (98-109); Glucose 63 mg/dL (70-99); Osmolality,Calculated 292 (280-300); Potassium 3.6 mEq/L (3.5-4.5); Sodium 143 mEq/L (136-145); eGFR For African Americans > 60 (> 60); eGFR For Non-African Americans > 60 (> 60)
[2017-08-27] MEDS ORDERED: ALPRAZolam 0.5 MG TABLET PO ONE (20:50)
[2017-08-28] MEDS ORDERED: Vancomycin 1,000 MG in D5% in Water 250 ML IVPB ONE ×2 (00:03→02:00)
[2017-08-28] MEDS ORDERED: *HR* HYDROcodone/Acet 5/325 mg TABLET PO ONE (00:04)
[2017-08-28] MEDS ORDERED: Mirtazapine 15 MG TABLET PO ONE (00:42)
[2017-08-28] MEDS ORDERED: traZODone 50 MG TABLET PO ONE (00:42)
--- NOTE | 2017-08-28 00:47 | Emergency Department Note ---
Disposition Clinical Impression: Left ankle swelling Disposition: Admitted As Inpatient General Adult HPI - General Chief complaint: ED Extremity Problem,Nontraumatic Stated complaint: L ankle pain/swelling Time Seen by Provider: 08/27/17 18:09 Source: patient Limitations: no limitations Nursing Notes Reviewed: Yes Vital Signs Reviewed: Yes - History of Present Illness HPI Narrative: This is a 51-year-old female presents with 4 days of progressive ankle swelling and warmth. No history of trauma to the ankle. She presents with circumferential swelling around the ankle joint on the left. General: No acute distress HEENT: Pupils equal and reactive to light, extraoccular muscle movement is normal, TMS are clear bilaterally. Heart: RRR, No murmor rub or gallop Lungs: lungs clear, no wheezing, rales or ronchi. ABD: SNT, no focal areas or tenderness, no guarding or rebound tenderness. Extremities: Redness and warmth and a circumferential manner around the left ankle Neuro: CN 2-12 in tact, no focal deficit. strength 5/5. Medical decision making Septic joint versus gout. CT shows cellulitis. Plan to admit with empiric anabiotic's. Ceftriaxone and vancomycin initiated. Sedimentation rate and CRP are mildly elevated. Discussed case with Dr. Camilo podiatry. He will tap her ankle in the morning. Pain Scale: 9 - Related Data Home Medications Medication Instructions Recorded Confirmed Citalopram Hydrobromide [Celexa] 40 mg PO 2100 02/14/16 07/03/17 traZODone [TraZODone] 50 mg PO HS #0 02/14/16 07/03/17 Albuterol Sulfate [Proair Hfa] 2 puff IH Q4H PRN 03/27/17 07/03/17 Metformin HCl [Metformin HCl ER] 500 mg PO QPM 03/27/17 07/03/17 Mirtazapine [Remeron] 30 mg PO HS 03/27/17 07/03/17 Previous Rx's Medication Instructions Recorded ALPRAZolam [Xanax 1 MG Tablet] 1 mg PO BID PRN #4 tablet 07/05/17 Azithromycin [Zithromax] 500 mg PO Q24H #3 tab 07/05/17 Budesonide/Formoterol 160/4.5 1 puff IH BIDR #1 hfa.aer.ad 07/05/17 [Symbicort 160/4.5] Ipratropium/Albuterol Neb [Duoneb] 3 ml IH Q6HR #120 vial.neb 07/05/17 predniSONE [PredniSONE] 40 mg PO DAILY #8 tab 07/05/17 Allergies Allergy/AdvReac Type Severity Reaction Status Date / Time No Known Allergies Allergy Verified 07/02/17 22:32 All systems ED: reviewed and negative except as stated. Past Medical History - Past Medical History Medical history: Reports: COPD, diabetes, other Surgical history: Reports: appendectomy, Psychiatric history: Reports: anxiety, depression - Social History Smoking Status: Former smoker Smokeless Tobacco Status: No Alcohol use: Reports: none Drug use: Reports: none Physical Exam - General Limitations: no limitations General appearance: alert, in no apparent distress Course Vital Signs Temperature 98.2 F 08/27/17 17:01 Pulse Rate 112 08/27/17 17:01 Respiratory Rate 18 08/27/17 17:01 Blood Pressure 97/60 08/27/17 17:01 O2 Sat by Pulse Oximetry 95 08/27/17 17:01 Temperature 98.2 F 08/27/17 17:01 Pulse Rate 112 08/27/17 17:01 Respiratory Rate 18 08/27/17 17:01 Blood Pressure 97/60 08/27/17 17:01 O2 Sat by Pulse Oximetry 95 08/27/17 17:01 Oxygen Delivery Oxygen Delivery Room Air Medical Decision Making - Lab Data Result diagrams: 08/27/17 19:26 08/27/17 19:26 Lab Results 08/27/17 08/27/17 08/27/17 Range/Units 19:26 19:26 19:26 WBC 7.0 (4.3-11.1) K/mcL RBC 4.63 (3.82-4.97) M/mcL Hgb 14.1 (11.5-15.4) g/dL Hct 43.0 (35.3-44.9) % MCV 92.9 (83.0-100.0) fL MCH 30.5 (28.0-33.3) pg MCHC 32.8 (31.6-35.5) g/dL RDW 12.0 (11.5-14.5) % Plt Count 246 (140-400) K/mcL MPV 10.3 (9.4-12.4) fL Immature Gran % 0.1 (0-4) % Seg Neutrophils % 61.7 % Lymphocytes % 26.9 % Monocytes % 9.0 % Eosinophils % 1.3 % Basophils % 1.0 % Neutrophils # 4.3 (1.6-8.9) K/mcL Lymphocytes # 1.9 (0.6-4.6) K/mcL Monocytes # 0.6 (0.0-1.3) K/mcL Eosinophils # 0.1 (0.0-0.6) K/mcL Basophils # 0.1 (0.0-0.2) K/mcL ESR 37 H (0-15) mm/hr Sodium (136-145) mEq/L Potassium (3.5-4.5) mEq/L Chloride (98-109) mEq/L Carbon Dioxide (19-29) mEq/L BUN (7-20) mg/dL Creatinine (0.57-1.11) mg/dL Est GFR ( Amer) (> 60) Est GFR (Non-Af Amer) (> 60) BUN/Creatinine Ratio (6-26) Glucose (70-99) mg/dL Calculated Osmolality (280-300) Uric Acid 3.7 (2.6-6.0) mg/dL Calcium (8.6-10.8) mg/dL C-Reactive Protein 12 H (Less than 5) mg/L 08/27/17 Range/Units 19:26 WBC (4.3-11.1) K/mcL RBC (3.82-4.97) M/mcL Hgb (11.5-15.4) g/dL Hct (35.3-44.9) % MCV (83.0-100.0) fL MCH (28.0-33.3) pg MCHC (31.6-35.5) g/dL RDW (11.5-14.5) % Plt Count (140-400) K/mcL MPV (9.4-12.4) fL Immature Gran % (0-4) % Seg Neutrophils % % Lymphocytes % % Monocytes % % Eosinophils % % Basophils % % Neutrophils # (1.6-8.9) K/mcL Lymphocytes # (0.6-4.6) K/mcL Monocytes # (0.0-1.3) K/mcL Eosinophils # (0.0-0.6) K/mcL Basophils # (0.0-0.2) K/mcL ESR (0-15) mm/hr Sodium 143 (136-145) mEq/L Potassium 3.6 (3.5-4.5) mEq/L Chloride 102 (98-109) mEq/L Carbon Dioxide 33 H (19-29) mEq/L BUN 7 (7-20) mg/dL Creatinine 0.70 (0.57-1.11) mg/dL Est GFR ( Amer) > 60 (> 60) Est GFR (Non-Af Amer) > 60 (> 60) BUN/Creatinine Ratio 10 (6-26) Glucose 63 L (70-99) mg/dL Calculated Osmolality 292 (280-300) Uric Acid (2.6-6.0) mg/dL Calcium 9.7 (8.6-10.8) mg/dL C-Reactive Protein (Less than 5) mg/L
[2017-08-28] MEDS ORDERED: Ipratropium/Albuterol Neb 3 ML IH PRN ×2 (02:14→10:19)
[2017-08-28] MEDS: Ipratropium/Albuterol Neb 3 ML IH SCH ×4 (02:20→21:18)
[2017-08-28] MEDS ORDERED: Naloxone 0.4 MG/ML INJ IVP PRN (07:23)
[2017-08-28] MEDS ORDERED: Ondansetron 4 MG/2 ML VIAL IVP PRN (07:23)
[2017-08-28] MEDS ORDERED: Dextrose Gel 15 GM PO PRN ×2 (07:26)
[2017-08-28] MEDS ORDERED: *HR* Dextrose 50 % in Water (Syg) 50 ML SYRINGE IVP PRN (07:26)
[2017-08-28] MEDS ORDERED: D5% in Water 1,000 ML IVC PRN (07:26)
[2017-08-28] MEDS: Insulin LISPRO 300 UNITS/3 ML VIAL SQ SCH ×4 (07:30→21:27)
[2017-08-28 08:33] LABS: Chol/HDL Ratio 4.3 (0-4.9); Magnesium 2.1 mg/dL (1.6-2.6)
--- NOTE | 2017-08-28 10:25 | Internal Med History&Physical ---
Date of Encounter: 08/28/17 Time of Encounter: 08:45 Assessment and Plan (1) Left ankle swelling Current visit: Yes Status: Acute Acute left foot cellulitis - unclear etiology, no h/o injury Continue empiric IV Rocephin, IV Vancomycin US Doppler - negative for DVT CT left ankle - extensive subcutaneous soft tissue edema of the distal calf, ankle and foot, possible cellulitis with no abscess Podiatry consult - Dr Benítez Monitor closely, labs in a.m., cardiac telemetry (2) Depression Current visit: No Status: Chronic Stable, continue home meds Qualifiers: Depression Type: major depressive disorder Major depression recurrence: recurrent Major depression episode severity: unspecified Qualified Code(s): F33.9 - Major depressive disorder, recurrent, unspecified (3) COPD (chronic obstructive pulmonary disease) Current visit: No Status: Chronic Stable, continue DuoNeb breathing treatment, Symbicort Qualifiers: COPD type: unspecified COPD Qualified Code(s): J44.9 - Chronic obstructive pulmonary disease, unspecified (4) Diabetes Current visit: No Status: Chronic Diabetes mellitus type 2, [id number], hyperglycemia hold Metformin, continue insulin scale and glucose checks Qualifiers: Diabetes mellitus type: type 2 Diabetes mellitus complication status: without complication Diabetes mellitus prison insulin use: without oysterman use Qualified Code(s): E11.9 - Type 2 diabetes mellitus without complications (5) DVT prophylaxis Current visit: No Status: Acute continue heparin subcutaneous Internal Medicine - H&P: HPI Chief complaint: left foot pain and swelling Admitted From: Emergency Dept Plans for Post Hospital Care: Home History of present illness: Ms. Sun is a 51 year old female with past medical history of COPD, depression, anxiety and diabetes. Patient presents to the ED with complaints of left ankle pain and swelling. Examined in the room. Patient is awake and alert. Not in any distress. Able to provide all history. No family members at bedside. Patient states her left ankle started to hurt about 5 days ago. She also developed swelling. Symptoms have gradually worsened. She describes the pain as dull and constant. Rates it 7 out of 10. Worse with movement and weightbearing. No alleviating factors. Patient denies any injury. No fever. She denies chest pain or shortness of breath. Denies abdominal pain or vomiting or diarrhea. No other associated symptoms. No acute complaints. 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 Initial workup in the ED is significant for extensive subcutaneous soft tissue edema of the distal calf and ankle and foot seen on CT of the left ankle. All other workup is negative. Patient is being admitted for left foot and lower leg cellulitis. She will need IV antibiotics. Podiatry consult pending. She has been explained about her condition and plan of care. Patient understood and agreed. No unanswered questions. CODE STATUS full code. Past Med Surg Social Fam HX - Past Medical History Medical history: COPD, diabetes, other Psychiatric history: anxiety, depression - Past Surgical History Surgical History: appendectomy, - Social History Smoking Status: Former smoker Smokeless Tobacco Status: No Alcohol use: none Drug use: none - Family History Mother Living Status: Hx Family Respiratory Disorders: Yes Hx Family Endocrine Disorder: Yes Hx Family Neurologic Disorders: Yes (stroke) Father Living Status: Hx Family Cardiac Disorders: Yes ([place]) Hx Family Cancer: Yes Hx Family Endocrine Disorder: Yes (diabetes) Internal Medicine - H&P: Meds Citalopram Hydrobromide [Celexa] 40 mg PO 2100 02/14/16 [History] traZODone [TraZODone] 50 - 100 mg PO HS #0 02/14/16 [History] Metformin HCl [Metformin HCl ER] 500 mg PO QPM 03/27/17 [History] Mirtazapine [Remeron] 30 mg PO HS 03/27/17 [History] ALPRAZolam [Xanax 0.5 MG Tablet] 0.5 mg PO BID 08/28/17 [History] Albuterol Sulfate [Albuterol Inhaler] 2 puff IH Q4HR PRN 08/28/17 [History] Budesonide/Formoterol 160/4.5 [Symbicort 160/4.5] 1 puff IH BIDR 08/28/17 [ History] Ipratropium/Albuterol Neb [Duoneb] 3 ml IH Q6HR PRN 08/28/17 [History] 3 Allergy/AdvReac Type Severity Reaction Status Date / Time No Known Allergies Allergy Verified 07/02/17 22:32 All Systems PM: A 10-system review of systems was performed and is negative for pertinent findings except as documented above in the HPI. - Constitutional Constitutional: fatigue, no fever(s), no weakness - EENT Eyes: no blurry vision - Cardiovascular Cardiovascular ROS IM: no chest pain, no diaphoresis, no dyspnea, no dyspnea on exertion, no edema, no lightheadedness, no orthopnea, no palpitations, no syncope - Respiratory Respiratory: no cough, no dyspnea, no hemoptysis, no dyspnea on exertion, no wheezing, no chest congestion - Gastrointestinal Gastrointestinal: no abdominal pain, no bloating, no cramping, no diarrhea, no hematochezia, no nausea, no vomiting - Musculoskeletal Musculoskeletal ROS IM: other (Left ankle pain and swelling) - Neurological Neurological ROS: no abnormal gait, no confusion, no convulsions, no dizziness, no numbness, no tingling - Constitutional Vitals: Temp Pulse Resp BP Pulse Ox 97.4 F L 83 18 119/73 93 08/28/17 07:38 08/28/17 07:38 08/28/17 07:38 08/28/17 07:38 08/28/17 07:38 General appearance: Present: cooperative, A&O X 3, pleasant, no acute distress, answers questions appropriately - Head Head exam: Present: atraumatic - Eye Eye exam: Present: EOMI - ENT ENT exam: Present: mucous membranes moist - Respiratory Respiratory exam: Present: CTAB. Absent: rales, rhonchi, wheezes, tachypnea - Cardiovascular Cardiovascular exam: Present: RRR, +S1, +S2 - GI/Abdominal GI/Abdominal exam: Present: soft. Absent: distended, firm, guarding, tenderness - Extremities Exam Extremities exam: Present: radial pulses palpable and symmetrical. Absent: calf tenderness, cyanotic Additional comments: Swelling over left ankle medial and lateral aspect, swelling over he will on the left side. Tenderness over ankle and heel without erythema. Normal range of motion. - Neurological Exam Neurological exam: Present: alert, oriented X3, no focal deficits. Absent: facial droop, speech deficit Internal Med - H&P Results - Labs CBC & Chem 7: 08/27/17 19:26 08/27/17 19:26
[2017-08-28] MEDS: Budesonide/Formoterol 160/4.5 MDI IH SCH ×2 (10:46→21:18)
[2017-08-28] MEDS: ALPRAZolam 0.5 MG TABLET PO SCH ×2 (11:56→21:35)
[2017-08-28] MEDS: Vancomycin 750 MG in D5% in Water 250 ML IVPB SCH (15:56)
--- NOTE | 2017-08-28 17:54 | Podiatry Consult Note ---
Date of Encounter: 08/28/17 Time of Encounter: 17:00 Assessment and Plan (1) Cellulitis Current visit: Yes Status: Acute Continue current antibiotic therapy Findings consistent with superficial cellulitis No concern of septic joint at this time Qualifiers: Site of cellulitis: extremity Site of cellulitis of extremity: lower extremity Laterality: left Qualified Code(s): L03.116 - Cellulitis of left lower limb (2) Left ankle pain Current visit: Yes Status: Acute Assessment: left ankle pain Plan: CT negative for abscess formation, no white count and no left shift- minimal concern of septic joint at this time- If joint pain, edema, pain is continued MRI may be warranted. Patient has pain at Achilles insertion site and plantar fascia insertion site with movement There is localized edema and mild erythema surrounding ankle- Xray, CT and clinical findings suggestive of OA Recommend burst and diminish dose pack of steroids, antibiotics and rest of ankle Uric acid levels were drawn to rule out gout- 3.2- no concern of acute gouty process. Qualifiers: Chronicity: acute Qualified Code(s): M25.572 - Pain in left ankle and joints of left foot History of Present Illness HPI: Ms. Sun is a 51 year old female who was consulted to our services regarding left ankle pain and edema. Patient was admitted to [facility] yesterday. Patient states she started having ankle pain and swelling about 5 days ago without recall of any injury or trauma. Reports no abrasions or open skin lesions. Patient denies any hx of septic infectious processes. Patient states the pain is to her ankle and her heel. Patient states pain and swelling is somewhat better today. Denies any fevers, chills, n/v or flu like symptoms Past Med Surg Social Fam HX - Past Medical History Medical history: COPD, diabetes, other Psychiatric history: anxiety, depression - Past Surgical History Surgical History: appendectomy, - Social History Smoking Status: Former smoker Smokeless Tobacco Status: No Alcohol use: none Drug use: none - Family History Mother Living Status: Hx Family Respiratory Disorders: Yes Hx Family Endocrine Disorder: Yes Hx Family Neurologic Disorders: Yes (stroke) Father Living Status: Hx Family Cardiac Disorders: Yes ([place]) Hx Family Cancer: Yes Hx Family Endocrine Disorder: Yes (diabetes) Medications and Allergies Citalopram Hydrobromide [Celexa] 40 mg PO 2100 02/14/16 [History] traZODone [TraZODone] 50 - 100 mg PO HS #0 02/14/16 [History] Metformin HCl [Metformin HCl ER] 500 mg PO QPM 03/27/17 [History] Mirtazapine [Remeron] 30 mg PO HS 03/27/17 [History] ALPRAZolam [Xanax 0.5 MG Tablet] 0.5 mg PO BID 08/28/17 [History] Albuterol Sulfate [Albuterol Inhaler] 2 puff IH Q4HR PRN 08/28/17 [History] Budesonide/Formoterol 160/4.5 [Symbicort 160/4.5] 1 puff IH BIDR 08/28/17 [ History] Ipratropium/Albuterol Neb [Duoneb] 3 ml IH Q6HR PRN 08/28/17 [History] 3 Allergy/AdvReac Type Severity Reaction Status Date / Time No Known Allergies Allergy Verified 07/02/17 22:32 All Systems Reviewed: A 10-system review of systems was performed and is negative for pertinent findings except as documented above in the HPI. Physical Exam - Constitutional Vitals: Temp Pulse Resp BP Pulse Ox 98.4 F 89 18 99/64 95 08/28/17 15:04 08/28/17 15:04 08/28/17 16:37 08/28/17 15:04 08/28/17 16:37 Exam: Awake, alert and oriented Pulses palpable DP/PT Skin temperature warm toes to tibia There is slight edema and erythema surrounding lateral malleolus - minimal warmth There is no fluctuance noted to joint spaces, no pain to joint spaces with movement Clinical findings are not consistent with a septic joint space. Patient does report pain to achilles insertion site with dorsalflexion reports pain to plantar fascia insertion site with inversion of foot-- consistent with plantar fasciitis Sensation intact with light touch No calf pain with manual compression No noted skin lesions, abrasions or ulcerations. Results - Labs Result Diagrams: 08/29/17 04:48 08/29/17 04:48 Labs: Abnormal lab results ESR 37 mm/hr (0-15) H 08/27/17 19:26 Carbon Dioxide 33 mEq/L (19-29) H 08/27/17 19:26 Glucose 63 mg/dL (70-99) L 08/27/17 19:26 POC Glucose 112 (58-89) H 08/28/17 16:16 C-Reactive Protein 12 mg/L (Less than 5) H 08/27/17 19:26 Cholesterol 217 mg/dL (< 200) H 08/28/17 07:42 LDL Cholesterol, Calc 147 mg/dL (0-99) H 08/28/17 07:42 All other labs normal. Consult Discharge Plan - Plan Referrals: Benjamin Thayer MD [Primary Care Provider] -
[2017-08-28] MEDS ORDERED: Vancomycin 1,000 MG in D5% in Water 250 ML IVPB SCH (18:00)
[2017-08-28] MEDS: *HR* Heparin 5,000 UNIT/ML VIAL SQ SCH (19:24)
[2017-08-28] MEDS: Famotidine 20 MG/2 ML VIAL IVP SCH (19:25)
[2017-08-28] MEDS ORDERED: ALPRAZolam 0.5 MG TABLET PO SCH (21:00)
[2017-08-28] MEDS: Nicotine 7 MG PATCH.TD24 TD SCH (21:34)
[2017-08-28] MEDS: Mirtazapine 15 MG TABLET PO SCH (21:35)
[2017-08-28] MEDS: traZODone 50 MG TABLET PO SCH (21:35)
[2017-08-28] MEDS: Acetaminophen 325 MG TABLET PO PRN (21:36)
[2017-08-28] MEDS ORDERED: Budesonide/Formoterol 160/4.5 MDI IH SCH (22:00)
[2017-08-29] MEDS: *HR* Morphine 2 MG/ML SYRINGE IVP PRN ×2 (03:00→20:25)
[2017-08-29] MEDS: Vancomycin 750 MG in D5% in Water 250 ML IVPB SCH (03:02)
[2017-08-29] MEDS: Ipratropium/Albuterol Neb 3 ML IH SCH ×4 (04:24→21:10)
[2017-08-29 05:14] LABS: Basophils # 0.1 K/mcL (0.0-0.2); Basophils % 1.3 %; Eosinophils # 0.1 K/mcL (0.0-0.6); Eosinophils % 2.3 %; Hematocrit 35.1 % (35.3-44.9); Immature Granulocytes % 0.3 % (0-4); Lymphocytes # 1.1 K/mcL (0.6-4.6); Lymphocytes % 26.8 %; Mean Corpuscular HGB Conc 32.5 g/dL (31.6-35.5); Mean Corpuscular Hemoglobin 30.9 pg (28.0-33.3); Mean Corpuscular Volume 95.1 fL (83.0-100.0); Mean Platelet Volume 10.5 fL (9.4-12.4); Monocytes # 0.4 K/mcL (0.0-1.3); Monocytes % 10.6 %; Neutrophils # 2.3 K/mcL (1.6-8.9); Platelet Count 185 K/mcL (140-400); Red Blood Count 3.69 M/mcL (3.82-4.97); Red Cell Distribution Width 11.9 % (11.5-14.5); Segmented Neutrophils % 58.7 %
[2017-08-29 05:15] LABS: Hemoglobin 11.4 g/dL (11.5-15.4)
[2017-08-29 05:39] LABS: BUN/Creatinine Ratio 18 (6-26); Blood Urea Nitrogen 13 mg/dL (7-20); Calcium 8.5 mg/dL (8.6-10.8); Carbon Dioxide 33 mEq/L (19-29); Chloride 101 mEq/L (98-109); Glucose 193 mg/dL (70-99); Osmolality,Calculated 293 (280-300); Potassium 3.9 mEq/L (3.5-4.5); Sodium 139 mEq/L (136-145); eGFR For African Americans > 60 (> 60); eGFR For Non-African Americans > 60 (> 60)
[2017-08-29] MEDS: *HR* Heparin 5,000 UNIT/ML VIAL SQ SCH ×2 (05:47→18:09)
[2017-08-29] MEDS: Famotidine 20 MG/2 ML VIAL IVP SCH ×2 (05:47→18:09)
[2017-08-29] MEDS: Insulin LISPRO 300 UNITS/3 ML VIAL SQ SCH ×5 (08:19→20:36)
[2017-08-29 08:49] LABS: Bilirubin,Urine Negative (Negative); Blood,Urine Negative (Negative); Clarity,Urine Clear (Clear); Color,Urine Yellow (Yellow); Glucose,Urine (UA) Normal (Normal); Ketones,Urine Negative (Negative); Leukocyte Esterase,Urine Negative (Negative); Nitrite,Urine Negative (Negative); PH,Urine 5.5 pH Units (5.0-8.0); Protein,Urine Negative (Neg-Trace); Specific Gravity,Urine 1.026 (1.010-1.025); Urobilinogen,Urine Normal (Normal)
[2017-08-29] MEDS: ALPRAZolam 0.5 MG TABLET PO SCH ×2 (09:10→20:25)
[2017-08-29] MEDS: Nicotine 7 MG PATCH.TD24 TD SCH (09:10)
[2017-08-29] MEDS: Budesonide/Formoterol 160/4.5 MDI IH SCH ×2 (10:51→21:11)
[2017-08-29] MEDS: Acetaminophen 325 MG TABLET PO PRN (13:03)
--- NOTE | 2017-08-29 13:41 | Internal Med Progress Note ---
Date of Encounter: 08/29/17 Time of Encounter: 08:45 - Assessment and plan (1) Left ankle swelling Current Visit: Yes Status: Acute Assessment and plan: Acute left foot cellulitis - unclear etiology, no h/o injury - slowly improving Continue empiric IV Rocephin, IV Vancomycin US Doppler - negative for DVT CT left ankle - extensive subcutaneous soft tissue edema of the distal calf, ankle and foot, possible cellulitis with no abscess Podiatry consult - Dr Benítez Monitor closely, labs in a.m., cardiac telemetry (2) Depression Current Visit: No Status: Chronic Assessment and plan: Stable, continue home meds including Celexa, Remeron and trazodone Qualifiers: Depression Type: major depressive disorder Major depression recurrence: recurrent Major depression episode severity: unspecified Qualified Code(s): F33.9 - Major depressive disorder, recurrent, unspecified (3) COPD (chronic obstructive pulmonary disease) Current Visit: No Status: Chronic Assessment and plan: Stable, continue DuoNeb breathing treatment, Symbicort Qualifiers: COPD type: unspecified COPD Qualified Code(s): J44.9 - Chronic obstructive pulmonary disease, unspecified (4) Diabetes Current Visit: No Status: Chronic Assessment and plan: Diabetes mellitus type 2, omh-ijvibuz-vhitbduzz, hyperglycemia hold Metformin, continue insulin scale and glucose checks Qualifiers: Diabetes mellitus type: type 2 Diabetes mellitus complication status: without complication Diabetes mellitus exterminator termite insulin use: without exterminator termite use Qualified Code(s): E11.9 - Type 2 diabetes mellitus without complications (5) DVT prophylaxis Current Visit: No Status: Acute Assessment and plan: Continue heparin subcutaneous - Time Spent With Patient 25 - 35 minutes - Subjective Interval history: Examined this morning. Patient is awake and alert. Not in any distress. Denies chest pain or shortness of breath. No fever. Hemodynamically stable. Complains of mild pain over left heel and ankle. Worse with weightbearing. Improves with pain medication. Rates it to 4 out of 10. Patient states swelling has improved. No other acute events or complaints. - Constitutional Vitals: Temp Pulse Resp BP Pulse Ox 97.7 F 94 16 115/72 98 08/29/17 11:44 08/29/17 11:44 08/29/17 11:44 08/29/17 11:44 08/29/17 11:44 General appearance: Present: cooperative, A&O X 3, pleasant, no acute distress, answers questions appropriately - Head Head exam: Present: atraumatic - Eye Eye exam: Present: EOMI - ENT ENT exam: Present: mucous membranes moist - Respiratory Respiratory exam: Present: CTAB. Absent: rales, rhonchi, wheezes, tachypnea - Cardiovascular Cardiovascular exam: Present: RRR, +S1, +S2 - GI/Abdominal GI/Abdominal exam: Present: soft. Absent: distended, firm, guarding, tenderness - Extremities Exam Extremities exam: Present: radial pulses palpable and symmetrical. Absent: calf tenderness, cyanotic, pedal edema Additional comments: Swelling over left ankle medial and lateral aspect, swelling over he will on the left side. Tenderness over ankle and heel without erythema. Swelling and erythema have now improved. Normal range of motion. - Neurological Exam Neurological exam: Present: alert, oriented X3, no focal deficits. Absent: facial droop, speech deficit Internal Medicine: Result - Labs CBC & Chem 7: 08/29/17 04:48 08/29/17 04:48 Labs: Short CBC 08/29/17 Range/Units 04:48 WBC 4.0 L (4.3-11.1) K/mcL Hgb 11.4 L D (11.5-15.4) g/dL Hct 35.1 L (35.3-44.9) % Plt Count 185 (140-400) K/mcL Neutrophils # 2.3 (1.6-8.9) K/mcL BMP 08/29/17 04:48 Sodium 139 Potassium 3.9 Chloride 101 Carbon Dioxide 33 H BUN 13 Creatinine 0.71 Glucose 193 H Calcium 8.5 L Urine 08/29/17 Range/Units 08:36 Urine Color Yellow (Yellow) Urine Clarity Clear (Clear) Urine pH 5.5 (5.0-8.0) pH Units Ur Specific [place] 1.026 H (1.010-1.025) Urine Protein Negative (Neg-Trace) mg/dL Urine Glucose (UA) Normal (Normal) mg/dL Consult Discharge Plan - Plan Referrals: Benjamin Thayer MD [Primary Care Provider] -
[2017-08-29] MEDS: Vancomycin 1,000 MG in D5% in Water 250 ML IVPB SCH (17:59)
[2017-08-29] MEDS: Mirtazapine 15 MG TABLET PO SCH (20:24)
[2017-08-29] MEDS: traZODone 50 MG TABLET PO SCH (20:25)
[2017-08-30] MEDS: Ipratropium/Albuterol Neb 3 ML IH SCH ×4 (03:43→21:38)
[2017-08-30] MEDS: *HR* Heparin 5,000 UNIT/ML VIAL SQ SCH ×2 (05:01→18:25)
[2017-08-30] MEDS: Famotidine 20 MG/2 ML VIAL IVP SCH ×2 (05:01→18:25)
[2017-08-30] MEDS: Vancomycin 1,000 MG in D5% in Water 250 ML IVPB SCH ×2 (06:24→16:07)
[2017-08-30 06:26] LABS: Basophils # 0.1 K/mcL (0.0-0.2); Basophils % 1.1 %; Eosinophils # 0.1 K/mcL (0.0-0.6); Eosinophils % 2.4 %; Hematocrit 36.5 % (35.3-44.9); Hemoglobin 11.6 g/dL (11.5-15.4); Immature Granulocytes % 0.2 % (0-4); Lymphocytes # 1.1 K/mcL (0.6-4.6); Lymphocytes % 22.8 %; Mean Corpuscular HGB Conc 31.8 g/dL (31.6-35.5); Mean Corpuscular Hemoglobin 30.5 pg (28.0-33.3); Mean Corpuscular Volume 96.1 fL (83.0-100.0); Mean Platelet Volume 10.6 fL (9.4-12.4); Monocytes # 0.5 K/mcL (0.0-1.3); Neutrophils # 2.9 K/mcL (1.6-8.9); Platelet Count 206 K/mcL (140-400); Red Cell Distribution Width 11.9 % (11.5-14.5); Segmented Neutrophils % 62.5 %
[2017-08-30] MEDS: ALPRAZolam 0.5 MG TABLET PO SCH ×2 (10:03→20:19)
[2017-08-30] MEDS: Nicotine 7 MG PATCH.TD24 TD SCH (10:03)
[2017-08-30] MEDS: *HR* Morphine 2 MG/ML SYRINGE IVP PRN ×3 (10:03→21:08)
[2017-08-30] MEDS: Insulin LISPRO 300 UNITS/3 ML VIAL SQ SCH ×4 (10:09→21:09)
--- NOTE | 2017-08-30 11:17 | Electrocardiograph Report ---
[place] [id number] Test Date: 2017-08-29 Pat Name: NIKITA CALLAWAY Department: 115 Room: 23 Gender: Female Want Ad Receiver: JAVON : 1965 Requested By: Order Number: [id number] Reading MD: Jose Gilbert MD Measurements Intervals [place] Rate: 92 P: 87 MA: 157 QRS: 83 QRSD: 67 T: 37 QT: 336 QTc: 386 Interpretive Statements SINUS RHYTHM BASELINE ARTIFACT Electronically Signed On 08-30-2017 11:15:48 EDT by Jose Gilbert MD
[2017-08-30] MEDS: Budesonide/Formoterol 160/4.5 MDI IH SCH ×2 (15:15→21:38)
--- NOTE | 2017-08-30 18:32 | Internal Med Progress Note ---
Date of Encounter: 08/30/17 Time of Encounter: 09:10 - Assessment and plan (1) Left ankle swelling Current Visit: Yes Status: Acute Assessment and plan: Acute left foot cellulitis - unclear etiology, no h/o injury - slowly improving Continue empiric IV Rocephin, IV Vancomycin US Doppler - negative for DVT CT left ankle - extensive subcutaneous soft tissue edema of the distal calf, ankle and foot, possible cellulitis with no abscess Podiatry consult - Dr Benítez - advised to continue current medication Monitor closely, labs in a.m., cardiac telemetry Anticipate discharge in a.m. (2) Depression Current Visit: No Status: Chronic Assessment and plan: Stable, continue home meds including Celexa, Remeron and trazodone Qualifiers: Depression Type: major depressive disorder Major depression recurrence: recurrent Major depression episode severity: unspecified Qualified Code(s): F33.9 - Major depressive disorder, recurrent, unspecified (3) COPD (chronic obstructive pulmonary disease) Current Visit: No Status: Chronic Assessment and plan: Stable, continue DuoNeb breathing treatment, Symbicort Qualifiers: COPD type: unspecified COPD Qualified Code(s): J44.9 - Chronic obstructive pulmonary disease, unspecified (4) Diabetes Current Visit: No Status: Chronic Assessment and plan: Diabetes mellitus type 2, ojq-umzjuay-kaqxzzfeb, hyperglycemia hold Metformin, continue insulin scale and glucose checks Qualifiers: Diabetes mellitus type: type 2 Diabetes mellitus complication status: without complication Diabetes mellitus senior living insulin use: without intermediate school teacher use Qualified Code(s): E11.9 - Type 2 diabetes mellitus without complications (5) DVT prophylaxis Current Visit: No Status: Acute Assessment and plan: Continue heparin subcutaneous - Time Spent With Patient 25 - 35 minutes - Subjective Interval history: Examined this morning. Patient is awake and alert. Not in any distress. Denies chest pain or shortness of breath. No fever. Hemodynamically stable. Complains of mild pain over left heel and ankle. Worse with weightbearing. Improves with pain medication. Rates it to 5 out of 10. Patient states swelling has improved. Redness has improved. No other acute events or complaints. Anticipate discharge in a.m. - Constitutional Vitals: Temp Pulse Resp BP Pulse Ox 97.8 F 98 18 172/90 96 08/30/17 15:00 08/30/17 15:00 08/30/17 16:17 08/30/17 15:00 08/30/17 16:17 General appearance: Present: cooperative, A&O X 3, pleasant, no acute distress, answers questions appropriately - Head Head exam: Present: atraumatic - Eye Eye exam: Present: EOMI - ENT ENT exam: Present: mucous membranes moist - Respiratory Respiratory exam: Present: CTAB. Absent: rales, rhonchi, wheezes, tachypnea - Cardiovascular Cardiovascular exam: Present: RRR, +S1, +S2 - GI/Abdominal GI/Abdominal exam: Present: soft. Absent: distended, firm, guarding, tenderness - Extremities Exam Extremities exam: Present: radial pulses palpable and symmetrical. Absent: calf tenderness, cyanotic, pedal edema Additional comments: Swelling over left ankle medial and lateral aspect, swelling over he will on the left side. Tenderness over ankle and heel without erythema. Swelling and erythema have now improved. Normal range of motion. - Neurological Exam Neurological exam: Present: alert, oriented X3, no focal deficits. Absent: facial droop, speech deficit Internal Medicine: Result - Labs CBC & Chem 7: 08/30/17 05:25 08/29/17 04:48 Labs: Short CBC 08/30/17 Range/Units 05:25 WBC 4.7 (4.3-11.1) K/mcL Hgb 11.6 (11.5-15.4) g/dL Hct 36.5 (35.3-44.9) % Plt Count 206 (140-400) K/mcL Neutrophils # 2.9 (1.6-8.9) K/mcL Consult Discharge Plan - Plan Referrals: Benjamin Thayer MD [Primary Care Provider] - 09/10/17 1:15 pm
[2017-08-30] MEDS: traZODone 50 MG TABLET PO SCH (20:19)
[2017-08-30] MEDS: Mirtazapine 15 MG TABLET PO SCH (20:19)
[2017-08-31] MEDS: Ipratropium/Albuterol Neb 3 ML IH SCH ×2 (04:28→12:14)
[2017-08-31] MEDS: Vancomycin 1,000 MG in D5% in Water 250 ML IVPB SCH (05:10)
[2017-08-31] MEDS: Famotidine 20 MG/2 ML VIAL IVP SCH (05:11)
[2017-08-31] MEDS: *HR* Morphine 2 MG/ML SYRINGE IVP PRN (05:42)
[2017-08-31] MEDS: *HR* Heparin 5,000 UNIT/ML VIAL SQ SCH (05:44)
[2017-08-31] MEDS ORDERED: predniSONE 20 MG TABLET PO SCH (08:00)
[2017-08-31] MEDS: Insulin LISPRO 300 UNITS/3 ML VIAL SQ SCH (08:13)
[2017-08-31] MEDS: Nicotine 7 MG PATCH.TD24 TD SCH (08:16)
[2017-08-31] MEDS: ALPRAZolam 0.5 MG TABLET PO SCH (08:17)
[2017-08-31] MEDS ORDERED: Ibuprofen 400 MG TABLET PO PRN (08:32)
--- NOTE | 2017-08-31 10:08 | Discharge Summary ---
Date of Encounter: 08/31/17 Time of Encounter: 08:15 - Discharge Diagnosis (1) Left ankle swelling Priority: Primary Status: Acute Comments: Acute left foot cellulitis - unclear etiology, no h/o injury - now improved Continue PO Bactrim DS on discharge US Doppler - negative for DVT CT left ankle - extensive subcutaneous soft tissue edema of the distal calf, ankle and foot, possible cellulitis with no abscess Podiatry consult - Dr Benítez - advised to continue current medication Monitor closely, labs in a.m., cardiac telemetry Return if symptoms worsen, follow up with primary care physician (2) COPD (chronic obstructive pulmonary disease) Priority: Primary Status: Chronic Comments: Stable, continue DuoNeb breathing treatment, Symbicort Qualifiers: COPD type: unspecified COPD Qualified Code(s): J44.9 - Chronic obstructive pulmonary disease, unspecified (3) Depression Priority: Secondary Status: Chronic Comments: Stable, continue home meds including Celexa, Remeron and Trazodone Qualifiers: Depression Type: major depressive disorder Major depression recurrence: recurrent Major depression episode severity: unspecified Qualified Code(s): F33.9 - Major depressive disorder, recurrent, unspecified (4) Diabetes Priority: Secondary Status: Chronic Comments: Diabetes mellitus type 2, [id number], hyperglycemia Continue home dose of Metformin Qualifiers: Diabetes mellitus type: type 2 Diabetes mellitus complication status: without complication Diabetes mellitus intermediate accountant insulin use: without mcc use Qualified Code(s): E11.9 - Type 2 diabetes mellitus without complications - Discharge Medications Prescriptions: Ibuprofen [Motrin] 400 mg PO Q6HR PRN #20 tablet PRN Reason: Mild Pain Sulfamethoxazole/Trimeth DS [Bactrim DS] 1 each PO BID 10 Days #20 tablet Home Medications: Citalopram Hydrobromide [Celexa] 40 mg PO 2100 02/14/16 [History] traZODone [TraZODone] 50 - 100 mg PO HS #0 02/14/16 [History] Metformin HCl [Metformin HCl ER] 500 mg PO QPM 03/27/17 [History] Mirtazapine [Remeron] 30 mg PO HS 03/27/17 [History] ALPRAZolam [Xanax 0.5 MG Tablet] 0.5 mg PO BID 08/28/17 [History] Albuterol Sulfate [Albuterol Inhaler] 2 puff IH Q4HR PRN 08/28/17 [History] Budesonide/Formoterol 160/4.5 [Symbicort 160/4.5] 1 puff IH BIDR 08/28/17 [ History] Ipratropium/Albuterol Neb [Duoneb] 3 ml IH Q6HR PRN 08/28/17 [History] Ibuprofen [Motrin] 400 mg PO Q6HR PRN #20 tablet 08/31/17 [Rx] Sulfamethoxazole/Trimeth DS [Bactrim DS] 1 each PO BID 10 Days #20 tablet [Rx] Allergies/Adverse Reactions: 3 Allergy/AdvReac Type Severity Reaction Status Date / Time No Known Allergies Allergy Verified 07/02/17 22:32 Procedures/tests Complete & Pending: Procedures Performed prior 72 hours Category Date Time Status ECG 12 lead ECG [ECG] Routine Y 08/29/17 12:57 Completed Date of admission: 08/28/17 00:38 Primary care physician: Benjamin Thayer MD Consults: 08/28/17 00:44 Consult to Podiatry [CONS] Stat Consulting Provider: [facility] Reason for Consult: septic ankle , consult to Dr. Benítez Call Completed: Yes Anticipated date of discharge: 08/31/17 - Patient Status Disposition: Home, Self-Care Condition: Good Functional capacity at discharge: independent ambulation Overall status at discharge: patient is progressing back to baseline - Discharge Instructions Instructions: Cellulitis (DC), Chronic Obstructive Pulmonary Disease (DC) Follow Up With: Benjamin Thayer MD [Primary Care Provider] - 09/10/17 1:15 pm Forms: ED Satisfaction Letter - Diet and Activity Activity: increase activity as tolerated, resume usual activities as tolerated Diet: advance to your usual diet Hospital course: Ms. Sun is a 51 year old female with past medical history of COPD, depression, anxiety and diabetes. She presented to the ED with complaints of left foot pain and swelling. Patient stated that symptoms started about 5 days prior to admission. Pain is worse with movement and weightbearing. She denied fever or any other symptoms. Patient was admitted for acute left foot cellulitis with unclear etiology. She was started on empiric IV Rocephin and IV vancomycin. Ultrasound Doppler is negative for DVT. CT of the left ankle shows extensive subcutaneous soft tissue edema of the distal and ankle and foot. Possible cellulitis with no abscess. Podiatry has evaluated the patient and advised to continue current management. Patient is also on IV morphine as needed for pain. Patient was then switched to ibuprofen as needed for pain and was also started on prednisone. Her uric acid level is normal. Patient was continued on DuoNeb breathing treatment and also Symbicort for COPD. She was on insulin sliding scale for diabetes. She has been advised to continue her regular home dose of Glucophage. Her left foot cellulitis has now improved significantly. Patient is now able to bear weight and able to ambulate well. She is tolerating oral diet well. She had no other acute events or complications during her stay. Patient was also continued on her home meds including Celexa and Remeron and trazodone. She was on heparin for DVT prophylaxis. Patient has been explained about her condition and plan of care in detail. She understood and agreed. No unanswered questions. Patient states she feels better and wants to go home today. She is being discharged in stable condition. She is being discharged Bactrim DS and has been advised to light duty when she returns to work. - Time Spent with Patient Total time spent providing and/or coordinating discharge services: Less than 30 minutes - Constitutional Vitals: Temp Pulse Resp BP Pulse Ox 97.5 F L 79 18 113/73 97 08/31/17 07:38 08/31/17 07:38 08/31/17 07:38 08/31/17 07:38 08/31/17 07:38 General appearance: Present: cooperative, A&O X 3, pleasant, no acute distress, answers questions appropriately - Head Head exam: Present: atraumatic - Eye Eye exam: Present: EOMI - ENT ENT exam: Present: mucous membranes moist - Respiratory Respiratory exam: Present: CTAB. Absent: rales, rhonchi, wheezes, tachypnea - Cardiovascular Cardiovascular exam: Present: RRR, +S1, +S2 - GI/Abdominal GI/Abdominal exam: Present: soft. Absent: distended, firm, guarding, tenderness - Extremities Exam Extremities exam: Present: radial pulses palpable and symmetrical. Absent: calf tenderness, cyanotic, pedal edema Additional comments: Left ankle and foot swelling and erythema have now improved. Minimal tenderness over her heel. Patient is now able to bear weight on the left foot. - Neurological Exam Neurological exam: Present: alert, oriented X3, no focal deficits. Absent: facial droop, speech deficit
[2017-08-31] MEDS ORDERED: FLUARIX QUAD 2017-18 36MOS UP/PF 0.5 ML SYRINGE IM ONE (11:09)
[2017-08-31 11:16] VITALS: BP 160/80
[2017-08-31] MEDS: Budesonide/Formoterol 160/4.5 MDI IH SCH (12:14)
[2017-08-31] MEDS ORDERED: Aminoglycoside Consult 1 EACH MC ONE (15:25)
[2017-09-01] MEDS ORDERED: cefTRIAXone 1,000 MG in Water for inj. (sterile) 10 ML IVP SCH (08:00)
== END 2017-08-31 15:26 | disposition home or self-care (01) ==
LOC: 3ANU 16:41 → EMEROO 16:41 → 3ANU 08-28 01:09
PROVIDERS: ADMIT Internal Medicine; ATTEND Internal Medicine

== ENCOUNTER 2017-09-10 14:16 | Observation (INO) ==
--- NOTE | 2017-09-10 14:23 | Emergency Department Note ---
Disposition Clinical Impression: Acute exacerbation of chronic obstructive pulmonary disease (COPD), Allergic reaction Disposition: Admitted As Inpatient Condition: Good General Adult HPI - General Chief complaint: ED Shortness of Breath/Dyspnea Stated complaint: SOB, anxiety, allergic reaction Time Seen by Provider: 09/10/17 14:20 - Related Data Home Medications Medication Instructions Recorded Confirmed Citalopram Hydrobromide [Celexa] 40 mg PO 2100 02/14/16 09/10/17 traZODone [TraZODone] 50 - 100 mg PO HS #0 02/14/16 09/10/17 Metformin HCl [Metformin HCl ER] 500 mg PO QPM 03/27/17 09/10/17 Mirtazapine [Remeron] 30 mg PO HS 03/27/17 09/10/17 ALPRAZolam [Xanax 0.5 MG Tablet] 0.5 mg PO BID 08/28/17 09/10/17 Albuterol Sulfate [Albuterol 2 puff IH Q4HR PRN 08/28/17 09/10/17 Inhaler] Budesonide/Formoterol 160/4.5 1 puff IH BIDR 08/28/17 09/10/17 [Symbicort 160/4.5] Ipratropium/Albuterol Neb [Duoneb] 3 ml IH Q6HR PRN 08/28/17 09/10/17 Naproxen Sodium [Aleve] 220 mg PO Q12H PRN 09/10/17 09/10/17 Allergies Allergy/AdvReac Type Severity Reaction Status Date / Time prednisone Allergy Redness of Verified 09/10/17 14:20 Skin sulfamethoxazole AdvReac Rash Verified 09/10/17 16:25 [From Bactrim] trimethoprim [From Bactrim] AdvReac Rash Verified 09/10/17 16:25 Past Medical History - Past Medical History Medical history: Reports: COPD, diabetes, other Surgical history: Reports: appendectomy, Psychiatric history: Reports: anxiety, depression - Social History Smoking Status: Former smoker Smokeless Tobacco Status: No Alcohol use: Reports: none Drug use: Reports: none Course Vital Signs Temperature 98.8 F 09/10/17 14:20 Pulse Rate 117 09/10/17 14:20 Respiratory Rate 18 09/10/17 14:20 Blood Pressure 105/81 09/10/17 14:20 O2 Sat by Pulse Oximetry 95 09/10/17 14:20 Temperature 97.6 F 09/11/17 11:10 Pulse Rate 81 09/11/17 11:10 Respiratory Rate 15 09/11/17 11:10 Blood Pressure 110/73 09/11/17 11:10 O2 Sat by Pulse Oximetry 98 09/11/17 11:10 Oxygen Delivery Oxygen Delivery Nasal Cannula Medical Decision Making - Lab Data Result diagrams: 09/11/17 05:43 09/11/17 05:43 Lab Results 09/10/17 09/10/17 09/10/17 Range/Units 16:25 16:25 16:25 WBC 2.8 L (4.3-11.1) K/mcL RBC 3.96 (3.82-4.97) M/mcL Hgb 11.7 (11.5-15.4) g/dL Hct 36.9 (35.3-44.9) % MCV 93.2 (83.0-100.0) fL MCH 29.5 (28.0-33.3) pg MCHC 31.7 (31.6-35.5) g/dL RDW 12.1 (11.5-14.5) % Plt Count 139 L (140-400) K/mcL MPV 10.3 (9.4-12.4) fL Immature Gran % 0.4 (0-4) % Seg Neutrophils % 85.3 % Lymphocytes % 7.1 % Monocytes % 4.3 % Eosinophils % 2.5 % Basophils % 0.4 % Neutrophils # 2.4 (1.6-8.9) K/mcL Lymphocytes # 0.2 L (0.6-4.6) K/mcL Monocytes # 0.1 (0.0-1.3) K/mcL Eosinophils # 0.1 (0.0-0.6) K/mcL Basophils # 0.0 (0.0-0.2) K/mcL Platelet Estimate Slight Decrease L (Normal) Sodium 136 (136-145) mEq/L Potassium 3.9 (3.5-4.5) mEq/L Chloride 99 (98-109) mEq/L Carbon Dioxide 27 (19-29) mEq/L BUN 8 (7-20) mg/dL Creatinine 0.64 (0.57-1.11) mg/dL Est GFR ( Amer) > 60 (> 60) Est GFR (Non-Af Amer) > 60 (> 60) BUN/Creatinine Ratio 13 (6-26) Glucose 106 H (70-99) mg/dL Calculated Osmolality 281 (280-300) Lactic Acid 0.9 (0.5-2.2) mmol/L Calcium 8.2 L (8.6-10.8) mg/dL Attestation Statement - Attestation Attestation: I examined this patient and my medical decision-making was reviewed with the Resident Physician. I agree with the documented findings, disposition and treatment plan as described except to the extent set forth below. Face to face time provided Patient arrives by EMS complaining of dyspnea. She has a history of intermittently oxygen dependent COPD. She thinks she might be having a reaction to prednisone or Bactrim. She has erythema to her face without stridor
[2017-09-10] MEDS ORDERED: Dexamethasone 4 MG/ML VIAL IVP ONE (14:24)
[2017-09-10] MEDS ORDERED: Famotidine 20 MG/2 ML VIAL IVP ONE (14:25)
[2017-09-10] MEDS ORDERED: Ipratropium/Albuterol Neb 3 ML IH ONE (14:28)
--- NOTE | 2017-09-10 14:40 | Emergency Department Note ---
Disposition Clinical Impression: Acute exacerbation of chronic obstructive pulmonary disease (COPD), Allergic reaction Disposition: Admitted As Inpatient Condition: Good Referrals: Benjamin Thayer MD [Primary Care Provider] - Forms: ED Satisfaction Letter Time of Disposition: 18:34 General Adult HPI - General Chief complaint: ED Shortness of Breath/Dyspnea Stated complaint: SOB, anxiety, allergic reaction Time Seen by Provider: 09/10/17 14:20 Source: EMS Nursing Notes Reviewed: Yes Vital Signs Reviewed: Yes - History of Present Illness HPI Narrative: Mrs. Sun, a 51yo female, presents from home for evaluation of a pruritic rash and dyspnea. 2 days ago, began PO prednisone. She is also on bactrim; 2 days left in the 5 day course. Patient correlates her symptoms as beginning just after first dose prednisone. ROS: Pos: dyspnea consistent with her chronic dyspena. Prurutic rash. Neg: chest pain, palpitation, cough, fever, chills, nausea, vomiting, abdominal pain PMH: COPD with 2L NC PRN O2. No hx PE, DVT, CAD. Pain Scale: 2 - Related Data Home Medications Medication Instructions Recorded Confirmed Citalopram Hydrobromide [Celexa] 40 mg PO 2100 02/14/16 09/10/17 traZODone [TraZODone] 50 - 100 mg PO HS #0 02/14/16 09/10/17 Metformin HCl [Metformin HCl ER] 500 mg PO QPM 03/27/17 09/10/17 Mirtazapine [Remeron] 30 mg PO HS 03/27/17 09/10/17 ALPRAZolam [Xanax 0.5 MG Tablet] 0.5 mg PO BID 08/28/17 09/10/17 Albuterol Sulfate [Albuterol 2 puff IH Q4HR PRN 08/28/17 09/10/17 Inhaler] Budesonide/Formoterol 160/4.5 1 puff IH BIDR 08/28/17 09/10/17 [Symbicort 160/4.5] Ipratropium/Albuterol Neb [Duoneb] 3 ml IH Q6HR PRN 08/28/17 09/10/17 Naproxen Sodium [Aleve] 220 mg PO Q12H PRN 09/10/17 09/10/17 Allergies Allergy/AdvReac Type Severity Reaction Status Date / Time prednisone Allergy Redness of Verified 09/10/17 14:20 Skin sulfamethoxazole AdvReac Rash Verified 09/10/17 16:25 [From Bactrim] trimethoprim [From Bactrim] AdvReac Rash Verified 09/10/17 16:25 All systems ED: reviewed and negative except as stated. Review of Systems: As Per HPI Past Medical History - Past Medical History Medical history: Reports: COPD, diabetes, other Surgical history: Reports: appendectomy, Psychiatric history: Reports: anxiety, depression - Social History Smoking Status: Former smoker Smokeless Tobacco Status: No Alcohol use: Reports: none Drug use: Reports: none Physical Exam Vital Signs Reviewed General: Patient is alert, oriented, and in no acute distress. HEENT: No facial asymmetry. Head is normocephalic and atraumatic. PERRLA, EOMI. Nasal turbinates moist and pink. Posterior pharynx without exudates or cobblestoning. Trachea midline, no palpable thyroid nodules, no thyromegaly. Cardiovascular: Heart regular rate and rhythm without clicks, rubs, gallops, or murmurs. No JVD. PMI nondisplaced. Respiratory: Symmetric chest rise with poor respiratory effort. Prolonged expiratory phase. Decreased air movement with end expiratory wheeze; no crackles or rhonchi. Abdomen: Bowel sounds present normoactive -4 quadrants. Abdomen is soft, nondistended, and nontender. No organomegaly noted. Musculoskeletal: Muscle strength 5/5 and symmetric bilaterally in upper and lower extremities. DTRs 2/4 and symmetric bilaterally in upper and lower extremities. Neuro: Cranial nerves II through XII without deficit. Sensation light touch intact. Psych: Patient's affect is appropriate for situation. - General General appearance: alert, anxious Course Course Narrative: Patient's dyspnea improved with triple therapy of DuoNeb's. Patient's rash improved with dexamethasone, Benadryl, Pepcid. The still remains present and pruritic. Despite DuoNeb's, patient still has increased work of breathing. She is wheezing more inferring that the duo nebs did help open up her airways. She is saturating 91-92% on her baseline oxygen while at rest in bed. I discussed this with the patient and she agrees for admission for acute exacerbation of COPD. I discussed the patient with the admitting hospitalist, Dr. Hunter, who agrees to accept the patient for continued workup and evaluation of exacerbation of COPD as well as allergic reaction. Vital Signs Temperature 98.8 F 09/10/17 14:20 Pulse Rate 117 09/10/17 14:20 Respiratory Rate 18 09/10/17 14:20 Blood Pressure 105/81 09/10/17 14:20 O2 Sat by Pulse Oximetry 95 09/10/17 14:20 Temperature 98.8 F 09/10/17 14:20 Pulse Rate 102 09/10/17 17:38 Respiratory Rate 20 09/10/17 17:38 Blood Pressure 98/66 09/10/17 17:38 O2 Sat by Pulse Oximetry 94 09/10/17 17:38 Oxygen Delivery Oxygen Delivery Nasal Cannula Medical Decision Making - Lab Data Result diagrams: 09/10/17 16:25 09/10/17 16:25 Lab Results 09/10/17 09/10/17 09/10/17 Range/Units 16:25 16:25 16:25 WBC 2.8 L (4.3-11.1) K/mcL RBC 3.96 (3.82-4.97) M/mcL Hgb 11.7 (11.5-15.4) g/dL Hct 36.9 (35.3-44.9) % MCV 93.2 (83.0-100.0) fL MCH 29.5 (28.0-33.3) pg MCHC 31.7 (31.6-35.5) g/dL RDW 12.1 (11.5-14.5) % Plt Count 139 L (140-400) K/mcL MPV 10.3 (9.4-12.4) fL Immature Gran % 0.4 (0-4) % Seg Neutrophils % 85.3 % Lymphocytes % 7.1 % Monocytes % 4.3 % Eosinophils % 2.5 % Basophils % 0.4 % Neutrophils # 2.4 (1.6-8.9) K/mcL Lymphocytes # 0.2 L (0.6-4.6) K/mcL Monocytes # 0.1 (0.0-1.3) K/mcL Eosinophils # 0.1 (0.0-0.6) K/mcL Basophils # 0.0 (0.0-0.2) K/mcL Platelet Estimate Slight Decrease L (Normal) Sodium 136 (136-145) mEq/L Potassium 3.9 (3.5-4.5) mEq/L Chloride 99 (98-109) mEq/L Carbon Dioxide 27 (19-29) mEq/L BUN 8 (7-20) mg/dL Creatinine 0.64 (0.57-1.11) mg/dL Est GFR ( Amer) > 60 (> 60) Est GFR (Non-Af Amer) > 60 (> 60) BUN/Creatinine Ratio 13 (6-26) Glucose 106 H (70-99) mg/dL Calculated Osmolality 281 (280-300) Lactic Acid 0.9 (0.5-2.2) mmol/L Calcium 8.2 L (8.6-10.8) mg/dL
[2017-09-10] MEDS ORDERED: Ondansetron 4 MG/2 ML VIAL IVP ONE (15:56)
[2017-09-10] MEDS ORDERED: *HR* Morphine 2 MG/ML SYRINGE IVP ONE (15:56)
[2017-09-10 16:36] LABS: Basophils % 0.4 %; Eosinophils # 0.1 K/mcL (0.0-0.6); Eosinophils % 2.5 %; Hematocrit 36.9 % (35.3-44.9); Hemoglobin 11.7 g/dL (11.5-15.4); Immature Granulocytes % 0.4 % (0-4); Lymphocytes # 0.2 K/mcL (0.6-4.6); Lymphocytes % 7.1 %; Mean Corpuscular HGB Conc 31.7 g/dL (31.6-35.5); Mean Corpuscular Hemoglobin 29.5 pg (28.0-33.3); Mean Corpuscular Volume 93.2 fL (83.0-100.0); Mean Platelet Volume 10.3 fL (9.4-12.4); Monocytes # 0.1 K/mcL (0.0-1.3); Monocytes % 4.3 %; Neutrophils # 2.4 K/mcL (1.6-8.9); Platelet Count 139 K/mcL (140-400); Red Blood Count 3.96 M/mcL (3.82-4.97); Red Cell Distribution Width 12.1 % (11.5-14.5); Segmented Neutrophils % 85.3 %
[2017-09-10 16:56] LABS: BUN/Creatinine Ratio 13 (6-26); Blood Urea Nitrogen 8 mg/dL (7-20); Calcium 8.2 mg/dL (8.6-10.8); Carbon Dioxide 27 mEq/L (19-29); Chloride 99 mEq/L (98-109); Glucose 106 mg/dL (70-99); Osmolality,Calculated 281 (280-300); Potassium 3.9 mEq/L (3.5-4.5); Sodium 136 mEq/L (136-145); eGFR For African Americans > 60 (> 60); eGFR For Non-African Americans > 60 (> 60)
[2017-09-10 17:02] LABS: Platelet Estimate Slight Decrease (Normal)
[2017-09-10] MEDS ORDERED: Ipratropium/Albuterol Neb 3 ML IH PRN (18:14)
[2017-09-10] MEDS ORDERED: *HR* Dextrose 50 % in Water (Syg) 50 ML SYRINGE IVP PRN (18:22)
[2017-09-10] MEDS ORDERED: Dextrose Gel 15 GM PO PRN ×2 (18:22)
[2017-09-10] MEDS ORDERED: Ondansetron 4 MG/2 ML VIAL IVP PRN (18:22)
[2017-09-10] MEDS ORDERED: Naloxone 0.4 MG/ML INJ IVP PRN (18:22)
[2017-09-10] MEDS ORDERED: D5% in Water 1,000 ML IVC PRN (18:22)
--- NOTE | 2017-09-10 18:53 | Internal Med History&Physical ---
<Diego Prather J - Last Filed: 09/10/17 21:06> Date of Encounter: 09/10/17 Time of Encounter: 18:51 Assessment and Plan (1) Allergic drug rash Current visit: Yes Status: Acute Patient presented today with a macular drug rash on her anterior and posterior trunk as well as bilateral lower extremities extending down to the feet. Initially, she had angioedema upon presentation with swollen lips. Lab work revealed leukopenia with a white count of 2.8 and thrombocytopenia with platelets of 139. She was recently sent home on Bactrim. Given clinical presentation and the patient's labs it appears she has had an allergic reaction to Bactrim. Patient' s rash has dramatically improved since initial presentation. Benadryl 50 mg IVP Q6hrs Pepcid 20 mg IVP twice a day Consider an additional dose of dexamethasone if rash returns or worsens (2) Acute exacerbation of chronic obstructive pulmonary disease (COPD) Current visit: Yes Status: Acute Remains dyspneic but has improved since nebulizer treatment. No wheezes upon auscultation but still diminished. On 2lNC, no respiratory distress. DuoNeb every 4 hours scheduled, albuterol every 2 hours when necessary (3) Diabetes Current visit: Yes Status: Chronic H/o DM II, glucose per metabolic panel is 106. Takes metformin at home Hold metformin; start LSSIC, AC/HS and diabetic diet Qualifiers: Diabetes mellitus type: type 2 Diabetes mellitus complication status: without complication Diabetes mellitus prison insulin use: without community health navigator use Qualified Code(s): E11.9 - Type 2 diabetes mellitus without complications (4) DVT prophylaxis Current visit: Yes Status: Acute EPCD's mechanical prophylaxis Internal Medicine - H&P: HPI Chief complaint: Allergic drug reaction, dyspnea Admitted From: Home Plans for Post Hospital Care: Home History of present illness: Ms. Sun is a 51 year old female with a past medical history of COPD, diabetes presents today with a pruritic rash and dyspnea. She reports that she was recently discharged on oral prednisone following a recent hospital admission which included cellulitis and an acute exacerbation of COPD. Additionally, she was given Bactrim for Lt foot/ankle cellulitis. She reports that shortly after her first dose of oral prednisone and she began experiencing a pruritic rash on her trunk extending away down to her knees. Additionally she notes that she had some angioedema reporting that her lips were swollen. She reports that today she began feeling short of breath. She denies any chills , fatigue, chest pain, throat or tongue swelling. Chest x-ray negative. High suspicion for allergic reaction to sulfa drug Past Med Surg Social Fam HX - Past Medical History Medical history: COPD, diabetes, other Psychiatric history: anxiety, depression - Past Surgical History Surgical History: appendectomy, - Social History Smoking Status: Former smoker Smokeless Tobacco Status: No Alcohol use: none Drug use: none - Family History Mother Living Status: Hx Family Respiratory Disorders: Yes Hx Family Endocrine Disorder: Yes Hx Family Neurologic Disorders: Yes (stroke) Father Living Status: Hx Family Cardiac Disorders: Yes ([place]) Hx Family Cancer: Yes Hx Family Endocrine Disorder: Yes (diabetes) Internal Medicine - H&P: Meds Citalopram Hydrobromide [Celexa] 40 mg PO 2100 02/14/16 [History] traZODone [TraZODone] 50 - 100 mg PO HS #0 02/14/16 [History] Metformin HCl [Metformin HCl ER] 500 mg PO QPM 03/27/17 [History] Mirtazapine [Remeron] 30 mg PO HS 03/27/17 [History] ALPRAZolam [Xanax 0.5 MG Tablet] 0.5 mg PO BID 08/28/17 [History] Albuterol Sulfate [Albuterol Inhaler] 2 puff IH Q4HR PRN 08/28/17 [History] Budesonide/Formoterol 160/4.5 [Symbicort 160/4.5] 1 puff IH BIDR 08/28/17 [ History] Ipratropium/Albuterol Neb [Duoneb] 3 ml IH Q6HR PRN 08/28/17 [History] Naproxen Sodium [Aleve] 220 mg PO Q12H PRN 09/10/17 [History] 3 Allergy/AdvReac Type Severity Reaction Status Date / Time prednisone Allergy Redness of Verified 09/10/17 14:20 Skin sulfamethoxazole AdvReac Rash Verified 09/10/17 16:25 [From Bactrim] trimethoprim [From Bactrim] AdvReac Rash Verified 09/10/17 16:25 All Systems PM: A 10-system review of systems was performed and is negative for pertinent findings except as documented above in the HPI. - Constitutional Constitutional: no chills, no excessive sweating, no fever(s) - EENT Nose, mouth and throat: lip swelling, no facial pain, no hoarseness, no mouth lesions, no mouth pain, no sore throat, no throat swelling, no tongue swelling - Cardiovascular Cardiovascular ROS IM: dyspnea, no chest pain, no dyspnea on exertion, no edema , no irregular heart rhythm, no lightheadedness, no orthopnea, no palpitations, no paroxysmal nocturnal dyspnea - Respiratory Respiratory: dyspnea, wheezing, no cough, no hemoptysis, no dyspnea on exertion , no stridor, no pain on inspiration, no chest congestion, no excessive phlegm production, no change in phlegm color, no pain with cough - Gastrointestinal Gastrointestinal: no abdominal pain, no diarrhea, no nausea, no vomiting - Genitourinary Genitourinary: no dysuria, no flank pain - Integumentary Integumentary IM: as per HPI, pruritus, rash, no skin ulcer, no sores - Constitutional Vitals: Temp Pulse Resp BP Pulse Ox 98.8 F 101 20 100/59 100 09/10/17 14:20 09/10/17 18:37 09/10/17 18:37 09/10/17 18:37 09/10/17 18:37 General appearance: Present: cooperative, mild distress, A&O X 3, answers questions appropriately - Head Head exam: Present: atraumatic, normocephalic - Eye Eye exam: Present: PERRL, conjuntiva pink, sclera anicteric Pupils: Present: PERRL - Neck Neck exam general surgery: Present: supple, trachea midline. Absent: lymphadenopathy - Respiratory Respiratory exam: Present: decreased breath sounds, CTAB, prolonged expiratory phase, tachypnea. Absent: accessory muscle use, rales, respiratory distress, stridor, wheezes - Cardiovascular Cardiovascular exam: Present: RRR, +S1, +S2. Absent: diastolic murmur, gallop, irregular rhythm, rubs, systolic murmur, tachycardia - GI/Abdominal GI/Abdominal exam: Present: normal bowel sounds, soft, no peritoneal signs. Absent: distended, splenomegaly, tenderness - Skin Skin exam: Present: dry, rash, warm. Absent: diaphoretic, petechiae, urticaria - Expanded Skin Exam Type of lesion: Present: rash Distribution of rash: Present: abdomen, back, chest, RLE, LLE Description of rash: Present: confluent, macular. Absent: tenderness Internal Med - H&P Results - Labs CBC & Chem 7: 09/10/17 16:25 09/10/17 16:25 Labs: Short CBC 09/10/17 Range/Units 16:25 WBC 2.8 L (4.3-11.1) K/mcL Hgb 11.7 (11.5-15.4) g/dL Hct 36.9 (35.3-44.9) % Plt Count 139 L (140-400) K/mcL Neutrophils # 2.4 (1.6-8.9) K/mcL BMP 09/10/17 16:25 Sodium 136 Potassium 3.9 Chloride 99 Carbon Dioxide 27 BUN 8 Creatinine 0.64 Glucose 106 H Calcium 8.2 L - Impressions ITS Impressions Chest X-Ray 09/10/17 15:10 IMPRESSION: No acute process. D/ / Dion Mills MD / Dion Mills MD Interpreting Provider: Dion Mills MD - Diagnostic Studies Chest x-ray Status: image reviewed by me Additional comments: no acute pulmonary process <Mohit Das - Last Filed: 09/11/17 01:40> Date of Encounter: 09/10/17 Time of Encounter: 19:40 - Constitutional Vitals: Temp Pulse Resp BP Pulse Ox 97.9 F 102 20 145/83 95 09/10/17 23:40 09/10/17 23:40 09/10/17 23:40 09/10/17 23:40 09/10/17 23:40 General appearance: Present: cooperative, A&O X 3, pleasant, no acute distress - Eye Eye exam: Present: EOMI, normal appearance, PERRL. Absent: scleral icterus Additional comments: no scleral or conjunctival inflammation, injection, or ulceration - ENT ENT exam: Present: mucous membranes moist, normal exam Additional comments: no mucosal involvement of nares and/or mouth - Neck Neck exam general surgery: Present: supple - Respiratory Respiratory exam: Present: prolonged expiratory phase, wheezes (some scattered wheezes). Absent: accessory muscle use - Cardiovascular Cardiovascular exam: Present: RRR, +S1, +S2 - Skin Skin exam: Present: dry, rash (truncal rash with mild erythema and morbilliform type process -- improved per Diego Prather compared to his initial exam), warm Additional comments: no evidence of cellulitis on my exam Internal Med - H&P Results - Labs CBC & Chem 7: 09/10/17 16:25 09/10/17 16:25 - Attending Attestation I discussed the MAKAH, PMH, ROS, lab data, and exam findings with Diego Prather CNP. I then saw and examined patient independently as well. Diego came with me to see and examine patient again and, on repeat exam, her rash has improved immensely. She has no evidence of mucosal involvement to suggest Morley Mulugeta Syndrome. I also question her Prednisone allergy. She received Decadron in ER and has had no reaction. I also see no evidence of cellulitis on her leg/foot. I recommend stopping all antibiotics, continuing Benadryl and Pepcid tonight, continuing aerosols PRN, and reassessing her tomorrow. Other than my comments above and noted exam findings, I agree with Diego's assessment and plan.
[2017-09-10] MEDS ORDERED: Piperacillin/Tazobactam 3.375 GM in D5% in Water 50 ML IVPB SCH (20:00)
[2017-09-10] MEDS ORDERED: Piperacillin/Tazobactam 3.375 GM in D5% in Water (Mini-Bag+) 100 ML IVPB SCH (20:00)
[2017-09-10] MEDS ORDERED: Vancomycin 750 MG in D5% in Water 250 ML IVPB ONE (20:00)
[2017-09-10] MEDS ORDERED: Albuterol 2.5 MG/3 ML NEBULIZER IH PRN (20:33)
[2017-09-10 20:48] LABS: INR 1.1; Prothrombin Time 11.8 Seconds (9.4-12.1)
[2017-09-10] MEDS: Mirtazapine 15 MG TABLET PO SCH (21:29)
[2017-09-10] MEDS: Insulin LISPRO 300 UNITS/3 ML VIAL SQ SCH (21:29)
[2017-09-10] MEDS: ALPRAZolam 0.5 MG TABLET PO SCH (21:29)
[2017-09-10] MEDS: traZODone 50 MG TABLET PO SCH (21:30)
[2017-09-10] MEDS ORDERED: Budesonide/Formoterol 160/4.5 MDI IH SCH (22:00)
[2017-09-10] MEDS: Acetaminophen 325 MG TABLET PO PRN (22:51)
[2017-09-10] MEDS: Ipratropium/Albuterol Neb 3 ML IH SCH (23:31)
[2017-09-11] MEDS: Ipratropium/Albuterol Neb 3 ML IH SCH ×6 (03:53→23:41)
[2017-09-11 05:54] LABS: Basophils % 0.5 %; Mean Corpuscular HGB Conc 32.2 g/dL (31.6-35.5)
[2017-09-11 05:55] LABS: Hematocrit 37.3 % (35.3-44.9); Immature Granulocytes % 0.5 % (0-4); Lymphocytes # 0.4 K/mcL (0.6-4.6); Lymphocytes % 18.7 %; Mean Corpuscular Hemoglobin 30.2 pg (28.0-33.3); Mean Corpuscular Volume 93.7 fL (83.0-100.0); Mean Platelet Volume 10.3 fL (9.4-12.4); Monocytes # 0.1 K/mcL (0.0-1.3); Monocytes % 7.3 %; Neutrophils # 1.4 K/mcL (1.6-8.9); Platelet Count 149 K/mcL (140-400); Red Blood Count 3.98 M/mcL (3.82-4.97)
[2017-09-11] MEDS ORDERED: Famotidine 20 MG/2 ML VIAL IVP SCH (06:00)
[2017-09-11 06:12] LABS: Alanine Aminotransferase 14 Units/L (0-55); Albumin 2.9 g/dL (3.5-5.0); Albumin/Globulin Ratio 0.9 (1.1-2.2); Alkaline Phosphatase 60 Units/L (38-126); Aspartate Amino Transferase 23 Units/L (5-34); BUN/Creatinine Ratio 17 (6-26); Bilirubin,Total < 0.2 mg/dL (0.2-1.2); Blood Urea Nitrogen 12 mg/dL (7-20); Calcium 8.8 mg/dL (8.6-10.8); Carbon Dioxide 32 mEq/L (19-29); Chloride 102 mEq/L (98-109); Globulin 3.3 g/dL (2.4-3.5); Glucose 242 mg/dL (70-99); Osmolality,Calculated 300 (280-300); Potassium 4.6 mEq/L (3.5-4.5); Sodium 141 mEq/L (136-145); Total Protein 6.2 g/dL (6.0-8.3); eGFR For African Americans > 60 (> 60); eGFR For Non-African Americans > 60 (> 60)
[2017-09-11 06:31] LABS: Platelet Estimate Normal (Normal)
[2017-09-11] MEDS: ALPRAZolam 0.5 MG TABLET PO SCH ×2 (08:36→20:49)
[2017-09-11] MEDS: Insulin LISPRO 300 UNITS/3 ML VIAL SQ SCH ×4 (08:36→20:57)
--- NOTE | 2017-09-11 18:15 | Internal Med Progress Note ---
Date of Encounter: 09/11/17 Time of Encounter: 15:15 - Assessment and plan (1) Acute exacerbation of chronic obstructive airways disease Current Visit: Yes Status: Acute Assessment and plan: Acute exacerbation of COPD. Patient has diminished lung sounds throughout posterior lugo with minimal aeration. Patient is wearing 2 L of oxygen, she normally only wears oxygen at night. She states that she has been out of her inhalers for one month due to not being able to afford them. Continue oxygen, titrate as needed to maintain sats greater than 92%. Continue albuterol nebulizers when necessary continue duo nebs scheduled Continue Symbicort Patient reports allergy to prednisone, redness of skin. We will hold off on IV steroids at this time. Chest X-Ray 09/10/17 15:10 IMPRESSION: No acute process. D/ / Dion Mills MD / Doin Mills MD Interpreting Provider: Dion Mills MD (2) Acute and chronic respiratory failure ([id number]) Current Visit: Yes Status: Acute Assessment and plan: Patiently normally only wears oxygen at night. Currently she is requiring 2 L of oxygen [id number] to maintain her sats. Continue to titrate as needed to maintain sats greater than 92%, and continuous pulse ox. Qualifiers: Respiratory failure complication: hypoxia Qualified Code(s): J96.21 - Acute and chronic respiratory failure with hypoxia (3) Allergic drug rash Current Visit: Yes Status: Acute Assessment and plan: Patient with red drug rash, nonpruritic to body. She reports that she began having a rash after taking Augmentin for suspected left foot cellulitis. Patient is receiving Benadryl for itching and rash. Continue to monitor. - Time Spent With Patient less than 15 minutes - Subjective Interval history: Patient was seen and assessed at 1515 today. She is resting quietly in bed. All questions answered. She denies any chest pain, nausea, vomiting, diaphoresis, diarrhea, abdominal pain. She denies itching. She reports that she was recently treated with Augmentin for what was thought to be left foot cellulitis. She believes that this is the cause of her drug rash. She also presents for COPD and is requiring some oxygen. She normally wears O2 at night only. Lung sounds are diminished with decreased aeration throughout posterior P lugo. She reports that she has been out of her medications due to not being able to afford them for 1 month including Symbicort, pro-air, Celexa. - Constitutional Vitals: Temp Pulse Resp BP Pulse Ox 98.0 F 96 16 113/71 95 09/11/17 15:23 09/11/17 15:23 09/11/17 16:37 09/11/17 15:23 09/11/17 16:37 General appearance: Present: cooperative, A&O X 3, pleasant, no acute distress, answers questions appropriately - Head Head exam: Present: atraumatic, normal inspection, normocephalic - Eye Eye exam: Present: normal appearance, conjuntiva pink, sclera anicteric - Neck Neck exam general surgery: Present: supple, trachea midline. Absent: lymphadenopathy, tenderness - Respiratory Respiratory exam: Present: decreased breath sounds, CTAB. Absent: accessory muscle use, rales, respiratory distress, rhonchi, wheezes - Cardiovascular Cardiovascular exam: Present: RRR, +S1, +S2. Absent: diastolic murmur, gallop, rubs, systolic murmur - GI/Abdominal GI/Abdominal exam: Present: normal bowel sounds, soft. Absent: distended, hepatomegaly, tenderness - Extremities Exam Extremities exam: Present: normal capillary refill, normal inspection, warm, radial pulses palpable and symmetrical. Absent: calf tenderness, cyanotic, pedal edema - Neurological Exam Neurological exam: Present: alert, oriented X3, no focal deficits, strengths equal and symetr throughout. Absent: facial droop, speech deficit - Skin Skin exam: Present: dry, intact, rash, warm Internal Medicine: Result - Labs CBC & Chem 7: 09/11/17 14:36 09/11/17 05:43 Labs: Short CBC 09/11/17 09/11/17 Range/Units 05:43 14:36 WBC 1.9 L 3.0 L D (4.3-11.1) K/mcL Hgb 12.0 (11.5-15.4) g/dL Hct 37.3 (35.3-44.9) % Plt Count 149 (140-400) K/mcL Neutrophils # 1.4 L (1.6-8.9) K/mcL BMP 09/11/17 05:43 Sodium 141 Potassium 4.6 H Chloride 102 Carbon Dioxide 32 H BUN 12 Creatinine 0.71 Glucose 242 H Calcium 8.8 Liver Function 09/11/17 Range/Units 05:43 Total Bilirubin < 0.2 L (0.2-1.2) mg/dL AST 23 (5-34) Units/L ALT 14 (0-55) Units/L Alkaline Phosphatase 60 (38-126) Units/L Albumin 2.9 L (3.5-5.0) g/dL - ABG Interpretation ABG results: PT/INR, D-dimer PT 11.0 Seconds (9.4-12.1) 09/11/17 05:43 Consult Discharge Plan - Plan Referrals: Benjamin Thayer MD [Primary Care Provider] -
[2017-09-11] MEDS: Mirtazapine 15 MG TABLET PO SCH (20:48)
[2017-09-11] MEDS: traZODone 50 MG TABLET PO SCH (20:49)
[2017-09-11] MEDS: Famotidine 20 MG/2 ML VIAL IVP SCH (20:49)
[2017-09-11] MEDS: Acetaminophen 325 MG TABLET PO PRN (22:04)
[2017-09-12] MEDS: Ipratropium/Albuterol Neb 3 ML IH SCH ×4 (03:43→16:04)
[2017-09-12 05:07] LABS: Hematocrit 34.9 % (35.3-44.9); Hemoglobin 10.9 g/dL (11.5-15.4); Mean Corpuscular HGB Conc 31.2 g/dL (31.6-35.5); Mean Corpuscular Hemoglobin 29.8 pg (28.0-33.3); Mean Corpuscular Volume 95.4 fL (83.0-100.0); Mean Platelet Volume 10.9 fL (9.4-12.4); Platelet Count 154 K/mcL (140-400); Red Blood Count 3.66 M/mcL (3.82-4.97); Red Cell Distribution Width 12.2 % (11.5-14.5)
[2017-09-12 05:09] LABS: BUN/Creatinine Ratio 20 (6-26); Blood Urea Nitrogen 13 mg/dL (7-20); Calcium 8.7 mg/dL (8.6-10.8); Carbon Dioxide 33 mEq/L (19-29); Chloride 102 mEq/L (98-109); Glucose 193 mg/dL (70-99); Osmolality,Calculated 297 (280-300); Potassium 3.9 mEq/L (3.5-4.5); Sodium 141 mEq/L (136-145); eGFR For African Americans > 60 (> 60); eGFR For Non-African Americans > 60 (> 60)
[2017-09-12] MEDS: Famotidine 20 MG/2 ML VIAL IVP SCH (05:09)
[2017-09-12] MEDS: Acetaminophen 325 MG TABLET PO PRN (05:15)
[2017-09-12 06:17] LABS: Lymphocytes # 1.3 K/mcL (0.6-4.6); Monocytes # 0.5 K/mcL (0.0-1.3); Neutrophils # 3.1 K/mcL (1.6-8.9); Platelet Estimate Normal (Normal)
[2017-09-12 07:04] VITALS: BP 125/78
[2017-09-12] MEDS: Insulin LISPRO 300 UNITS/3 ML VIAL SQ SCH (08:16)
[2017-09-12] MEDS: ALPRAZolam 0.5 MG TABLET PO SCH (09:03)
--- NOTE | 2017-09-12 10:40 | Discharge Summary ---
Date of Encounter: 09/12/17 Time of Encounter: 08:55 - Discharge Diagnosis (1) Acute exacerbation of chronic obstructive airways disease Priority: Primary Status: Acute Comments: Acute exacerbation of COPD. patient reports recent admission for cellulitis to her left foot. She was placed on Bactrim, as well as prednisone. She reports that shortly after her first dose of oral prednisone at home, she began experiencing a rash and shortness of breath. She also reports some mild angioedema and her lips were swollen. Patient has diminished lung sounds throughout posterior lugo with improved aeration, no wheezing, rales, rhonchi , or respiratory distress. Patient had been requiring 2 L of oxygen, she normally only wears oxygen at night. Today she is not wearing any oxygen or all during assessment. She states that she has been out of her inhalers for one month due to not being able to afford them. I have called in inhalers per her request to [facility] pharmacy. She does not appear to be any distress at this time. She speaks easily in full sentences and denies RODRIGUEZ. She has remained afebrile, no leukocytosis white count 4.8 today. No tachycardia and no tachypnea. Patient was seen by social services and financial economist to apply for Medicaid so she will be able to better afford her medications. Chest X-Ray 09/10/17 15:10 IMPRESSION: No acute process. D/ / Dion Mills MD / Dion Mills MD Interpreting Provider: Dion Mills MD (2) Acute and chronic respiratory failure ([id number]) Priority: Secondary Status: Acute Comments: Patiently normally only wears oxygen at night. During admission she was requiring 2 L during the day. She has returned to her baseline requirement is requiring no supple oxygen this morning. Clinically unable at this admission to determine if she is hypoxic with or without hypercapnia. Continue oxygen at home as needed. Qualifiers: Respiratory failure complication: hypoxia Qualified Code(s): J96.21 - Acute and chronic respiratory failure with hypoxia (3) Allergic drug rash Priority: Secondary Status: Acute Comments: Patient presented with a macular drug rash on her anterior and posterior trunk as well as bilateral lower extremities extending down to the feet. Initially, she had angioedema upon presentation with swollen lips. Lab work revealed leukopenia with a white count of 2.8 and thrombocytopenia with platelets of 139. On discharge white count has returned to 4.8, platelets have returned to 154, both within normal limits. She was recently sent home on Bactrim for left foot cellulitis. Given clinical presentation and the patient's labs it appears she has had an allergic reaction to Bactrim. Patient's rash has dramatically improved since initial presentation. Pt will be sent home with rx for Benadryl and Pepcid. Rash appears to be improving and pt reports less itching and burning than on admission. - Discharge Medications Prescriptions: Albuterol Sulfate [Albuterol Inhaler] 2 puff IH Q4HR PRN #1 inhaler PRN Reason: Shortness Of Breath DiphenhydraMINE [Benadryl] 25 mg PO Q6HR #40 capsule Ipratropium/Albuterol Neb [Duoneb] 3 ml IH Q6HR PRN #100 inhsol PRN Reason: Shortness Of Breath Famotidine [Pepcid] 20 mg PO BID #20 tablet Home Medications: Citalopram Hydrobromide [Celexa] 40 mg PO 2100 02/14/16 [History] traZODone [TraZODone] 50 - 100 mg PO HS #0 02/14/16 [History] Metformin HCl [Metformin HCl ER] 500 mg PO QPM 03/27/17 [History] Mirtazapine [Remeron] 30 mg PO HS 03/27/17 [History] ALPRAZolam [Xanax 0.5 MG Tablet] 0.5 mg PO BID 08/28/17 [History] Budesonide/Formoterol 160/4.5 [Symbicort 160/4.5] 1 puff IH BIDR 08/28/17 [ History] Naproxen Sodium [Aleve] 220 mg PO Q12H PRN 09/10/17 [History] Albuterol Sulfate [Albuterol Inhaler] 2 puff IH Q4HR PRN #1 inhaler 09/12/17 [Rx ] DiphenhydraMINE [Benadryl] 25 mg PO Q6HR #40 capsule 09/12/17 [Rx] Famotidine [Pepcid] 20 mg PO BID #20 tablet 09/12/17 [Rx] Ipratropium/Albuterol Neb [Duoneb] 3 ml IH Q6HR PRN #100 inhsol 09/12/17 [Rx] Allergies/Adverse Reactions: 3 Allergy/AdvReac Type Severity Reaction Status Date / Time prednisone Allergy Redness of Verified 09/10/17 14:20 Skin sulfamethoxazole AdvReac Rash Verified 09/10/17 16:25 [From Bactrim] trimethoprim [From Bactrim] AdvReac Rash Verified 09/10/17 16:25 Date of admission: 09/10/17 18:53 Primary care physician: Benjamin Thayer MD Consults: 09/11/17 11:27 Consult to Power Lineman Technician [CONS] Routine Reason for SW Consult: Readmission Discharging clinician: Tianna Urena Anticipated date of discharge: 09/12/17 - Patient Status Disposition: Home, Self-Care Functional capacity at discharge: independent ambulation Overall status at discharge: patient is back to baseline - Discharge Instructions Follow Up With: Benjamin Thayer MD [Primary Care Provider] - Additional Instructions: Follow-up the primary care provider in the next 7-10 days for a follow-up visit. Return to the emergency department as needed for any other problems or concerns , or if your symptoms become worse. I have [facility] per your request. Take your other home medications as you normally would. Return to your normal activities and diet as tolerated. - Diet and Activity Activity: increase activity as tolerated Diet: advance to your usual diet Hospital course: Ms. Sun is a 51 year old female with PMH of COPD, chronic respiratory failure, who presented to the ED with an acute exacerbation of COPD with recent shortness of breath. Please see assessment and plan for hospital course. - Time Spent with Patient Total time spent providing and/or coordinating discharge services: Less than 30 minutes - Constitutional Vitals: Temp Pulse Resp BP Pulse Ox 97.9 F 88 16 125/78 99 09/12/17 07:01 09/12/17 07:01 09/12/17 07:56 09/12/17 07:01 09/12/17 09:04 General appearance: Present: cooperative, A&O X 3, pleasant, no acute distress, answers questions appropriately - Head Head exam: Present: atraumatic, normal inspection, normocephalic - Eye Eye exam: Present: normal appearance, PERRL, conjuntiva pink, sclera anicteric Pupils: Present: PERRL - Neck Neck exam general surgery: Present: normal inspection, supple, trachea midline. Absent: lymphadenopathy, tenderness - Respiratory Respiratory exam: Present: decreased breath sounds, CTAB. Absent: accessory muscle use, chest wall tenderness, rales, respiratory distress, rhonchi, wheezes - Cardiovascular Cardiovascular exam: Present: RRR, +S1, +S2. Absent: diastolic murmur, gallop, rubs, systolic murmur - GI/Abdominal GI/Abdominal exam: Present: normal bowel sounds, soft. Absent: distended, hepatomegaly, tenderness - Extremities Exam Extremities exam: Present: normal capillary refill, normal inspection, warm, radial pulses palpable and symmetrical. Absent: calf tenderness, cyanotic, pedal edema, tenderness - Neurological Exam Neurological exam: Present: alert, oriented X3, no focal deficits, strengths equal and symetr throughout. Absent: altered, facial droop, speech deficit - Skin Skin exam: Present: dry, intact, normal color, rash, warm
[2017-09-13 02:42] LABS: ABG Base Excess 8 mEq/L (-2 to 3); ABG HCO3 40 mEq/L (21-27); ABG Oxygen Saturation 97 % (95-98); ABG PCO2 96 mmHg (35-45); ABG PH 7.22 pH Units (7.32-7.45); ABG PO2 111 mmHg (85-104); ABG TCO2 43 mEq/L (20-26)
== END 2017-09-12 16:49 | disposition home or self-care (01) ==
LOC: EMEROO 14:16 → 3BNU 14:16
PROVIDERS: ADMIT Registered Nurse; ATTEND Registered Nurse

== ENCOUNTER 2017-09-13 02:03 | Inpatient (IN) ==
[2017-09-13] MEDS ORDERED: methylPREDNISolone 125 MG/2 ML VIAL IVP ONE (02:19)
[2017-09-13] MEDS ORDERED: Ipratropium/Albuterol Neb 3 ML IH ONE (02:19)
[2017-09-13 02:25] LABS: Basophils # 0.1 K/mcL (0.0-0.2); Basophils % 0.5 %; Eosinophils # 0.1 K/mcL (0.0-0.6); Hematocrit 39.9 % (35.3-44.9); Hemoglobin 12.3 g/dL (11.5-15.4); Immature Granulocytes % 0.3 % (0-4); Lymphocytes # 1.7 K/mcL (0.6-4.6); Lymphocytes % 18.6 %; Mean Corpuscular HGB Conc 30.8 g/dL (31.6-35.5); Mean Corpuscular Hemoglobin 30.1 pg (28.0-33.3); Mean Corpuscular Volume 97.6 fL (83.0-100.0); Mean Platelet Volume 10.1 fL (9.4-12.4); Monocytes # 1.2 K/mcL (0.0-1.3); Monocytes % 13.6 %; Platelet Count 179 K/mcL (140-400); Red Blood Count 4.09 M/mcL (3.82-4.97); Red Cell Distribution Width 12.2 % (11.5-14.5)
[2017-09-13 02:36] LABS: BUN/Creatinine Ratio 16 (6-26); Blood Urea Nitrogen 9 mg/dL (7-20); Calcium 8.7 mg/dL (8.6-10.8); Carbon Dioxide 35 mEq/L (19-29); Chloride 97 mEq/L (98-109); Glucose 164 mg/dL (70-99); Osmolality,Calculated 294 (280-300); Potassium 4.4 mEq/L (3.5-4.5); Sodium 141 mEq/L (136-145); eGFR For African Americans > 60 (> 60); eGFR For Non-African Americans > 60 (> 60)
[2017-09-13 02:43] LABS: Platelet Estimate Normal (Normal); Reactive Lymphocytes Present (Not Present); Toxic Granulation Present (Not Present)
[2017-09-13] MEDS ORDERED: Albuterol 2.5 MG/3 ML NEBULIZER IH ONE ×2 (02:59→05:16)
--- NOTE | 2017-09-13 03:00 | Emergency Department Note ---
Disposition Clinical Impression: COPD exacerbation Hypercapnic respiratory failure Qualifiers: Chronicity: acute Qualified Code(s): J96.02 - Acute respiratory failure with hypercapnia Disposition: Admitted As Inpatient Condition: Fair General Adult HPI - General Chief complaint: ED Shortness of Breath/Dyspnea Stated complaint: SOB Time Seen by Provider: 09/13/17 02:09 Source: patient, EMS Limitations: no limitations Nursing Notes Reviewed: Yes Vital Signs Reviewed: Yes - History of Present Illness HPI Narrative: 51-year-old female with a past medical history of COPD. She was just discharged from the hospital approximately 12 hours ago. Her sister who is with her states that since she was discharged she has just become more progressively sleepy. She is also had increased work of breathing. She is on 2 L of oxygen at all times at home. Pain Scale: 0 Improves with: nothing Worsens with: nothing Associated symptoms: Reports: denies other symptoms Treatments Prior to Arrival: none - Related Data Home Medications Medication Instructions Recorded Confirmed Citalopram Hydrobromide [Celexa] 40 mg PO 2100 02/14/16 09/10/17 traZODone [TraZODone] 50 - 100 mg PO HS #0 02/14/16 09/10/17 Metformin HCl [Metformin HCl ER] 500 mg PO QPM 03/27/17 09/10/17 Mirtazapine [Remeron] 30 mg PO HS 03/27/17 09/10/17 ALPRAZolam [Xanax 0.5 MG Tablet] 0.5 mg PO BID 08/28/17 09/10/17 Budesonide/Formoterol 160/4.5 1 puff IH BIDR 08/28/17 09/10/17 [Symbicort 160/4.5] Naproxen Sodium [Aleve] 220 mg PO Q12H PRN 09/10/17 09/10/17 Previous Rx's Medication Instructions Recorded Albuterol Sulfate [Albuterol 2 puff IH Q4HR PRN #1 inhaler 09/12/17 Inhaler] DiphenhydraMINE [Benadryl] 25 mg PO Q6HR #40 capsule 09/12/17 Famotidine [Pepcid] 20 mg PO BID #20 tablet 09/12/17 Ipratropium/Albuterol Neb [Duoneb] 3 ml IH Q6HR PRN #100 inhsol 09/12/17 Allergies Allergy/AdvReac Type Severity Reaction Status Date / Time prednisone Allergy Redness of Verified 09/13/17 02:09 Skin sulfamethoxazole AdvReac Rash Verified 09/13/17 02:09 [From Bactrim] trimethoprim [From Bactrim] AdvReac Rash Verified 09/13/17 02:09 All systems ED: reviewed and negative except as stated. Constitutional: Denies: fever Cardiovascular: Denies: chest pain Respiratory: Reports: cough, dyspnea Gastrointestinal: Denies: abdominal pain Integumentary: Denies: rash Endocrine: Reports: fatigue Past Medical History - Past Medical History Medical history: Reports: COPD, diabetes, other Surgical history: Reports: appendectomy, Psychiatric history: Reports: anxiety, depression - Social History Smoking Status: Former smoker Smokeless Tobacco Status: No Alcohol use: Reports: none Drug use: Reports: none Physical Exam - General Limitations: no limitations General appearance: alert - Head Head exam: atraumatic - Eye Eye exam: Present: normal appearance, PERRL - ENT ENT exam: normal exam, normal oropharynx - Neck Neck exam: Present: normal inspection - Chest Chest inspection: Present: normal inspection - Respiratory Respiratory exam: Present: other (Minimal air movement, retractions are present) - Cardiovascular Cardiovascular exam: Present: normal rhythm, tachycardia - Abdominal Exam Abdominal exam: Present: soft, Non-Tender - Extremities Exam Extremities exam: Present: normal inspection - Neurological Exam Neurological exam: Present: other (Sleepy, but arouses to voice) - Skin Skin exam: Present: warm, dry Course Course Narrative: ABG shows elevated CO2 and acidotic pH. We are placing her on BiPAP to see if we can improve her sleepiness which is likely secondary to her CO2 elevation. She initially had difficulty tolerating the BiPAP but she eventually was able to relax enough to be old to use it. We have been slowly increasing her settings and her mental status has been improving. She is now able to keep her eyes open and is nodding appropriately to my questions. We will recheck an ABG to make sure her CO2 is declining. She will be admitted on a BiPAP. She did receive triple DuoNeb with triple albuterol and Solu-Medrol. She has substantial improvement in her CO2 and pH after being on the BiPAP. We will admit her to the hospital on the BiPAP. She has had improvement in her mental status. Vital Signs Temperature 97.7 F 09/13/17 02:05 Pulse Rate 103 09/13/17 02:05 Respiratory Rate 24 09/13/17 02:05 Blood Pressure 144/99 09/13/17 02:05 O2 Sat by Pulse Oximetry 99 09/13/17 02:05 Temperature 97.7 F 09/13/17 02:05 Pulse Rate 94 09/13/17 04:58 Respiratory Rate 22 09/13/17 04:58 Blood Pressure 129/85 09/13/17 04:58 O2 Sat by Pulse Oximetry 93 09/13/17 04:58 Oxygen Delivery Oxygen Delivery Bipap Medical Decision Making - Medical Records Medical records reviewed: Yes I reviewed the patient's medical records. - Lab Data Lab results reviewed: Yes I reviewed the patient's lab results. Result diagrams: 09/13/17 02:15 09/13/17 02:15 Lab Results 09/13/17 09/13/17 09/13/17 Range/Units 02:15 02:15 02:15 WBC 9.1 D (4.3-11.1) K/mcL RBC 4.09 (3.82-4.97) M/mcL Hgb 12.3 (11.5-15.4) g/dL Hct 39.9 (35.3-44.9) % MCV 97.6 (83.0-100.0) fL MCH 30.1 (28.0-33.3) pg MCHC 30.8 L (31.6-35.5) g/dL RDW 12.2 (11.5-14.5) % Plt Count 179 (140-400) K/mcL MPV 10.1 (9.4-12.4) fL Immature Gran % 0.3 (0-4) % Seg Neutrophils % 66.0 % Lymphocytes % 18.6 % Monocytes % 13.6 % Eosinophils % 1.0 % Basophils % 0.5 % Neutrophils # 6.0 (1.6-8.9) K/mcL Lymphocytes # 1.7 (0.6-4.6) K/mcL Monocytes # 1.2 (0.0-1.3) K/mcL Eosinophils # 0.1 (0.0-0.6) K/mcL Basophils # 0.1 (0.0-0.2) K/mcL Reactive Lymphocytes Present A (Not Present) Toxic Granulation Present A (Not Present) Platelet Estimate Normal (Normal) ABG pH (7.32-7.45) pH Units ABG pCO2 (35-45) mmHg ABG pO2 (85-104) mmHg ABG HCO3 (21-27) mEq/L ABG Total CO2 (20-26) mEq/L ABG O2 Saturation (95-98) % ABG Base Excess (-2 to 3) mEq/L Respiration Rate Blood Gas Modality Inspired O2 (1-15=lpm [id number]=%) Sodium 141 (136-145) mEq/L Potassium 4.4 (3.5-4.5) mEq/L Chloride 97 L (98-109) mEq/L Carbon Dioxide 35 H (19-29) mEq/L BUN 9 (7-20) mg/dL Creatinine 0.56 L (0.57-1.11) mg/dL Est GFR ( Amer) > 60 (> 60) Est GFR (Non-Af Amer) > 60 (> 60) BUN/Creatinine Ratio 16 (6-26) Glucose 164 H (70-99) mg/dL Calculated Osmolality 294 (280-300) Calcium 8.7 (8.6-10.8) mg/dL Troponin I 0.00 (0-0.03) ng/mL B-Natriuretic Peptide (0-100) pg/mL Person Notif of Crit 09/13/17 09/13/17 Range/Units 02:15 04:10 WBC (4.3-11.1) K/mcL RBC (3.82-4.97) M/mcL Hgb (11.5-15.4) g/dL Hct (35.3-44.9) % MCV (83.0-100.0) fL MCH (28.0-33.3) pg MCHC (31.6-35.5) g/dL RDW (11.5-14.5) % Plt Count (140-400) K/mcL MPV (9.4-12.4) fL Immature Gran % (0-4) % Seg Neutrophils % % Lymphocytes % % Monocytes % % Eosinophils % % Basophils % % Neutrophils # (1.6-8.9) K/mcL Lymphocytes # (0.6-4.6) K/mcL Monocytes # (0.0-1.3) K/mcL Eosinophils # (0.0-0.6) K/mcL Basophils # (0.0-0.2) K/mcL Reactive Lymphocytes (Not Present) Toxic Granulation (Not Present) Platelet Estimate (Normal) ABG pH 7.31 L (7.32-7.45) pH Units ABG pCO2 74 H* D (35-45) mmHg ABG pO2 61 L D (85-104) mmHg ABG HCO3 37 H (21-27) mEq/L ABG Total CO2 40 H (20-26) mEq/L ABG O2 Saturation 87 L (95-98) % ABG Base Excess 8 H (-2 to 3) mEq/L Respiration Rate 16 Blood Gas Modality BiLevel Inspired O2 28.0 (1-15=lpm [id number]=%) Sodium (136-145) mEq/L Potassium (3.5-4.5) mEq/L Chloride (98-109) mEq/L Carbon Dioxide (19-29) mEq/L BUN (7-20) mg/dL Creatinine (0.57-1.11) mg/dL Est GFR ( Amer) (> 60) Est GFR (Non-Af Amer) (> 60) BUN/Creatinine Ratio (6-26) Glucose (70-99) mg/dL Calculated Osmolality (280-300) Calcium (8.6-10.8) mg/dL Troponin I (0-0.03) ng/mL B-Natriuretic Peptide 94 (0-100) pg/mL Person Notif of Candida CASTANO - Radiology Data Radiology results reviewed: Yes I reviewed the patient's radiology results. - EKG Data EKG #1 EKG attestation: Yes I reviewed and interpreted this EKG. EKG shows normal: sinus rhythm Rate: tachycardia Rhythm: NSR Perry/QRS: normal Interpretation: no acute changes Critical Care Time Critical Care Time: Yes Total Critical Care Time: 40 Attestation: Critical care performed: Time is exclusive of separately billable procedures. Time includes: direct patient care, patient reassessment, coordination of patient care, interpretation of data (laboratory data, radiology data, and respiratory data), review of patient's medical records, medical consultation and documentation of patient care. Procedures included in critical care time: Procedures excluded from critical care time: Attestation Statement - Attestation Attestation: I, Yomi Munoz MD, personally evaluated this patient and discussed their management with the resident physician. I reviewed the resident's note and agree with the documented findings, medical decision making, and plan of care. 51-year-old female with history of COPD he was just discharged from the hospital yesterday afternoon presents to the emergency department for decreased responsiveness. Patient's sister states that when she picked her up from the hospital about 3 PM yesterday that she was very drowsy and sleepy and she took her home and she is just gotten progressively worse. On examination patient is a well-developed thin female in moderate distress. She is very drowsy and lethargic and unable to stay awake. No cyanosis or diaphoresis. Breath sounds are markedly decreased bilaterally with a few faint late expiratory wheezes. Heart regular rate and rhythm. Abdomen soft with normal bowel sounds. Labs reviewed. PH 7.22 and PCO2 96. Chest x-ray shows no acute cardiopulmonary abnormality. Patient placed on BiPAP and given DuoNeb treatments with significant improvement in her condition. She is more alert. Repeat labs show pH up to 7.31 and PCO2 decreased to 74. The hospitalist, Dr. Hunter, was consulted and accepted admission of the patient.
[2017-09-13 04:19] LABS: ABG Base Excess 8 mEq/L (-2 to 3); ABG HCO3 37 mEq/L (21-27); ABG Oxygen Saturation 87 % (95-98); ABG PCO2 74 mmHg (35-45); ABG PH 7.31 pH Units (7.32-7.45); ABG PO2 61 mmHg (85-104); ABG TCO2 40 mEq/L (20-26); Blood Gas Modality BiLevel; Blood Gas Respiration Rate 16
[2017-09-13] MEDS ORDERED: Albuterol Neb 7.5 MG, Sodium Chloride for inhalation 12 ML IH ONE (04:57)
[2017-09-13] MEDS: Ipratropium/Albuterol Neb 3 ML IH SCH ×7 (05:20→23:09)
--- NOTE | 2017-09-13 05:32 | Internal Med History&Physical ---
Date of Encounter: 09/13/17 Time of Encounter: 05:31 Assessment and Plan (1) Respiratory failure Current visit: Yes Status: Acute Hypercapnic respiratory failure due to COPD exacerbation. Patient currently on BiPAP. PH improved from 7.2 to 7.31. CO2 now is 74. Continue BiPAP. Repeat arterial blood gas in 2 ours at 7:30 AM. Patient denies any intake of opiate medications or overdose. If no improvement in level of alertness after improvement of CO2 level will get a head CT scan. Keep patient in ICU. She is full code according to next of kin available who is sister Qualifiers: Qualified Code(s): J96.90 - Respiratory failure, unspecified, unspecified whether with hypoxia or hypercapnia (2) COPD (chronic obstructive pulmonary disease) Current visit: No Status: Chronic I will give the patient now one hour continuous nebulizer. Keep on duoneb Q2 hours. We will start IV steroids. Zosyn for acute bronchitis. Qualifiers: COPD type: unspecified COPD Qualified Code(s): J44.9 - Chronic obstructive pulmonary disease, unspecified Internal Medicine - H&P: HPI Chief complaint: somnolence History of present illness: Ms. Sun is a 51 year old female with history of COPD on 2 L home oxygen presents to the emergency room today by her sister because of somnolence. Patient was recently hospitalized for drug reaction and COPD exacerbation. Today patient sister noticed that she is less responsive than usual. Patient was found to have a pH of 7.22 and a CO2 over 96. She was placed on BiPAP with some improvement in her level of alertness. Patient and sister denies intake of any opiate medications. Patients appears to be moving her extremities without obvious focal deficits. She has been having more cough and shortness of breath recently. No fever. Past Med Surg Social Fam HX - Past Medical History Medical history: COPD, diabetes, other Psychiatric history: anxiety, depression - Past Surgical History Surgical History: appendectomy, - Social History Smoking Status: Former smoker Smokeless Tobacco Status: No Alcohol use: none Drug use: none - Family History Mother Living Status: Still Living Hx Family Respiratory Disorders: Yes Hx Family Cancer: Yes (Breast with L-masectomy) Hx Family Endocrine Disorder: Yes (DM) Hx Family Neurologic Disorders: Yes (stroke) Hx Family HEENT Disorders: Yes (L-eye blind) Father Living Status: Hx Family Cardiac Disorders: Yes ([place]) Hx Family Respiratory Disorders: Yes (COPD) Hx Family Cancer: Yes (Lung) Hx Family Endocrine Disorder: Yes (diabetes) Internal Medicine - H&P: Meds Citalopram Hydrobromide [Celexa] 40 mg PO 2100 02/14/16 [History] traZODone [TraZODone] 50 - 100 mg PO HS #0 02/14/16 [History] Metformin HCl [Metformin HCl ER] 500 mg PO QPM 03/27/17 [History] Mirtazapine [Remeron] 30 mg PO HS 03/27/17 [History] ALPRAZolam [Xanax 0.5 MG Tablet] 0.5 mg PO BID 08/28/17 [History] Budesonide/Formoterol 160/4.5 [Symbicort 160/4.5] 1 puff IH BIDR 08/28/17 [ History] Naproxen Sodium [Aleve] 220 mg PO Q12H PRN 09/10/17 [History] Albuterol Sulfate [Albuterol Inhaler] 2 puff IH Q4HR PRN #1 inhaler 09/12/17 [Rx ] DiphenhydraMINE [Benadryl] 25 mg PO Q6HR #40 capsule 09/12/17 [Rx] Famotidine [Pepcid] 20 mg PO BID #20 tablet 09/12/17 [Rx] Ipratropium/Albuterol Neb [Duoneb] 3 ml IH Q6HR PRN #100 inhsol 09/12/17 [Rx] 3 Allergy/AdvReac Type Severity Reaction Status Date / Time prednisone Allergy Redness of Verified 09/13/17 02:09 Skin sulfamethoxazole AdvReac Rash Verified 09/13/17 02:09 [From Bactrim] trimethoprim [From Bactrim] AdvReac Rash Verified 09/13/17 02:09 All Systems PM: A 10-system review of systems was performed and is negative for pertinent findings except as documented above in the HPI. Review of systems: 10 point review of systems is negative except for HPI - Constitutional Vitals: Temp Pulse Resp BP Pulse Ox 97.7 F 94 22 107/76 93 09/13/17 02:05 09/13/17 04:58 09/13/17 05:18 09/13/17 05:18 09/13/17 05:18 Exam: Gen.: patient is stuporous cardiac: normal S1 S2 no additional sounds or murmurs chest: silent chest. abdomen soft nontender nondistended normal bowel sounds lower extremity no swelling. Neuro: no new focal deficits Internal Med - H&P Results - Labs CBC & Chem 7: 09/13/17 02:15 09/13/17 02:15
[2017-09-13] MEDS ORDERED: methylPREDNISolone 125 MG/2 ML VIAL IVP SCH (06:00)
[2017-09-13] MEDS: Piperacillin/Tazobactam 3.375 GM in D5% in Water 50 ML IVPB SCH ×3 (07:02→21:05)
[2017-09-13] MEDS: Famotidine 20 MG/2 ML VIAL IVP SCH ×2 (08:22→17:51)
[2017-09-13] MEDS: Insulin LISPRO 300 UNITS/3 ML VIAL SQ SCH ×4 (08:22→23:12)
[2017-09-13] MEDS ORDERED: Budesonide/Formoterol 160/4.5 MDI IH SCH ×2 (08:30→10:00)
[2017-09-13] MEDS: Budesonide/Formoterol 160/4.5 MDI IH SCH ×2 (08:31→19:55)
--- NOTE | 2017-09-13 11:09 | Pulmonology Consult Note ---
<Patricia Kendrick - Last Filed: 09/13/17 12:10> Date of Encounter: 09/13/17 Time of Encounter: 10:30 Assessment and Plan (1) Acute and chronic respiratory failure ([id number]) Current Visit: Yes Status: Acute -possibly related to her COPD, hospitalized for COPD exacerbation 09/10/17 -ABG improved since starting on BiPAP, pH 7.31 (7.22) and pCO2 74 (96) -CXR today shows no acute cardiopulmonary processes -decrease solumedrol to 40mg IVP Q8H -zosyn IV -duonebs scheduled Q4H and continue symbicort BID -consider overnight qualification for BiPAP Qualifiers: Respiratory failure complication: hypercapnia Qualified Code(s): J96.22 - Acute and chronic respiratory failure with hypercapnia (2) COPD (chronic obstructive pulmonary disease) Current Visit: Yes Status: Chronic -recent hospitalization for COPD exacerbation -2L home O2 at all times -continue scheduled duoneb and symbicort -SW consult for difficulty affording inhalers Qualifiers: COPD type: unspecified COPD Qualified Code(s): J44.9 - Chronic obstructive pulmonary disease, unspecified (3) Diabetes Current Visit: Yes Status: Chronic -SSI for glucose control -adjust insulin as needed Qualifiers: Diabetes mellitus type: type 2 Diabetes mellitus complication status: without complication Diabetes mellitus nursing home insulin use: without nursing home use Qualified Code(s): E11.9 - Type 2 diabetes mellitus without complications (4) DVT prophylaxis Current Visit: Yes Status: Acute -Heparin 5000 units Q12H History of Present Illness Consult date: 09/13/17 Reason for consult: dyspnea Chief complaint: dyspnea History of present illness: Patient is a 51 year old female with PMH of COPD (2L continuous home O2) and DM who was admitted 09/10/17 for COPD exacerbation. She presents several hours after discharge for increased drowsiness and less responsive per patient's sister. In the ED, ABG showed patient to be in respiratory acidosis with significantly elevated pCO2 and placed on BiPAP in the ED. Per past documentation re: this visit, patient's sister reports patient has had a cough and increased shortness of breath. Admitted for ongoing care. ROS unable to be obtained from patient d/t her lethargy, quickly falls asleep after being asked questions. Past Med Surg Social Fam HX - Past Medical History Medical history: COPD, diabetes, other Psychiatric history: anxiety, depression - Past Surgical History Surgical History: appendectomy, - Social History Smoking Status: Former smoker Smokeless Tobacco Status: No Alcohol use: none Drug use: none - Family History Mother Living Status: Still Living Hx Family Respiratory Disorders: Yes Hx Family Cancer: Yes (Breast with L-masectomy) Hx Family Endocrine Disorder: Yes (DM) Hx Family Neurologic Disorders: Yes (stroke) Hx Family HEENT Disorders: Yes (L-eye blind) Father Living Status: Hx Family Cardiac Disorders: Yes ([place]) Hx Family Respiratory Disorders: Yes (COPD) Hx Family Cancer: Yes (Lung) Hx Family Endocrine Disorder: Yes (diabetes) Medications and Allergies Citalopram Hydrobromide [Celexa] 40 mg PO 2100 02/14/16 [History] traZODone [TraZODone] 50 - 100 mg PO HS #0 02/14/16 [History] Metformin HCl [Metformin HCl ER] 500 mg PO QPM 03/27/17 [History] Mirtazapine [Remeron] 30 mg PO HS 03/27/17 [History] ALPRAZolam [Xanax 0.5 MG Tablet] 0.5 mg PO BID 08/28/17 [History] Budesonide/Formoterol 160/4.5 [Symbicort 160/4.5] 1 puff IH BIDR 08/28/17 [ History] Naproxen Sodium [Aleve] 220 mg PO Q12H PRN 09/10/17 [History] Albuterol Sulfate [Albuterol Inhaler] 2 puff IH Q4HR PRN #1 inhaler 09/12/17 [Rx ] DiphenhydraMINE [Benadryl] 25 mg PO Q6HR #40 capsule 09/12/17 [Rx] Famotidine [Pepcid] 20 mg PO BID #20 tablet 09/12/17 [Rx] Ipratropium/Albuterol Neb [Duoneb] 3 ml IH Q6HR PRN #100 inhsol 09/12/17 [Rx] 3 Allergy/AdvReac Type Severity Reaction Status Date / Time prednisone Allergy Redness of Verified 09/13/17 02:09 Skin sulfamethoxazole AdvReac Rash Verified 09/13/17 02:09 [From Bactrim] trimethoprim [From Bactrim] AdvReac Rash Verified 09/13/17 02:09 ROS unobtainable: due to mental status All Systems: A 10-system review of systems was performed and is negative for pertinent findings except as documented above in the HPI. Physical Examination Vital Signs: Vital Signs, Last 4 Hours Pulse Resp BP Pulse Ox 09/13/17 10:00 85 14 105/76 97 09/13/17 09:00 85 15 96/65 97 09/13/17 08:35 13 98 09/13/17 08:00 89 16 102/70 95 09/13/17 07:59 89 General appearance: lethargic, other Eyes: nonicteric Neck: supple Effort: normal Inspection: normal Auscultation: bilateral: clear Cardiovascular: regular rate and rhythm Gastrointestinal: normoactive bowel sounds, soft, tender, non-distended Extremities: no cyanosis, pink and warm, pulses normal non-focal exam, pupils equal and round Results - Laboratory Findings CBC and BMP: 09/13/17 02:15 09/13/17 02:15 ABG ABG pH 7.31 pH Units (7.32-7.45) L 09/13/17 04:10 ABG pCO2 74 mmHg (35-45) H* D 09/13/17 04:10 ABG pO2 61 mmHg (85-104) L D 09/13/17 04:10 ABG O2 Saturation 87 % (95-98) L 09/13/17 04:10 Abnormal lab findings: Abnormal lab results MCHC 30.8 g/dL (31.6-35.5) L 09/13/17 02:15 Reactive Lymphocytes Present (Not Present) A 09/13/17 02:15 Toxic Granulation Present (Not Present) A 09/13/17 02:15 ABG pH 7.31 pH Units (7.32-7.45) L 09/13/17 04:10 ABG pCO2 74 mmHg (35-45) H* D 09/13/17 04:10 ABG pO2 61 mmHg (85-104) L D 09/13/17 04:10 ABG HCO3 37 mEq/L (21-27) H 09/13/17 04:10 ABG Total CO2 40 mEq/L (20-26) H 09/13/17 04:10 ABG O2 Saturation 87 % (95-98) L 09/13/17 04:10 ABG Base Excess 8 mEq/L (-2 to 3) H 09/13/17 04:10 Chloride 97 mEq/L (98-109) L 09/13/17 02:15 Carbon Dioxide 35 mEq/L (19-29) H 09/13/17 02:15 Creatinine 0.56 mg/dL (0.57-1.11) L 09/13/17 02:15 Glucose 164 mg/dL (70-99) H 09/13/17 02:15 POC Glucose 240 (58-89) H 09/13/17 06:23 - Clinical Findings Intake & Output: Intake & Output 09/12/17 09/13/17 09/13/17 23:59 07:59 15:59 Weight 48 kg Consult Discharge Plan - Plan Referrals: Benjamin Thayer MD [Primary Care Provider] - <Alexandra Llamas - Last Filed: 09/13/17 21:44> Date of Encounter: 09/13/17 All Systems: A 10-system review of systems was performed and is negative for pertinent findings except as documented above in the HPI. Physical Examination Vital Signs: Vital Signs, Last 4 Hours Temp Pulse Resp BP Pulse Ox 09/13/17 17:00 88 20 114/76 93 09/13/17 16:12 97.8 F 09/13/17 16:00 86 16 117/76 95 09/13/17 15:38 21 100 09/13/17 15:00 80 21 106/70 95 Ventilator Settings Ventilator Settings: Ventilator Settings, Last 8 Hours Ventilator Respiratory Rate 8 Setting Results - Laboratory Findings CBC and BMP: 09/13/17 02:15 09/13/17 02:15 ABG ABG pH 7.42 pH Units (7.32-7.45) 09/13/17 15:40 ABG pCO2 55 mmHg (35-45) H 09/13/17 15:40 ABG pO2 68 mmHg (85-104) L 09/13/17 15:40 ABG O2 Saturation 93 % (95-98) L 09/13/17 15:40 Abnormal lab findings: Abnormal lab results MCHC 30.8 g/dL (31.6-35.5) L 09/13/17 02:15 Reactive Lymphocytes Present (Not Present) A 09/13/17 02:15 Toxic Granulation Present (Not Present) A 09/13/17 02:15 ABG pCO2 55 mmHg (35-45) H 09/13/17 15:40 ABG pO2 68 mmHg (85-104) L 09/13/17 15:40 ABG HCO3 36 mEq/L (21-27) H 09/13/17 15:40 ABG Total CO2 37 mEq/L (20-26) H 09/13/17 15:40 ABG O2 Saturation 93 % (95-98) L 09/13/17 15:40 ABG Base Excess 10 mEq/L (-2 to 3) H 09/13/17 15:40 Chloride 97 mEq/L (98-109) L 09/13/17 02:15 Carbon Dioxide 35 mEq/L (19-29) H 09/13/17 02:15 Creatinine 0.56 mg/dL (0.57-1.11) L 09/13/17 02:15 Glucose 164 mg/dL (70-99) H 09/13/17 02:15 POC Glucose 226 (58-89) H 09/13/17 17:50 Albumin 3.2 g/dL (3.5-5.0) L 09/13/17 11:47 Albumin/Globulin Ratio 0.9 (1.1-2.2) L 09/13/17 11:47 - Clinical Findings Intake & Output: Intake & Output 09/13/17 09/13/17 09/13/17 07:59 15:59 23:59 Intake Total 50 / 50 Balance 50 / 50 Weight 48 kg - Attending Attestation I saw the patient with the resident agree with History and Physical exam findings. Labs and Radiology were reviewed on BIPAP 22/06 [employer] OFF[employer]IAL: Patient is conscious oriented x3 following commands NECK : No JVD appreciated Pulmonary : Patient is hypoxic and hypercarbic on BIPAP due to COPD exacerbation will put on bronchodilators ,Steroids and antibiotics will give break off BIPAP will put back on BIPAP HS , needs BIPAP qualification before discharge Cardiac : Hemodynamically stable Nutrition/GI: Will put her on clear liquid diet when she is off BIPAP to put her back on BIPAP after 4 hours of diet . Renal : Labs and out put reviewed Heme onc : No acute or chronic issues Musculo skeletal / skin issues : No acute issues Disposition : Remain Critical Code status: Full Code Family/POA: Sister . Spent 32 minutes of critical care time in supporting vital organ function and preventing decline of the same.
[2017-09-13 12:10] LABS: Albumin 3.2 g/dL (3.5-5.0); Albumin/Globulin Ratio 0.9 (1.1-2.2); Bilirubin,Direct 0.1 mg/dL (0.0-0.5); Bilirubin,Indirect 0.2 mg/dL (0.0-1.2); Bilirubin,Total 0.3 mg/dL (0.2-1.2); Globulin 3.4 g/dL (2.4-3.5); Total Protein 6.6 g/dL (6.0-8.3)
[2017-09-13 15:48] LABS: ABG Base Excess 10 mEq/L (-2 to 3); ABG HCO3 36 mEq/L (21-27); ABG Oxygen Saturation 93 % (95-98); ABG PCO2 55 mmHg (35-45); ABG PH 7.42 pH Units (7.32-7.45); ABG PO2 68 mmHg (85-104); ABG TCO2 37 mEq/L (20-26); Blood Gas PEEP 8 cm H2O; Blood Gas Respiration Rate 8
[2017-09-13] MEDS: MethylPREDNISolone 40 MG/ML VIAL IVP SCH ×2 (16:37→23:12)
[2017-09-13 17:39] LABS: Adenovirus Not Detected (Not Detect); Bordetella Pertussis Not Detected (Not Detect); Chlamydophila pneumoniae Not Detected (Not Detect); Coronavirus 229E Not Detected (Not Detect); Coronavirus HKU1 Not Detected (Not Detect); Coronavirus NL63 Not Detected (Not Detect); Coronavirus OC43 Not Detected (Not Detect); Human Metapneumovirus Not Detected (Not Detect); Human Rhinovirus/Enterovirus Not Detected (Not Detect); Influenza A Subtype 2009 H1 Not Detected (Not Detect); Influenza A Untypeable Not Detected (Not Detect); Influenza B Not Detected (Not Detect); Mycoplasma pneumoniae Not Detected (Not Detect); Parainfluenza Virus 1 Not Detected (Not Detect); Parainfluenza Virus 2 Not Detected (Not Detect); Parainfluenza Virus 3 Not Detected (Not Detect); Parainfluenza Virus 4 Not Detected (Not Detect); Respiratory Syncytial Virus Not Detected (Not Detect)
[2017-09-13] MEDS: *HR* Heparin 5,000 UNIT/ML VIAL SQ SCH (17:51)
--- NOTE | 2017-09-13 18:22 | Electrocardiograph Report ---
[address] [place] [address] Test Date: 2017-09-13 Pat Name: Mildred Sun Department: 103 Room: [facility] Gender: F [employer] Attendant: TERRIE : 1965 Requested By: Don Gonzalez Order Number: [id number] Reading MD: Jose Gilbert MD Measurements Intervals [place] Rate: 103 P: 85 [place]: 130 QRS: 81 QRSD: 74 T: 65 QT: 314 QTc: 373 Interpretive Statements SINUS TACHYCARDIA Electronically Signed On 09-13-2017 18:20:31 EST by Jose Gilbert MD
[2017-09-13] MEDS: ALPRAZolam 0.5 MG TABLET PO PRN (21:37)
[2017-09-14 03:02] LABS: Basophils % 0.2 %; Hematocrit 33.3 % (35.3-44.9); Hemoglobin 10.8 g/dL (11.5-15.4); Immature Granulocytes % 0.2 % (0-4); Lymphocytes # 1.1 K/mcL (0.6-4.6); Lymphocytes % 17.6 %; Mean Corpuscular HGB Conc 32.4 g/dL (31.6-35.5); Mean Corpuscular Hemoglobin 30.4 pg (28.0-33.3); Mean Corpuscular Volume 93.8 fL (83.0-100.0); Mean Platelet Volume 10.1 fL (9.4-12.4); Monocytes # 0.3 K/mcL (0.0-1.3); Monocytes % 4.8 %; Neutrophils # 4.8 K/mcL (1.6-8.9); Platelet Count 190 K/mcL (140-400); Red Blood Count 3.55 M/mcL (3.82-4.97); Segmented Neutrophils % 77.2 %
[2017-09-14 03:36] LABS: BUN/Creatinine Ratio 23 (6-26); Blood Urea Nitrogen 14 mg/dL (7-20); Calcium 8.8 mg/dL (8.6-10.8); Carbon Dioxide 31 mEq/L (19-29); Chloride 97 mEq/L (98-109); Glucose 171 mg/dL (70-99); Magnesium 1.7 mg/dL (1.6-2.6); Osmolality,Calculated 291 (280-300); Potassium 3.7 mEq/L (3.5-4.5); Sodium 138 mEq/L (136-145); eGFR For African Americans > 60 (> 60); eGFR For Non-African Americans > 60 (> 60)
[2017-09-14] MEDS: Ipratropium/Albuterol Neb 3 ML IH SCH ×5 (04:31→20:54)
[2017-09-14] MEDS: Piperacillin/Tazobactam 3.375 GM in D5% in Water 50 ML IVPB SCH (05:16)
[2017-09-14] MEDS: *HR* Heparin 5,000 UNIT/ML VIAL SQ SCH ×2 (05:17→18:29)
[2017-09-14] MEDS: Famotidine 20 MG/2 ML VIAL IVP SCH ×2 (05:17→18:28)
[2017-09-14] MEDS: Insulin LISPRO 300 UNITS/3 ML VIAL SQ SCH ×4 (05:24→23:14)
[2017-09-14] MEDS: Budesonide/Formoterol 160/4.5 MDI IH SCH ×2 (08:19→20:54)
[2017-09-14] MEDS: MethylPREDNISolone 40 MG/ML VIAL IVP SCH ×2 (08:30→18:28)
--- NOTE | 2017-09-14 08:58 | Pulmonology Progress Note ---
<Patricia Kendrick - Last Filed: 09/14/17 16:26> Date of Encounter: 09/14/17 Time of Encounter: 07:30 Assessment and Plan (1) Acute and chronic respiratory failure ([id number]-[id number]) Current Visit: Yes Status: Acute -possibly related to her COPD, hospitalized for COPD exacerbation 09/10/17 -continues to improve clinically, patient is AAO x3 -decrease solumedrol to 40mg IVP Q12H -stopped IV zosyn and started PO levaquin -duonebs scheduled Q4H and continue symbicort BID -overnight qualification for BiPAP (room air) tonight Qualifiers: Respiratory failure complication: hypercapnia Qualified Code(s): J96.22 - Acute and chronic respiratory failure with hypercapnia (2) COPD (chronic obstructive pulmonary disease) Current Visit: Yes Status: Chronic -recent hospitalization for COPD exacerbation -per patient, her home O2 is 2L on PRN basis -continue scheduled duoneb and symbicort -SW consult for difficulty affording inhalers Qualifiers: COPD type: unspecified COPD Qualified Code(s): J44.9 - Chronic obstructive pulmonary disease, unspecified (3) Diabetes Current Visit: Yes Status: Chronic -SSI for glucose control -adjust insulin as needed Qualifiers: Diabetes mellitus type: type 2 Diabetes mellitus complication status: without complication Diabetes mellitus bed bug exterminator insulin use: without chcf use Qualified Code(s): E11.9 - Type 2 diabetes mellitus without complications (4) DVT prophylaxis Current Visit: Yes Status: Acute -Heparin 5000 units Q12H Subjective Principal diagnosis: acute on chronic respiratory failure Interval history: Patient seen and examined this morning at bedside. She is comfortably sitting up in bed, on 2.5L NC. Patient states she is doing well and feels her breathing has improved over yesterday. She denies fever, chills, chest pain, shortness of breath, nausea, vomiting, abdominal pain. Patient has no complaints at this time. Objective PUL Vital signs: Last Vital Signs Temp 97.6 F 09/14/17 07:32 Pulse 86 09/14/17 08:00 Resp 20 09/14/17 08:00 BP 113/79 09/14/17 08:00 Pulse Ox 90 09/14/17 08:00 General appearance: no acute distress, alert Eyes: nonicteric ENT: oropharynx moist Neck: supple Effort: normal Auscultation: bilateral: clear, diminished breath sounds Cardiovascular: regular rate and rhythm Gastrointestinal: normoactive bowel sounds Integumentary: normal Extremities: no cyanosis, no edema, no clubbing, pink and warm normal mental status, non-focal exam, pupils equal and round affect normal Results - Laboratory Findings CBC and BMP: 09/14/17 02:41 09/14/17 02:41 ABG ABG pH 7.42 pH Units (7.32-7.45) 09/13/17 15:40 ABG pCO2 55 mmHg (35-45) H 09/13/17 15:40 ABG pO2 68 mmHg (85-104) L 09/13/17 15:40 ABG O2 Saturation 93 % (95-98) L 09/13/17 15:40 Abnormal lab findings: Abnormal lab results RBC 3.55 M/mcL (3.82-4.97) L 09/14/17 02:41 Hgb 10.8 g/dL (11.5-15.4) L D 09/14/17 02:41 Hct 33.3 % (35.3-44.9) L 09/14/17 02:41 Reactive Lymphocytes Present (Not Present) A 09/13/17 02:15 Toxic Granulation Present (Not Present) A 09/13/17 02:15 ABG pCO2 55 mmHg (35-45) H 09/13/17 15:40 ABG pO2 68 mmHg (85-104) L 09/13/17 15:40 ABG HCO3 36 mEq/L (21-27) H 09/13/17 15:40 ABG Total CO2 37 mEq/L (20-26) H 09/13/17 15:40 ABG O2 Saturation 93 % (95-98) L 09/13/17 15:40 ABG Base Excess 10 mEq/L (-2 to 3) H 09/13/17 15:40 Chloride 97 mEq/L (98-109) L 09/14/17 02:41 Carbon Dioxide 31 mEq/L (19-29) H 09/14/17 02:41 Glucose 171 mg/dL (70-99) H 09/14/17 02:41 POC Glucose 163 (58-89) H 09/13/17 23:10 Albumin 3.2 g/dL (3.5-5.0) L 09/13/17 11:47 Albumin/Globulin Ratio 0.9 (1.1-2.2) L 09/13/17 11:47 - Clinical Findings Intake & Output: Intake & Output 09/13/17 09/14/17 09/14/17 23:59 07:59 15:59 Intake Total 50 / 50 50 / 50 Output Total 200 / 200 400 / 400 Balance -150 / -150 -350 / -350 Weight 48.6 kg - VTE Documentation of Mechanical Device: Intermittent pneumatic compression device Consult Discharge Plan - Plan Referrals: Benjamin Thayer MD [Primary Care Provider] - <Alexandra Llamas - Last Filed: 09/14/17 19:54> Date of Encounter: 09/14/17 Objective PUL Vital signs: Last Vital Signs Temp 98.3 F 09/14/17 15:51 Pulse 86 09/14/17 18:00 Resp 27 09/14/17 18:00 BP 118/78 09/14/17 18:00 Pulse Ox 93 09/14/17 18:00 Results - Laboratory Findings CBC and BMP: 09/14/17 02:41 09/14/17 02:41 ABG ABG pH 7.42 pH Units (7.32-7.45) 09/13/17 15:40 ABG pCO2 55 mmHg (35-45) H 09/13/17 15:40 ABG pO2 68 mmHg (85-104) L 09/13/17 15:40 ABG O2 Saturation 93 % (95-98) L 09/13/17 15:40 Abnormal lab findings: Abnormal lab results RBC 3.55 M/mcL (3.82-4.97) L 09/14/17 02:41 Hgb 10.8 g/dL (11.5-15.4) L D 09/14/17 02:41 Hct 33.3 % (35.3-44.9) L 09/14/17 02:41 Reactive Lymphocytes Present (Not Present) A 09/13/17 02:15 Toxic Granulation Present (Not Present) A 09/13/17 02:15 ABG pCO2 55 mmHg (35-45) H 09/13/17 15:40 ABG pO2 68 mmHg (85-104) L 09/13/17 15:40 ABG HCO3 36 mEq/L (21-27) H 09/13/17 15:40 ABG Total CO2 37 mEq/L (20-26) H 09/13/17 15:40 ABG O2 Saturation 93 % (95-98) L 09/13/17 15:40 ABG Base Excess 10 mEq/L (-2 to 3) H 09/13/17 15:40 Chloride 97 mEq/L (98-109) L 09/14/17 02:41 Carbon Dioxide 31 mEq/L (19-29) H 09/14/17 02:41 Glucose 171 mg/dL (70-99) H 09/14/17 02:41 POC Glucose 163 (58-89) H 09/13/17 23:10 Albumin 3.2 g/dL (3.5-5.0) L 09/13/17 11:47 Albumin/Globulin Ratio 0.9 (1.1-2.2) L 09/13/17 11:47 - Clinical Findings Intake & Output: Intake & Output 09/14/17 09/14/17 09/14/17 07:59 15:59 23:59 Intake Total 50 / 50 50 / 50 Output Total 400 / 400 100 / 100 250 / 250 Balance -350 / -350 -50 / -50 -250 / -250 - Attending Attestation I saw the patient with the resident agree with History and Physical exam findings. Labs and Radiology were reviewed on BIPAP overnight FINISHER CARD TENDER: Patient is conscious oriented x3 following commands , patient is feeling lot better NECK : No JVD appreciated Pulmonary : Patient is hypoxic and hypercarbic on BIPAP due to COPD exacerbation will put on bronchodilators ,Steroids and antibiotics . Since patient had marked improvement will do overnight BIPAP qualification on room aire Cardiac : Hemodynamically stable Nutrition/GI: Patient is on diabetic diet . Renal : Labs and out put reviewed Heme onc : No acute or chronic issues ID : Will change to levaquin Endo: Will to continue insulin sliding scale when going home put her back on Metformin Musculo skeletal / skin issues : No acute issues Disposition : Stable will transfer to the floor tomorrow. Code status: Full Code Family/POA: Sister .
[2017-09-14] MEDS: ALPRAZolam 0.5 MG TABLET PO PRN (18:44)
[2017-09-14] MEDS ORDERED: Mirtazapine 15 MG TABLET PO SCH (21:00)
[2017-09-15] MEDS: Ipratropium/Albuterol Neb 3 ML IH SCH ×7 (00:26→23:48)
[2017-09-15 02:42] LABS: Basophils % 0.1 %; Hematocrit 34.5 % (35.3-44.9); Hemoglobin 11.3 g/dL (11.5-15.4); Immature Granulocytes % 0.8 % (0-4); Lymphocytes # 0.8 K/mcL (0.6-4.6); Lymphocytes % 10.5 %; Mean Corpuscular HGB Conc 32.8 g/dL (31.6-35.5); Mean Corpuscular Hemoglobin 30.2 pg (28.0-33.3); Mean Corpuscular Volume 92.2 fL (83.0-100.0); Monocytes # 0.7 K/mcL (0.0-1.3); Neutrophils # 6.1 K/mcL (1.6-8.9); Platelet Count 239 K/mcL (140-400); Red Blood Count 3.74 M/mcL (3.82-4.97); Red Cell Distribution Width 12.1 % (11.5-14.5); Segmented Neutrophils % 79.6 %
[2017-09-15 02:55] LABS: BUN/Creatinine Ratio 23 (6-26); Blood Urea Nitrogen 15 mg/dL (7-20); Calcium 8.9 mg/dL (8.6-10.8); Carbon Dioxide 32 mEq/L (19-29); Chloride 100 mEq/L (98-109); Glucose 230 mg/dL (70-99); Magnesium 1.7 mg/dL (1.6-2.6); Osmolality,Calculated 298 (280-300); Potassium 3.5 mEq/L (3.5-4.5); Sodium 140 mEq/L (136-145); eGFR For African Americans > 60 (> 60); eGFR For Non-African Americans > 60 (> 60)
[2017-09-15] MEDS: *HR* Heparin 5,000 UNIT/ML VIAL SQ SCH (05:53)
[2017-09-15] MEDS: MethylPREDNISolone 40 MG/ML VIAL IVP SCH (05:53)
[2017-09-15] MEDS: Insulin LISPRO 300 UNITS/3 ML VIAL SQ SCH ×3 (05:53→16:39)
[2017-09-15] MEDS: Famotidine 20 MG/2 ML VIAL IVP SCH (05:53)
[2017-09-15] MEDS: Budesonide/Formoterol 160/4.5 MDI IH SCH ×2 (07:46→20:24)
[2017-09-15] MEDS ORDERED: levoFLOXacin 500 MG TABLET PO SCH (09:00)
--- NOTE | 2017-09-15 10:17 | Pulmonology Progress Note ---
<AroldoPatricia - Last Filed: 09/15/17 11:18> Date of Encounter: 09/15/17 Time of Encounter: 09:50 Assessment and Plan (1) Acute and chronic respiratory failure ([id number]) Current Visit: Yes Status: Acute -improving clinically; on IV solumedrol and levaquin PO, duonebs, symbicort -qualifies for home BiPAP based on pCO2 of 55 -inspiratory/expiratory pressure settings: / -keep baseline O2 at 88% or above -FiO2 21% (does not require O2 at night) -Back up respiratory rate: 8 -consulting SW re: helping patient get home BiPAP before discharge; strong likelihood patient would return to hospital soon after d/c without home BiPAP -patient is stable and doing well, discussed with team and she's safe to transfer to floor bed with tele monitoring -spoke with admitting hospitalist (Dr. Octavio Celestin) and patient was accepted by hospitalist Qualifiers: Respiratory failure complication: hypercapnia Qualified Code(s): J96.22 - Acute and chronic respiratory failure with hypercapnia (2) COPD (chronic obstructive pulmonary disease) Current Visit: Yes Status: Chronic -recent hospital stay for COPD exacerbation -per patient, her home O2 is 2L on PRN basis -continue scheduled duoneb and symbicort -seen by SW for difficulty affording inhalers, discussed resources and strategies with patient Qualifiers: COPD type: unspecified COPD Qualified Code(s): J44.9 - Chronic obstructive pulmonary disease, unspecified (3) Diabetes Current Visit: Yes Status: Chronic -SSI -ACHS accu-checks to monitor blood glucose -adjust insulin as needed Qualifiers: Diabetes mellitus type: type 2 Diabetes mellitus complication status: without complication Diabetes mellitus care home insulin use: without forge operator helper use Qualified Code(s): E11.9 - Type 2 diabetes mellitus without complications (4) DVT prophylaxis Current Visit: Yes Status: Acute -Heparin 5000 units Q12H Subjective Principal diagnosis: acute on chronic respiratory failure Interval history: Patient seen and examined this morning at bedside. She is comfortably sitting up in bed, breathing on room air. Patient states she is doing well; denies fever , chills, chest pain, cough, nausea, vomiting, abdominal pain. Discussed today' s plan with patient who has no complaints or questions at this time. Objective PUL Vital signs: Last Vital Signs Temp 98.1 F 09/15/17 08:30 Pulse 85 09/15/17 08:30 Resp 18 09/15/17 08:30 BP 144/113 09/15/17 08:30 Pulse Ox 95 09/15/17 08:30 General appearance: no acute distress, alert Eyes: nonicteric ENT: oropharynx moist Neck: supple Effort: normal Auscultation: bilateral: clear, diminished breath sounds Cardiovascular: regular rate and rhythm Gastrointestinal: normoactive bowel sounds, non-distended normal mental status, non-focal exam mood appropriate, affect normal Results - Laboratory Findings CBC and BMP: 09/15/17 02:37 09/15/17 02:37 ABG ABG pH 7.42 pH Units (7.32-7.45) 09/13/17 15:40 ABG pCO2 55 mmHg (35-45) H 09/13/17 15:40 ABG pO2 68 mmHg (85-104) L 09/13/17 15:40 ABG O2 Saturation 93 % (95-98) L 09/13/17 15:40 Abnormal lab findings: Abnormal lab results RBC 3.74 M/mcL (3.82-4.97) L 09/15/17 02:37 Hgb 11.3 g/dL (11.5-15.4) L 09/15/17 02:37 Hct 34.5 % (35.3-44.9) L 09/15/17 02:37 Reactive Lymphocytes Present (Not Present) A 09/13/17 02:15 Toxic Granulation Present (Not Present) A 09/13/17 02:15 ABG pCO2 55 mmHg (35-45) H 09/13/17 15:40 ABG pO2 68 mmHg (85-104) L 09/13/17 15:40 ABG HCO3 36 mEq/L (21-27) H 09/13/17 15:40 ABG Total CO2 37 mEq/L (20-26) H 09/13/17 15:40 ABG O2 Saturation 93 % (95-98) L 09/13/17 15:40 ABG Base Excess 10 mEq/L (-2 to 3) H 09/13/17 15:40 Carbon Dioxide 32 mEq/L (19-29) H 09/15/17 02:37 Glucose 230 mg/dL (70-99) H 09/15/17 02:37 POC Glucose 205 (58-89) H 09/14/17 23:12 Albumin 3.2 g/dL (3.5-5.0) L 09/13/17 11:47 Albumin/Globulin Ratio 0.9 (1.1-2.2) L 09/13/17 11:47 - Clinical Findings Intake & Output: Intake & Output 09/14/17 09/15/17 09/15/17 23:59 07:59 15:59 Intake Total 240 / 240 600 / 600 Output Total 500 / 500 Balance -500 / -500 240 / 240 600 / 600 Weight 50.3 kg - VTE Documentation of Mechanical Device: Intermittent pneumatic compression device Consult Discharge Plan - Plan Referrals: Benjamin Thayer MD [Primary Care Provider] - <Alexandra Llamas S - Last Filed: 09/15/17 21:53> Date of Encounter: 09/15/17 Objective PUL Vital signs: Last Vital Signs Temp 98.0 F 09/15/17 19:14 Pulse 85 09/15/17 19:14 Resp 17 09/15/17 20:24 BP 132/80 09/15/17 19:14 Pulse Ox 92 09/15/17 20:24 Results - Laboratory Findings CBC and BMP: 09/15/17 02:37 09/15/17 02:37 ABG ABG pH 7.42 pH Units (7.32-7.45) 09/13/17 15:40 ABG pCO2 55 mmHg (35-45) H 09/13/17 15:40 ABG pO2 68 mmHg (85-104) L 09/13/17 15:40 ABG O2 Saturation 93 % (95-98) L 09/13/17 15:40 Abnormal lab findings: Abnormal lab results RBC 3.74 M/mcL (3.82-4.97) L 09/15/17 02:37 Hgb 11.3 g/dL (11.5-15.4) L 09/15/17 02:37 Hct 34.5 % (35.3-44.9) L 09/15/17 02:37 Reactive Lymphocytes Present (Not Present) A 09/13/17 02:15 Toxic Granulation Present (Not Present) A 09/13/17 02:15 ABG pCO2 55 mmHg (35-45) H 09/13/17 15:40 ABG pO2 68 mmHg (85-104) L 09/13/17 15:40 ABG HCO3 36 mEq/L (21-27) H 09/13/17 15:40 ABG Total CO2 37 mEq/L (20-26) H 09/13/17 15:40 ABG O2 Saturation 93 % (95-98) L 09/13/17 15:40 ABG Base Excess 10 mEq/L (-2 to 3) H 09/13/17 15:40 Carbon Dioxide 32 mEq/L (19-29) H 09/15/17 02:37 Glucose 230 mg/dL (70-99) H 09/15/17 02:37 POC Glucose 205 (58-89) H 09/14/17 23:12 Albumin 3.2 g/dL (3.5-5.0) L 09/13/17 11:47 Albumin/Globulin Ratio 0.9 (1.1-2.2) L 09/13/17 11:47 - Clinical Findings Intake & Output: Intake & Output 09/15/17 09/15/17 09/15/17 07:59 15:59 23:59 Intake Total 240 / 240 600 / 600 480 / 480 Output Total 0 / 0 Balance 240 / 240 600 / 600 480 / 480 - Attending Attestation I saw the patient with the resident agree with History and Physical exam findings. Labs and Radiology were reviewed Had a overnight oximetry on 2 litres DYNAMITE PACKING MACHINE FEEDER: Patient is conscious oriented x3 following commands , patient is feeling lot better NECK : No JVD appreciated Pulmonary : Patient is hypoxic and hypercarbic due to COPD exacerbation to continue bronchodilators ,Steroids and antibiotics . Patient qualified for BIPAP with ABG criteria PaCO2 being 55 , social work to do BIPAP qualification send home total 7 days of antibiotics , 14 day steroid taper , since she has high risk for readmission will not discharge until she get the home BIPAP . To continue BIPAP HS 12 Cardiac : Hemodynamically stable Nutrition/GI: Patient is on diabetic diet . Renal : Labs and out put reviewed Heme onc : No acute or chronic issues ID : To continue for total of 7 days of antibiotics Endo: Will to continue insulin sliding scale when going home put her back on Metformin Musculo skeletal / skin issues : No acute issues Disposition : Transfer to [facility] today Code status: Full Code Family/POA: Sister .
[2017-09-15] MEDS: ALPRAZolam 0.5 MG TABLET PO PRN ×2 (12:03→21:07)
[2017-09-15] MEDS ORDERED: ALPRAZolam 0.5 MG TABLET PO PRN (14:21)
[2017-09-15] MEDS: Mirtazapine 15 MG TABLET PO SCH (21:07)
[2017-09-16] MEDS: Insulin LISPRO 300 UNITS/3 ML VIAL SQ SCH ×4 (00:26→17:05)
[2017-09-16] MEDS: Ipratropium/Albuterol Neb 3 ML IH SCH ×6 (03:44→23:18)
[2017-09-16] MEDS: Famotidine 20 MG/2 ML VIAL IVP SCH ×2 (06:44→17:05)
[2017-09-16] MEDS: MethylPREDNISolone 40 MG/ML VIAL IVP SCH ×2 (06:44→17:05)
[2017-09-16] MEDS: *HR* Heparin 5,000 UNIT/ML VIAL SQ SCH ×2 (06:46→17:05)
[2017-09-16] MEDS: Budesonide/Formoterol 160/4.5 MDI IH SCH ×2 (07:42→19:59)
--- NOTE | 2017-09-16 08:25 | Internal Med Progress Note ---
Date of Encounter: 09/16/17 Time of Encounter: 08:22 - Assessment and plan (1) Acute and chronic respiratory failure ([id number]) Current Visit: Yes Status: Acute Qualifiers: Respiratory failure complication: hypercapnia Qualified Code(s): J96.22 - Acute and chronic respiratory failure with hypercapnia (2) COPD exacerbation Current Visit: Yes Status: Acute (3) Diabetes Current Visit: Yes Status: Chronic Qualifiers: Diabetes mellitus type: type 2 Diabetes mellitus complication status: without complication Diabetes mellitus custodial insulin use: without intermediate accountant use Qualified Code(s): E11.9 - Type 2 diabetes mellitus without complications (4) Severe protein-calorie malnutrition Current Visit: No Status: Chronic - Subjective Interval history: ICU transfer. Patient was recently admitted and got readmitted seemed today as she was discharged with acute hypercapnic respiratory failure. On admission she had respiratory acidosis with elevated C O2. She was admitted in ICU and marine electrician apprentice was involved. She was put on BiPAP and that helped and is stabilizing the condition. Currently she is on Zosyn nebulizer and steroids. Deputy Clerk Of [address] has indicated that she may benefit with night BiPAP and will conditioning room worker to get her qualified for home BiPAP. - Constitutional Vitals: Temp Pulse Resp BP Pulse Ox 97.0 F L 64 16 115/74 98 09/16/17 03:44 09/16/17 03:44 09/16/17 07:44 09/16/17 03:44 09/16/17 07:44 - Head Head exam: Present: atraumatic, normocephalic - Eye Eye exam: Present: PERRL, conjuntiva pink, sclera anicteric Pupils: Present: PERRL - Neck Neck exam general surgery: Present: supple, trachea midline. Absent: lymphadenopathy - Respiratory Respiratory exam: Present: CTAB. Absent: accessory muscle use, rales, rhonchi, wheezes - Cardiovascular Cardiovascular exam: Present: RRR, +S1, +S2. Absent: diastolic murmur, gallop, rubs, systolic murmur - GI/Abdominal GI/Abdominal exam: Present: normal bowel sounds, soft, no peritoneal signs. Absent: distended, tenderness - Extremities Exam Extremities exam: Present: warm, radial pulses palpable and symmetrical. Absent : calf tenderness, cyanotic, pedal edema - Neurological Exam Neurological exam: Present: CN II-XII intact, oriented X3, no focal deficits. Absent: pronater drift, facial droop, speech deficit - Skin Skin exam: Present: dry, intact Internal Medicine: Result - Labs CBC & Chem 7: 09/15/17 02:37 09/15/17 02:37 - ABG Interpretation ABG results: ABG ABG pH 7.42 pH Units (7.32-7.45) 09/13/17 15:40 ABG pCO2 55 mmHg (35-45) H 09/13/17 15:40 ABG pO2 68 mmHg (85-104) L 09/13/17 15:40 ABG O2 Saturation 93 % (95-98) L 09/13/17 15:40 - VTE Documentation of Mechanical Device: Intermittent pneumatic compression device Consult Discharge Plan - Plan Referrals: Benjamin Thayer MD [Primary Care Provider] - (web request sent on 09/16/17)
[2017-09-16] MEDS: levoFLOXacin 500 MG TABLET PO SCH (08:51)
[2017-09-16] MEDS: ALPRAZolam 0.5 MG TABLET PO PRN ×2 (12:09→20:06)
[2017-09-16] MEDS: Mirtazapine 15 MG TABLET PO SCH (20:06)
[2017-09-17] MEDS: Insulin LISPRO 300 UNITS/3 ML VIAL SQ SCH ×5 (01:02→16:54)
[2017-09-17] MEDS: Ipratropium/Albuterol Neb 3 ML IH SCH ×4 (03:35→15:33)
[2017-09-17] MEDS: *HR* Heparin 5,000 UNIT/ML VIAL SQ SCH (05:45)
[2017-09-17] MEDS: MethylPREDNISolone 40 MG/ML VIAL IVP SCH (05:45)
[2017-09-17] MEDS: Famotidine 20 MG/2 ML VIAL IVP SCH (05:45)
[2017-09-17] MEDS: Budesonide/Formoterol 160/4.5 MDI IH SCH (07:46)
[2017-09-17] MEDS ORDERED: *HR* Dextrose 50 % in Water (Syg) 50 ML SYRINGE IVP PRN (08:23)
[2017-09-17] MEDS ORDERED: Dextrose Gel 15 GM PO PRN ×2 (08:23)
[2017-09-17] MEDS ORDERED: D5% in Water 1,000 ML IVC PRN (08:23)
--- NOTE | 2017-09-17 08:37 | Discharge Summary ---
Date of Encounter: 09/17/17 Time of Encounter: 08:33 - Discharge Diagnosis (1) Acute and chronic respiratory failure ([id number]-[id number]) Priority: Primary Status: Acute Qualifiers: Respiratory failure complication: hypercapnia Qualified Code(s): J96.22 - Acute and chronic respiratory failure with hypercapnia (2) COPD exacerbation Priority: Primary Status: Acute (3) Diabetes Priority: Secondary Status: Chronic Qualifiers: Diabetes mellitus type: type 2 Diabetes mellitus complication status: without complication Diabetes mellitus half-way insulin use: without assistant terminal manager use Qualified Code(s): E11.9 - Type 2 diabetes mellitus without complications (4) Severe protein-calorie malnutrition Priority: Secondary Status: Chronic - Discharge Medications Prescriptions: Ipratropium/Albuterol Neb [Duoneb] 3 ml IH Q6HR #120 inhsol Dexamethasone [Decadron] 4 mg PO BID #14 tab levoFLOXacin [Levaquin] 500 mg PO DAILY #7 tablet Home Medications: Citalopram Hydrobromide [Celexa] 40 mg PO 2100 02/14/16 [History] traZODone [TraZODone] 50 - 100 mg PO HS #0 02/14/16 [History] Metformin HCl [Metformin HCl ER] 500 mg PO QPM 03/27/17 [History] Mirtazapine [Remeron] 30 mg PO HS 03/27/17 [History] ALPRAZolam [Xanax 0.5 MG Tablet] 0.5 mg PO BID 08/28/17 [History] Budesonide/Formoterol 160/4.5 [Symbicort 160/4.5] 1 puff IH BIDR 08/28/17 [ History] Albuterol Sulfate [Albuterol Inhaler] 2 puff IH Q4HR PRN #1 inhaler 09/12/17 [Rx ] DiphenhydraMINE [Benadryl] 25 mg PO Q6HR #40 capsule 09/12/17 [Rx] Famotidine [Pepcid] 20 mg PO BID #20 tablet 09/12/17 [Rx] Dexamethasone [Decadron] 4 mg PO BID #14 tab 09/17/17 [Rx] Ipratropium/Albuterol Neb [Duoneb] 3 ml IH Q6HR #120 inhsol 09/17/17 [Rx] levoFLOXacin [Levaquin] 500 mg PO DAILY #7 tablet 09/17/17 [Rx] Allergies/Adverse Reactions: 3 Allergy/AdvReac Type Severity Reaction Status Date / Time prednisone Allergy Redness of Verified 09/13/17 02:09 Skin sulfamethoxazole AdvReac Rash Verified 09/13/17 02:09 [From Bactrim] trimethoprim [From Bactrim] AdvReac Rash Verified 09/13/17 02:09 Date of admission: 09/13/17 05:14 Primary care physician: Benjamin Thayer MD Consults: 09/13/17 05:42 Consult to Pulmonology [CONS] Routine Consulting Provider: [facility] Reason for Consult: hypercapnic respiratory failure, COPD exacerbation Call Completed: No 09/13/17 08:07 Consult to Automotive Refinisher [CONS] Routine Reason for SW Consult: Unable to afford meds 09/15/17 10:55 Consult to Automotive Refinisher [CONS] Routine Reason for SW Consult: requires home BiPAP Discharging clinician: Sean Lacy Anticipated date of discharge: 09/17/17 - Patient Status Disposition: Home, Self-Care Condition: Fair - Discharge Instructions Follow Up With: Benjamin Thayer MD [Primary Care Provider] - (web request sent on 09/16/17) - Diet and Activity Activity: resume usual activities as tolerated Diet: advance to your usual diet Hospital course: Ms. Sun is a 51 year old female admitted in ICU for acute on chronic respiratory failure secondary to COPD exacerbation.. Patient was recently admitted and got readmitted seemed today as she was discharged with acute hypercapnic respiratory failure. On admission she had respiratory acidosis with elevated C O2. She was admitted in ICU and financial institution treasurer was involved. She was put on BiPAP and that helped and is stabilizing the condition. Currently she is on Zosyn nebulizer and steroids. Head Rigger has indicated that she may benefit with night BiPAP and will motion picture set up worker to get her qualified for home BiPAP. Patient says she developed redness with prednisone. She will be tried on Decadron as she tolerated Solu-Medrol and hospital and will see if she remains as stable for next few hours and if so then she can be discharged home. - Time Spent with Patient Total time spent providing and/or coordinating discharge services: Greater than 30 minutes - Constitutional Vitals: Temp Pulse Resp BP Pulse Ox 97.8 F 75 18 137/77 90 09/17/17 06:52 09/17/17 06:52 09/17/17 07:46 09/17/17 06:52 09/17/17 07:46 - Head Head exam: Present: atraumatic, normocephalic - Eye Eye exam: Present: PERRL, conjuntiva pink, sclera anicteric Pupils: Present: PERRL - Neck Neck exam general surgery: Present: supple, trachea midline. Absent: lymphadenopathy - Respiratory Respiratory exam: Present: CTAB, wheezes. Absent: accessory muscle use, rales, rhonchi Additional comments: Scattered wheezing - Cardiovascular Cardiovascular exam: Present: RRR, +S1, +S2. Absent: diastolic murmur, gallop, rubs, systolic murmur - GI/Abdominal GI/Abdominal exam: Present: normal bowel sounds, soft, no peritoneal signs. Absent: distended, tenderness - Extremities Exam Extremities exam: Present: warm, radial pulses palpable and symmetrical. Absent : calf tenderness, cyanotic, pedal edema - Neurological Exam Neurological exam: Present: CN II-XII intact, oriented X3, no focal deficits. Absent: pronater drift, facial droop, speech deficit - Skin Skin exam: Present: dry, intact - VTE Documentation of Mechanical Device: Intermittent pneumatic compression device
[2017-09-17] MEDS: levoFLOXacin 500 MG TABLET PO SCH (08:57)
[2017-09-17] MEDS: ALPRAZolam 0.5 MG TABLET PO PRN ×2 (09:03→16:53)
[2017-09-17 11:11] VITALS: BP 128/75
[2017-09-17] MEDS ORDERED: Famotidine 20 MG TABLET PO SCH (16:30)
[2017-09-17] MEDS ORDERED: Insulin LISPRO 300 UNITS/3 ML VIAL SQ SCH (21:00)
== END 2017-09-17 17:00 | disposition home or self-care (01) | DRG 189 ==
LOC: EMEROO 02:03 → 2NNU 02:03 → ICNU 05:05 → 2ANU 09-15 18:06
PROVIDERS: ADMIT Hospitalist; ATTEND Internal Medicine

== ENCOUNTER 2019-03-04 17:35 | Observation (INO) ==
[2019-03-04] MEDS ORDERED: Ipratropium/Albuterol Neb 3 ML IH ONE (18:16)
[2019-03-04] MEDS ORDERED: predniSONE 20 MG TABLET PO ONE (18:17)
--- NOTE | 2019-03-04 18:19 | Emergency Department Note ---
Disposition Clinical Impression: Dyspnea, COPD with acute exacerbation Disposition: Still a Patient Condition: Fair Referrals: Benjamin Thayer MD [Primary Care Provider] - Forms: ED Satisfaction Letter General Adult HPI - General Chief complaint: ED Shortness of Breath/Dyspnea Stated complaint: ZA,COPD Time Seen by Provider: 03/04/19 18:10 Source: patient Limitations: no limitations Nursing Notes Reviewed: Yes Vital Signs Reviewed: Yes - History of Present Illness Pain Scale: 0 - Related Data Home Medications Medication Instructions Recorded Confirmed Citalopram Hydrobromide [Celexa] 40 mg PO 2100 02/14/16 09/13/17 traZODone [TraZODone] 50 - 100 mg PO HS #0 02/14/16 09/13/17 Metformin HCl [Metformin ER 500 mg PO QPM 03/27/17 09/13/17 Gastric] Mirtazapine [Remeron] 30 mg PO HS 03/27/17 09/13/17 ALPRAZolam [Xanax 0.5 MG Tablet] 0.5 mg PO BID 08/28/17 09/13/17 Budesonide/Formoterol 160/4.5 1 puff IH BIDR 08/28/17 09/13/17 [Symbicort 160/4.5] Previous Rx's Medication Instructions Recorded Albuterol Sulfate [Albuterol 2 puff IH Q4HR PRN #1 inhaler 09/12/17 Inhaler] DiphenhydraMINE [Benadryl] 25 mg PO Q6HR #40 capsule 09/12/17 Famotidine [Pepcid] 20 mg PO BID #20 tablet 09/12/17 Dexamethasone [Decadron] 4 mg PO BID #14 tab 09/17/17 Ipratropium/Albuterol Neb [Duoneb] 3 ml IH Q6HR #120 inhsol 09/17/17 levoFLOXacin [Levaquin] 500 mg PO DAILY #7 tablet 09/17/17 Allergies Allergy/AdvReac Type Severity Reaction Status Date / Time prednisone Allergy Redness of Verified 09/13/17 02:09 Skin sulfamethoxazole AdvReac Rash Verified 09/13/17 02:09 [From Bactrim] trimethoprim [From Bactrim] AdvReac Rash Verified 09/13/17 02:09 Past Medical History - Past Medical History Medical history: Reports: COPD, diabetes, other Surgical history: Reports: appendectomy, Psychiatric history: Reports: anxiety, depression - Social History Smoking Status: Current every day smoker Smokeless Tobacco Status: No Alcohol use: Reports: none Drug use: Reports: none Physical Exam - General Limitations: no limitations General appearance: alert, in no apparent distress Course Vital Signs Temperature 97.9 F 03/04/19 17:47 Pulse Rate 116 03/04/19 17:47 Respiratory Rate 20 03/04/19 17:47 Blood Pressure 116/66 03/04/19 17:47 O2 Sat by Pulse Oximetry 86 03/04/19 17:47 Temperature 97.9 F 03/04/19 17:47 Pulse Rate 107 03/04/19 19:00 Respiratory Rate 16 03/04/19 19:00 Blood Pressure 129/83 03/04/19 19:00 O2 Sat by Pulse Oximetry 93 03/04/19 19:00 Oxygen Delivery Oxygen Delivery Room Air Medical Decision Making - MDM Narrative Medical decision making narrative: Chest X-Ray 03/04/19 17:50 IMPRESSION: No acute process. D/ / Dion Mills MD / Dion Mills MD Interpreting Provider: Dion Mills MD 2010 hrs.: Patient's feeling somewhat better but sewing some wheezing and if she gets up to move about she gets short of breath we will bring her into the hospital acute exacerbation of COPD. She is in agreement with plan. - Lab Data Result diagrams: 03/04/19 18:32 03/04/19 18:32 Lab Results 03/04/19 03/04/19 Range/Units 18:32 18:32 WBC 11.5 H (4.3-11.1) K/mcL RBC 4.67 (3.82-4.97) M/mcL Hgb 14.0 (11.5-15.4) g/dL Hct 43.7 (35.3-44.9) % MCV 93.6 (83.0-100.0) fL MCH 30.0 (28.0-33.3) pg MCHC 32.0 (31.6-35.5) g/dL RDW 13.2 (11.5-14.5) % Plt Count 240 (140-400) K/mcL MPV 10.1 (9.4-12.4) fL Immature Gran % 0.4 (0-4) % Seg Neutrophils % 74.1 % Lymphocytes % 15.4 % Monocytes % 8.2 % Eosinophils % 1.3 % Basophils % 0.6 % Neutrophils # 8.5 (1.6-8.9) K/mcL Lymphocytes # 1.8 (0.6-4.6) K/mcL Monocytes # 0.9 (0.0-1.3) K/mcL Eosinophils # 0.2 (0.0-0.6) K/mcL Basophils # 0.1 (0.0-0.2) K/mcL Sodium 142 (136-145) mEq/L Potassium 3.4 L (3.5-5.1) mEq/L Chloride 102 (98-107) mEq/L Carbon Dioxide 30 H (23-29) mEq/L BUN 10 (6-20) mg/dL Creatinine 0.59 L (0.60-1.20) mg/dL Est GFR ( Amer) > 60 (> 60) Est GFR (Non-Af Amer) > 60 (> 60) BUN/Creatinine Ratio 17 (6-26) Glucose 229 H (70-105) mg/dL Calculated Osmolality 300 (280-300) Calcium 9.2 (8.6-10.3) mg/dL Attestation Statement - Attestation Attestation: This documentation is done with the assistance of Dragon dictation. Despite efforts made to ensure accuracy, there may be inaccuracies in [employer] or spelling and typographical errors. I examined this patient and my medical decision-making was reviewed with the Resident Physician. I agree with the documented findings, disposition and treatment plan as described except to the extent set forth below. Patient seen and evaluated on arrival with Dr. Duarte and myself, I agree with his evaluation and management plan, I supervised care the patient's stay. Patient presents today with COPD exacerbation she said started over the weekend. Just finished a course of steroids she thought she finished a course anabolic stable can remember what it was. Has not had a pneumonia in 2 years. She has been coughing been nonproductive but she says she feels like she has cannot get it up. No chest pain no fevers. And ago head and started on breathing treatments here check labs chest x-ray and reassess. She is in agreement with plan.
[2019-03-04 18:52] LABS: Basophils # 0.1 K/mcL (0.0-0.2); Basophils % 0.6 %; Eosinophils # 0.2 K/mcL (0.0-0.6); Eosinophils % 1.3 %; Hematocrit 43.7 % (35.3-44.9); Immature Granulocytes % 0.4 % (0-4); Lymphocytes # 1.8 K/mcL (0.6-4.6); Lymphocytes % 15.4 %; Mean Corpuscular Volume 93.6 fL (83.0-100.0); Mean Platelet Volume 10.1 fL (9.4-12.4); Monocytes # 0.9 K/mcL (0.0-1.3); Monocytes % 8.2 %; Neutrophils # 8.5 K/mcL (1.6-8.9); Platelet Count 240 K/mcL (140-400); Red Blood Count 4.67 M/mcL (3.82-4.97); Red Cell Distribution Width 13.2 % (11.5-14.5); Segmented Neutrophils % 74.1 %
--- NOTE | 2019-03-04 19:03 | Emergency Department Note ---
Disposition Clinical Impression: COPD with acute exacerbation Dyspnea Qualifiers: Dyspnea type: shortness of breath Qualified Code(s): R06.02 - Shortness of breath Disposition: Admitted As Inpatient Condition: Fair Referrals: Benjamin Thayer MD [Primary Care Provider] - Forms: ED Satisfaction Letter Time of Disposition: 20:17 SOB HPI - General Chief Complaint: ED Shortness of Breath/Dyspnea Stated Complaint: ZA,COPD Time Seen by Provider: 03/04/19 18:10 Source: patient Limitations: no limitations Nursing Notes Reviewed: Yes Vital Signs Reviewed: Yes - History of Present Illness 53yo female presents from home for evaluation of dyspnea. progressive over the past 2-3 days, notably worse today. Patient's daughter is bedside and noted patient was sleepy and breathing hard at home with pulse ox 65% (waveform unknown). Patient has no chronic cough. She has a frequent dry cough. Patient has a history of COPD with no oxygen while awake. BiPAP at night for obstructive sleep apnea. Patient is a current every day smoker. When her COPD was first diagnosed she was heavily exposed to fiberglass dust without protection as well. PMH: DM II on metformin. COPD. Habits: current everyday smoker. ROS: Positive: Cough, dyspnea Negative: Fever, chills, nausea, vomiting, chest pains, palpitations, dyspnea, diaphoresis, productive cough - Related Data Home Medications Medication Instructions Recorded Confirmed Citalopram Hydrobromide [Celexa] 40 mg PO 2100 02/14/16 09/13/17 traZODone [TraZODone] 50 - 100 mg PO HS #0 02/14/16 09/13/17 Metformin HCl [Metformin ER 500 mg PO QPM 03/27/17 09/13/17 Gastric] Mirtazapine [Remeron] 30 mg PO HS 03/27/17 09/13/17 ALPRAZolam [Xanax 0.5 MG Tablet] 0.5 mg PO BID 08/28/17 09/13/17 Budesonide/Formoterol 160/4.5 1 puff IH BIDR 08/28/17 09/13/17 [Symbicort 160/4.5] Previous Rx's Medication Instructions Recorded Albuterol Sulfate [Albuterol 2 puff IH Q4HR PRN #1 inhaler 09/12/17 Inhaler] DiphenhydraMINE [Benadryl] 25 mg PO Q6HR #40 capsule 09/12/17 Famotidine [Pepcid] 20 mg PO BID #20 tablet 09/12/17 Dexamethasone [Decadron] 4 mg PO BID #14 tab 09/17/17 Ipratropium/Albuterol Neb [Duoneb] 3 ml IH Q6HR #120 inhsol 09/17/17 levoFLOXacin [Levaquin] 500 mg PO DAILY #7 tablet 09/17/17 Allergies Allergy/AdvReac Type Severity Reaction Status Date / Time prednisone Allergy Redness of Verified 09/13/17 02:09 Skin sulfamethoxazole AdvReac Rash Verified 09/13/17 02:09 [From Bactrim] trimethoprim [From Bactrim] AdvReac Rash Verified 09/13/17 02:09 All systems ED: reviewed and negative except as stated. Review of Systems: As Per HPI Past Medical History - Past Medical History Medical history: Reports: COPD, diabetes, other Surgical history: Reports: appendectomy, Psychiatric history: Reports: anxiety, depression - Social History Smoking Status: Current every day smoker Smokeless Tobacco Status: No Alcohol use: Reports: none Drug use: Reports: none Physical Exam Vital Signs Reviewed General: Patient is alert, oriented, and in no acute distress. Head: atraumatic, normocephalic Eye: normal appearance, PERRL, EOMI, no scleral icterus, no conjunctival injection ENT: mucous membranes moist, normal external ear exam Neck: normal inspection, trachea midline, full ROM Chest: normal inspection, symmetric chest rise Respiratory: Good respiratory effort. Bilateral breath sounds are equal bilaterally and quiet without wheezing, crackles, or rhonchi. Cardiovascular: Regular rate and rhythm. No clicks, rubs, gallops, or murmors. Normal heart sounds. Abdomen: Bowel sounds present normoactive. Abdomen is soft, nondistended, and nontender. No guarding or rebound. No organomegaly noted. Musculoskeletal: Spontaneously moving all extremities. Skin: warm, dry, intact. Neuro: GCS 15. No focal neurologic deficits observed. Psych: Patient's affect is appropriate for situation. - General Limitations: no limitations General appearance: alert, in no apparent distress Course Course Narrative: Clinical suspicion for some history and physical is acute exacerbation of COPD. Chest x-ray. EKG. Triple dose of DuoNeb's. Patient is saturating 95% on 1 L nasal cannula. Strongly suspects she will need admission for continued pulmonary support. EKG dated 03/04/19 at 17:54 interpreted as sinus tachycardia with a rate of 111. VA 132, QRS 74, QTC 372. Normal axis. Nonspecific ST T changes. Polymorphic P waves consistent with pulmonary disease. Compared to previous EKG dated 13 September 2017 showing no acute ischemic changes in comparison. At rest, patient is oxygenating 95% on room air after 3 breathing treatments of DuoNeb's. Her lung sounds were from bilaterally quite to now bilateral faint wheeze. She continues to have mild accessory muscle usage. Patient will very likely fail walk test in the ED on her baseline room air. She is agreeable to admission for continued pulmonary management. I discussed the above the [facility], Dr. Das, who agrees to accept the patient for acute exacerbation of COPD. Vital Signs Temperature 97.9 F 03/04/19 17:47 Pulse Rate 116 03/04/19 17:47 Respiratory Rate 20 03/04/19 17:47 Blood Pressure 116/66 03/04/19 17:47 O2 Sat by Pulse Oximetry 86 03/04/19 17:47 Temperature 97.9 F 03/04/19 17:47 Pulse Rate 107 03/04/19 19:00 Respiratory Rate 16 03/04/19 19:00 Blood Pressure 129/83 03/04/19 19:00 O2 Sat by Pulse Oximetry 93 03/04/19 19:00 Oxygen Delivery Oxygen Delivery Room Air Shortness of Breath/Dyspnea - Lab Data Result diagrams: 03/04/19 18:32 03/04/19 18:32 Lab Results 03/04/19 03/04/19 Range/Units 18:32 18:32 WBC 11.5 H (4.3-11.1) K/mcL RBC 4.67 (3.82-4.97) M/mcL Hgb 14.0 (11.5-15.4) g/dL Hct 43.7 (35.3-44.9) % MCV 93.6 (83.0-100.0) fL MCH 30.0 (28.0-33.3) pg MCHC 32.0 (31.6-35.5) g/dL RDW 13.2 (11.5-14.5) % Plt Count 240 (140-400) K/mcL MPV 10.1 (9.4-12.4) fL Immature Gran % 0.4 (0-4) % Seg Neutrophils % 74.1 % Lymphocytes % 15.4 % Monocytes % 8.2 % Eosinophils % 1.3 % Basophils % 0.6 % Neutrophils # 8.5 (1.6-8.9) K/mcL Lymphocytes # 1.8 (0.6-4.6) K/mcL Monocytes # 0.9 (0.0-1.3) K/mcL Eosinophils # 0.2 (0.0-0.6) K/mcL Basophils # 0.1 (0.0-0.2) K/mcL Sodium 142 (136-145) mEq/L Potassium 3.4 L (3.5-5.1) mEq/L Chloride 102 (98-107) mEq/L Carbon Dioxide 30 H (23-29) mEq/L BUN 10 (6-20) mg/dL Creatinine 0.59 L (0.60-1.20) mg/dL Est GFR ( Amer) > 60 (> 60) Est GFR (Non-Af Amer) > 60 (> 60) BUN/Creatinine Ratio 17 (6-26) Glucose 229 H (70-105) mg/dL Calculated Osmolality 300 (280-300) Calcium 9.2 (8.6-10.3) mg/dL
[2019-03-04 19:15] LABS: BUN/Creatinine Ratio 17 (6-26); Blood Urea Nitrogen 10 mg/dL (6-20); Calcium 9.2 mg/dL (8.6-10.3); Carbon Dioxide 30 mEq/L (23-29); Chloride 102 mEq/L (98-107); Glucose 229 mg/dL (70-105); Osmolality,Calculated 300 (280-300); Potassium 3.4 mEq/L (3.5-5.1); Sodium 142 mEq/L (136-145); eGFR For Non-African Americans > 60 (> 60)
[2019-03-04] MEDS: Nicotine 14 MG PATCH.TD24 TD SCH (23:47)
[2019-03-05] MEDS ORDERED: Acetaminophen 325 MG TABLET PO PRN (01:22)
[2019-03-05] MEDS ORDERED: Albuterol 2.5 MG/3 ML NEBULIZER IH PRN (01:22)
[2019-03-05] MEDS ORDERED: Naloxone 0.4 MG/ML INJ IVP PRN (01:22)
[2019-03-05] MEDS ORDERED: *HR* Dextrose 50 % in Water (Syg) 50 ML SYRINGE IVP PRN ×2 (01:27→21:56)
[2019-03-05] MEDS ORDERED: Dextrose Gel 15 GM/37.5 ML TUBE PO PRN ×4 (01:27→21:56)
[2019-03-05] MEDS ORDERED: D5% in Water 1,000 ML IVC PRN ×2 (01:27→21:56)
[2019-03-05] MEDS: 0.9 % Sodium Chloride w KCl 20 MEQ/1,000 ML MLS IVC SCH ×2 (01:58→15:37)
[2019-03-05] MEDS: Levofloxacin 500 MG/100 ML 500 MG/100 ML BAG IVPB SCH (01:58)
[2019-03-05] MEDS: Gabapentin 100 MG CAPSULE PO SCH ×2 (01:59→19:52)
[2019-03-05] MEDS: Mirtazapine 15 MG TABLET PO SCH ×2 (01:59→19:52)
[2019-03-05 03:46] LABS: Basophils % 0.5 %; Hematocrit 43.3 % (35.3-44.9); Hemoglobin 13.8 g/dL (11.5-15.4); Immature Granulocytes % 0.4 % (0-4); Lymphocytes # 0.4 K/mcL (0.6-4.6); Lymphocytes % 4.7 %; Mean Corpuscular HGB Conc 31.9 g/dL (31.6-35.5); Mean Corpuscular Volume 94.1 fL (83.0-100.0); Mean Platelet Volume 10.1 fL (9.4-12.4); Monocytes % 0.5 %; Neutrophils # 7.8 K/mcL (1.6-8.9); Platelet Count 238 K/mcL (140-400); Segmented Neutrophils % 93.9 %
[2019-03-05 03:57] LABS: Estimated Average Glucose 123 mg/dl; Hemoglobin A1C 5.9 %
[2019-03-05] MEDS: Ipratropium/Albuterol Neb 3 ML IH SCH ×5 (03:59→20:17)
[2019-03-05 04:04] LABS: Alanine Aminotransferase 19 Units/L (7-52); Albumin 4.2 g/dL (3.5-5.7); Albumin/Globulin Ratio 1.6 (1.1-2.2); Alkaline Phosphatase 63 Units/L (34-104); Aspartate Amino Transferase 11 Units/L (13-39); BUN/Creatinine Ratio 19 (6-26); Bilirubin,Total 0.3 mg/dL (0.3-1.0); Blood Urea Nitrogen 11 mg/dL (6-20); Calcium 9.4 mg/dL (8.6-10.3); Carbon Dioxide 31 mEq/L (23-29); Chloride 101 mEq/L (98-107); Globulin 2.7 g/dL (2.4-3.5); Glucose 263 mg/dL (70-105); Magnesium 2.3 mg/dL (1.6-2.6); Osmolality,Calculated 297 (280-300); Potassium 4.3 mEq/L (3.5-5.1); Sodium 139 mEq/L (136-145); Total Protein 6.9 g/dL (6.4-8.9); eGFR For Non-African Americans > 60 (> 60)
--- NOTE | 2019-03-05 04:14 | Internal Med History&Physical ---
Date of Encounter: 03/05/19 Time of Encounter: 01:00 Internal Medicine - H&P: HPI Chief complaint: SOB, cough, wheeze Admitted From: Emergency Dept Plans for Post Hospital Care: Home History of present illness: Ms. Sun is a 53 year old female who presents with several day history of coughing, wheezing, and profound shortness of breath. Patient has severe COPD and continues to smoke nonetheless. She wears BiPAP at night. She has been using her home aerosols without relief. She therefore came to ER for evalua tion. Workup in the ER revealed patient to have significant wheezing and some moderate respiratory distress. She was given triple DuoNeb aerosol with minimal improvement. She was therefore admitted to hospitalist service. Upon my assessment of the patient, patient states she feels only slightly better. She is audibly wheezing, tachypneic, and exhibiting some signs of increased work of breathing. She denies any fevers, chills, or night sweats. She has had some ill contacts, however. She denies any vomiting or diarrhea. Oral intake has been poor. She has lost a few pounds unintentionally as well due to poor appetite and inability to eat due to her respiratory distress. Past Med Surg Social Fam HX - Past Medical History Attestation: Yes The following information was validated with the patient. Source: patient, old records reviewed Medical history: COPD, diabetes, other Additional medical history: ephysema Psychiatric history: anxiety, depression - Past Surgical History Surgical History: appendectomy, - Social History Smoking Status: Current every day smoker Packs per day: 5 cigs Smokeless Tobacco Status: No Alcohol use: none Drug use: none Current living situation: Home, With Family Activity Level: Independent ambulation Recent Out of Country Travel Within the Last 8 Weeks: No - Family History Mother Living Status: Age at : 74 Cause of : PNU, Brain bleed fall Hx Family Respiratory Disorders: Yes Hx Family Cancer: Yes (Breast with L-masectomy) Hx Family Endocrine Disorder: Yes (DM) Hx Family Neurologic Disorders: Yes (stroke) Hx Family HEENT Disorders: Yes (L-eye blind) Father Living Status: Age at : 84 Cause of : heart attack Hx Family Cardiac Disorders: Yes (SD) Hx Family Respiratory Disorders: Yes (COPD) Hx Family Cancer: Yes (Lung) Hx Family Endocrine Disorder: Yes (diabetes) Internal Medicine - H&P: Meds Metformin HCl [Metformin ER Gastric] 500 mg PO QPM 03/27/17 [History] Mirtazapine [Remeron] 30 mg PO HS 03/27/17 [History] Budesonide/Formoterol 160/4.5 [Symbicort 160/4.5] 2 puff IH BIDR 08/28/17 [History] Albuterol Sulfate [Albuterol Inhaler] 2 puff IH Q4HR PRN #1 inhaler 09/12/17 [Rx] Ipratropium/Albuterol Neb [Duoneb] 3 ml IH Q6HR #120 inhsol 09/17/17 [Rx] ALPRAZolam [Xanax 1 MG Tablet] 0.5 mg PO DAILY@1500 03/04/19 [History] ALPRAZolam [Xanax 1 MG Tablet] 1 mg PO QAM AND QHS 03/04/19 [History] Citalopram [CeleXA] 20 mg PO DAILY 03/04/19 [History] Gabapentin [Neurontin] 200 mg PO HS 03/04/19 [History] Multivit-Min/Iron/Folic/Lutein [Centrum Silver Women Tablet] 1 each PO DAILY 03/04/19 [History] Quetiapine Fumarate [SEROquel] 50 mg PO HS 03/04/19 [History] Allergy/AdvReac Type Severity Reaction Status Date / Time prednisone Allergy Redness of Verified 09/13/17 02:09 Skin sulfamethoxazole AdvReac Rash Verified 09/13/17 02:09 [From Bactrim] trimethoprim [From Bactrim] AdvReac Rash Verified 09/13/17 02:09 - Constitutional Constitutional: fatigue, weight loss, no chills, no fever(s) - EENT Eyes: no blurry vision, no change in vision Ears: no ear pain, no tinnitus Nose, mouth and throat: no nasal congestion, no sinus pressure, no sore throat - Cardiovascular Cardiovascular ROS IM: dyspnea, dyspnea on exertion, no chest pain, no edema, no lightheadedness, no syncope - Respiratory Respiratory: cough, dyspnea, dyspnea on exertion, wheezing, chest congestion, no hemoptysis, no excessive phlegm production, no change in phlegm color, no pain with cough - Gastrointestinal Gastrointestinal: nausea, no abdominal pain, no diarrhea, no hematemesis, no hematochezia, no melena, no vomiting - Genitourinary Genitourinary: no dysuria, no flank pain, no hematuria - Musculoskeletal Musculoskeletal ROS IM: no arthralgias, no back pain - Integumentary Integumentary IM: no rash, no jaundice - Neurological Neurological ROS: no disequilibrium, no dizziness, no focal weakness, no frequent falls, no headache(s), no paresthesias - Psychiatric Psychiatric: no anxiety, no depression - Endocrine Endocrine IM: no cold intolerance, no heat intolerance, no polydipsia, no polyuria - Allergic/Immunologic Allergic/Immunologic: wheezing, no GI upset with certain foods - Constitutional Vitals: Temp Pulse Resp BP Pulse Ox 97.7 F 94 22 114/73 95 03/05/19 03:33 03/05/19 03:33 03/05/19 04:01 03/05/19 03:33 03/05/19 04:01 General appearance: Present: cooperative, mild distress, A&O X 3, pleasant, answers questions appropriately Exam: mild respiratory distress and increased work of breathing - Head Head exam: Present: atraumatic, normal inspection - Eye Eye exam: Present: EOMI, PERRL. Absent: scleral icterus Pupils: Present: normal accommodation - ENT ENT exam: Present: mucous membranes dry, normal exam, normal oropharynx - Neck Neck exam general surgery: Present: full ROM, supple, trachea midline. Absent: lymphadenopathy, tenderness, nuchal rigidity, thyromegaly - Respiratory Respiratory exam: Present: accessory muscle use, decreased breath sounds, prolonged expiratory phase, respiratory distress, wheezes, tachypnea. Absent: chest wall tenderness, rales, rhonchi - Cardiovascular Cardiovascular exam: Present: distant heart sounds, RRR, +S1, +S2. Absent: darek stolic murmur, systolic murmur - GI/Abdominal GI/Abdominal exam: Present: normal bowel sounds, soft. Absent: guarding, hepatomegaly, mass, rebound, splenomegaly, tenderness - Extremities Exam Extremities exam: Present: full ROM, normal capillary refill, warm, radial pulses palpable and symmetrical. Absent: calf tenderness, joint swelling, pedal edema, tenderness - Back Exam Back exam: Present: normal inspection. Absent: CVA tenderness (L), CVA tenderness (R) - Neurological Exam Neurological exam: Present: alert, CN II-XII intact, oriented X3, no focal deficits - Psychiatric Psychiatric exam: Present: normal affect, normal mood - Skin Skin exam: Present: dry, intact, warm Internal Med - H&P Results - Labs CBC & Chem 7: 03/05/19 03:28 03/05/19 03:28 Labs: Short CBC 03/04/19 03/05/19 Range/Units 18:32 03:28 WBC 11.5 H 8.3 (4.3-11.1) K/mcL Hgb 14.0 13.8 (11.5-15.4) g/dL Hct 43.7 43.3 (35.3-44.9) % Plt Count 240 238 (140-400) K/mcL Neutrophils # 8.5 7.8 (1.6-8.9) K/mcL BMP 03/04/19 03/05/19 18:32 03:28 Sodium 142 139 Potassium 3.4 L 4.3 D Chloride 102 101 Carbon Dioxide 30 H 31 H BUN 10 11 Creatinine 0.59 L 0.57 L Glucose 229 H 263 H Calcium 9.2 9.4 Liver Function 03/05/19 Range/Units 03:28 Total Bilirubin 0.3 (0.3-1.0) mg/dL AST 11 L (13-39) Units/L ALT 19 (7-52) Units/L Alkaline Phosphatase 63 (34-104) Units/L Albumin 4.2 (3.5-5.7) g/dL - EKG Data -: EKG Interpreted by Myself - EKG Data Prior EKG available for review: no EKG comments: 03/05/19 04:19 sinus tachycardia - Impressions ITS Impressions Chest X-Ray 03/04/19 17:50 IMPRESSION: No acute process. D/ / Dion Mills MD / Dion Mills MD Interpreting Provider: Dion Mills MD - Diagnostic Studies Chest x-ray Status: image reviewed by me (negative) - Assessment and Plan (1) Acute exacerbation of chronic obstructive pulmonary disease (COPD) Current Visit: Yes Status: Acute Assessment and plan: 1. Will continue scheduled and PRN aerosols. 2. Will order scheduled systemic steroids and IV antibiotics. 3. Will order sputum culture. 4. Oxygen as needed and BiPap QHS and PRN daytime. 5. Smoking cessation well advised. (2) Type 2 diabetes mellitus Current Visit: Yes Status: Chronic Assessment and plan: 1. Hold Metformin. 2. Will order SSI and monitor glucose closely. 3. Wean steroids as clinical course allows. Qualifiers: Diabetes mellitus nursing home insulin use: without nursing home use Diabetes mellitus complication status: without complication Qualified Code(s): E11.9 - Type 2 diabetes mellitus without complications (3) Depression Current Visit: Yes Status: Chronic Assessment and plan: 1. Continue home meds as appropriate. Qualifiers: Depression Type: major depressive disorder Major depression recurrence: recurrent Major depression episode severity: unspecified Qualified Code(s): F33.9 - Major depressive disorder, recurrent, unspecified (4) DVT prophylaxis Current Visit: Yes Status: Acute Assessment and plan: 1. Heparin SQ.
[2019-03-05] MEDS: *HR* Heparin 5,000 UNIT/ML VIAL SQ SCH ×2 (05:15→16:44)
[2019-03-05] MEDS: Budesonide/Formoterol 160/4.5 1 PUFF INH IH SCH ×2 (07:37→20:17)
[2019-03-05] MEDS ORDERED: methylPREDNISolone 125 MG/2 ML VIAL IVP SCH (08:00)
[2019-03-05] MEDS: Multivit/Ca/Min/Fe/FA 1 TAB TABLET PO SCH (08:11)
[2019-03-05] MEDS: ALPRAZolam 1 MG TABLET PO SCH ×3 (08:11→19:53)
[2019-03-05] MEDS: Insulin LISPRO 300 UNITS/3 ML VIAL SQ SCH ×5 (08:12→22:27)
--- NOTE | 2019-03-05 09:53 | Electrocardiograph Report ---
[place] [id number] Test Date: 2019-03-04 Pat Name: Mildred Sun Department: 104 Room: 3B Gender: F Commercial Electrician: : 1965 Requested By: Chase Connolly Order Number: [id number] Reading MD: Luis E Hidalgo Measurements Intervals [place] Rate: 111 P: 85 MS: 132 QRS: 83 QRSD: 74 T: 65 QT: 307 QTc: 372 Interpretive Statements SINUS TACHYCARDIA POSSIBLE RIGHT VENTRICULAR CONDUCTION DELAY ABNORMAL RHYTHM ECG Electronically Signed On 03-05-2019 9:52:03 EDT by Luis E Hidalgo
--- NOTE | 2019-03-05 10:16 | Internal Med Progress Note ---
<Jason Cohen - Last Filed: 03/05/19 10:14> Hospitalist Progress Note - Encounter Date of Encounter: 03/05/19 Time of Encounter: 10:14 - Subjective Interval History: No acute events overnight. Patient reports her shortness of breath is not at baseline. She is having difficulty coughing up any sputum and feels very con gested. At home she states she is only on oxygen at night and not in the mornings. She does use BiPAP at home. She reports that her sister had upper respiratory infection the last week and she may have caught that. - Exam Vitals: Temp Pulse Resp BP Pulse Ox 98.1 F 92 24 124/85 97 03/05/19 07:21 03/05/19 07:21 03/05/19 07:39 03/05/19 07:21 03/05/19 07:39 Exam: General: pleasant, without distress Cardiovascualr: Regular rate and rhythm with no murmur, absent gallops or rubs, absent pedal edema, radial pulses 2 out of 4 Lungs: Absent wheezing, severely diminished bilaterally, mild respiratory distress Abdomen: Soft nontender, nondistended positive bowel sounds, absent hepatomegaly Skin: warm and dry, absent rash, absent open wounds and nodules MSK: absent clubbing, cyanosis, joints without swelling Neuro: Alert and oriented 3 Psych: good insight and judgment - Assessment and Plan (1) Acute exacerbation of chronic obstructive airways disease Current Visit: Yes Status: Acute Assessment and Plan: Patient is having a COPD exacerbation We will continue systemic steroids and Levaquin We will order respiratory infection panel Continue nebulizer treatments. Before discharge patient will need to be re-qualified for oxygen. She was educated on smoking cessation. She may benefit from pulmonary rehabilitation (2) Depression Current Visit: Yes Status: Chronic Assessment and Plan: Continue mirtazapine, Seroquel (3) DVT prophylaxis Current Visit: Yes Status: Acute Assessment and Plan: Heparin subcutaneous (4) Type 2 diabetes mellitus Current Visit: Yes Status: Chronic Assessment and Plan: Ktz-svlphem-gfulhxueb diabetes mellitus Continue sliding scale insulin and diabetic diet - Time Spent with Patient Total time spent is greater than 50% in coordination of care (as documented) at patient's floor/unit and/or counseling patient: Internal Medicine: Result - Labs CBC & Chem 7: 03/05/19 03:28 03/05/19 03:28 Labs: Short CBC 03/04/19 03/05/19 Range/Units 18:32 03:28 WBC 11.5 H 8.3 (4.3-11.1) K/mcL Hgb 14.0 13.8 (11.5-15.4) g/dL Hct 43.7 43.3 (35.3-44.9) % Plt Count 240 238 (140-400) K/mcL Neutrophils # 8.5 7.8 (1.6-8.9) K/mcL BMP 03/04/19 03/05/19 18:32 03:28 Sodium 142 139 Potassium 3.4 L 4.3 D Chloride 102 101 Carbon Dioxide 30 H 31 H BUN 10 11 Creatinine 0.59 L 0.57 L Glucose 229 H 263 H Calcium 9.2 9.4 Liver Function 03/05/19 Range/Units 03:28 Total Bilirubin 0.3 (0.3-1.0) mg/dL AST 11 L (13-39) Units/L ALT 19 (7-52) Units/L Alkaline Phosphatase 63 (34-104) Units/L Albumin 4.2 (3.5-5.7) g/dL - Impressions Impressions Chest X-Ray 03/04/19 17:50 IMPRESSION: No acute process. D/ / Dion Mills MD / Dion Mills MD Interpreting Provider: Dion Mills MD Consult Discharge Plan - Plan Referrals: Benjamin Thayer MD [Primary Care Provider] - 03/11/19 1:15 pm Jamie Dunaway CNP [Partnered Physician] - 03/12/19 9:00 am <Maryjane Tucker - Last Filed: 03/05/19 12:37> Hospitalist Progress Note - Encounter Date of Encounter: 03/05/19 - Exam Vitals: Temp Pulse Resp BP Pulse Ox 98.2 F 101 16 121/84 97 03/05/19 11:28 03/05/19 11:28 03/05/19 11:47 03/05/19 11:28 03/05/19 11:47 - Assessment and Plan (1) Depression Current Visit: Yes Status: Chronic (2) Acute exacerbation of chronic obstructive pulmonary disease (COPD) Current Visit: Yes Status: Acute (3) Type 2 diabetes mellitus Current Visit: Yes Status: Chronic (4) DVT prophylaxis Current Visit: Yes Status: Acute - Time Spent with Patient Total time spent is greater than 50% in coordination of care (as documented) at patient's floor/unit and/or counseling patient: Internal Medicine: Result - Labs CBC & Chem 7: 03/05/19 03:28 03/05/19 03:28 Labs: Short CBC 03/04/19 03/05/19 Range/Units 18:32 03:28 WBC 11.5 H 8.3 (4.3-11.1) K/mcL Hgb 14.0 13.8 (11.5-15.4) g/dL Hct 43.7 43.3 (35.3-44.9) % Plt Count 240 238 (140-400) K/mcL Neutrophils # 8.5 7.8 (1.6-8.9) K/mcL BMP 03/04/19 03/05/19 18:32 03:28 Sodium 142 139 Potassium 3.4 L 4.3 D Chloride 102 101 Carbon Dioxide 30 H 31 H BUN 10 11 Creatinine 0.59 L 0.57 L Glucose 229 H 263 H Calcium 9.2 9.4 Liver Function 03/05/19 Range/Units 03:28 Total Bilirubin 0.3 (0.3-1.0) mg/dL AST 11 L (13-39) Units/L ALT 19 (7-52) Units/L Alkaline Phosphatase 63 (34-104) Units/L Albumin 4.2 (3.5-5.7) g/dL - Impressions Impressions Chest X-Ray 03/04/19 17:50 IMPRESSION: No acute process. D/ / Dion Mills MD / Dion Mills MD Interpreting Provider: Dion Mills MD - Attending Attestation I examined this patient and my medical decision-making was reviewed with the Resident Physician Dr Cohen. I agree with the documented findings, disposition and treatment plan as described except to the extent set forth below. Ms Sun is being observed for copde awake, sob is somewhat improved, was able to walk to bathroom. + wheezing, + dry cough, no fevers or chills. no palpitations, cp, pressure. gen- alert, awake,appears stated age cv- reg rate and rhythm, normal s1,s2, no murmurs appreciated lungs- fine exp wheezing throughout, diminished bs throughout, normal resp effort on o2 nc neuro- AAOx3 COPDE cxr neg -cont levaquin, begin to wean IV steroids, cont nebs Acute on Chronic Hypoxic resp failure only uses O2NC 2L with bipap hs at home, not during day 2/2 COPDE as above -treatment as above, wean o2 nc as able, will re qualify for home o2 prior to dc DM- hold metformin while inpt, SSI further diagnoses and plan as noted by resident <Jason Cohen - Last Filed: 03/05/19 10:14> (2) Depression Qualifiers: Depression Type: major depressive disorder Major depression recurrence: recurrent Major depression episode severity: unspecified Qualified Code(s): F33.9 - Major depressive disorder, recurrent, unspecified (4) Type 2 diabetes mellitus Qualifiers: Diabetes mellitus long-term insulin use: without ferry terminal supervisor use Diabetes mellitus complication status: without complication Qualified Code(s): E11.9 - Type 2 diabetes mellitus without complications <Maryjane Tucker - Last Filed: 03/05/19 12:37> (1) Depression Qualifiers: Depression Type: major depressive disorder Major depression recurrence: recurrent Major depression episode severity: unspecified Qualified Code(s): F33.9 - Major depressive disorder, recurrent, unspecified (3) Type 2 diabetes mellitus Qualifiers: Diabetes mellitus long-term insulin use: without long-term use Diabetes mellitus complication status: without complication Qualified Code(s): E11.9 - Type 2 diabetes mellitus without complications
[2019-03-05 13:19] LABS: Adenovirus Not Detected (Not Detect); Bordetella Pertussis Not Detected (Not Detect); Chlamydophila pneumoniae Not Detected (Not Detect); Coronavirus 229E Not Detected (Not Detect); Coronavirus HKU1 Not Detected (Not Detect); Coronavirus NL63 Not Detected (Not Detect); Coronavirus OC43 Not Detected (Not Detect); Human Metapneumovirus Not Detected (Not Detect); Human Rhinovirus/Enterovirus Not Detected (Not Detect); Influenza A Subtype 2009 H1 Not Detected (Not Detect); Influenza A Untypeable Not Detected (Not Detect); Influenza B Not Detected (Not Detect); Mycoplasma pneumoniae Not Detected (Not Detect); Parainfluenza Virus 1 Not Detected (Not Detect); Parainfluenza Virus 2 Not Detected (Not Detect); Parainfluenza Virus 3 Not Detected (Not Detect); Parainfluenza Virus 4 Not Detected (Not Detect); Respiratory Syncytial Virus Not Detected (Not Detect)
--- NOTE | 2019-03-05 14:20 | Electrocardiograph Report ---
[place] [id number] Test Date: 2019-03-05 Pat Name: Mildred Sun Department: 113 Room: 3B Gender: F [employer] Lawyer: : 1965 Requested By: Mohit Das Order Number: [id number] Reading MD: Luis E Hidalgo Measurements Intervals [place] Rate: 91 P: 83 [place]: 125 QRS: 56 QRSD: 77 T: 68 QT: 359 QTc: 408 Interpretive Statements SINUS RHYTHM LOW QRS VOLTAGE IN PRECORDIAL LEADS Electronically Signed On 03-05-2019 14:18:25 EDT by Luis E Hidalgo
[2019-03-05] MEDS: MethylPREDNISolone 40 MG/ML VIAL IVP SCH ×2 (16:44→23:52)
[2019-03-05] MEDS ORDERED: Insulin LISPRO 300 UNITS/3 ML VIAL SQ SCH (21:00)
[2019-03-05] MEDS: Nicotine 14 MG PATCH.TD24 TD SCH (23:51)
[2019-03-06] MEDS: Ipratropium/Albuterol Neb 3 ML IH SCH ×7 (00:03→23:04)
[2019-03-06] MEDS: Levofloxacin 500 MG/100 ML 500 MG/100 ML BAG IVPB SCH (01:53)
[2019-03-06] MEDS: *HR* Heparin 5,000 UNIT/ML VIAL SQ SCH ×2 (05:23→17:12)
[2019-03-06] MEDS: Budesonide/Formoterol 160/4.5 1 PUFF INH IH SCH ×2 (07:24→19:52)
[2019-03-06] MEDS ORDERED: Insulin LISPRO 300 UNITS/3 ML VIAL SQ SCH (07:30)
[2019-03-06] MEDS: ALPRAZolam 1 MG TABLET PO SCH ×3 (08:46→20:55)
[2019-03-06] MEDS: Multivit/Ca/Min/Fe/FA 1 TAB TABLET PO SCH (08:46)
[2019-03-06] MEDS: MethylPREDNISolone 40 MG/ML VIAL IVP SCH ×2 (08:47→16:29)
[2019-03-06] MEDS: Insulin LISPRO 300 UNITS/3 ML VIAL SQ SCH ×4 (08:47→20:56)
[2019-03-06] MEDS: Insulin DETEMIR 100 UNIT/ML X5UNITS SQ SCH ×2 (08:48→20:54)
--- NOTE | 2019-03-06 09:15 | Internal Med Progress Note ---
<Jason Cohen - Last Filed: 03/06/19 09:13> Hospitalist Progress Note - Encounter Date of Encounter: 03/06/19 Time of Encounter: 08:00 - Subjective Interval History: No acute events overnight. Patient reports she feels considerably better in terms of her shortness of breath compared to yesterday. She denies chest pain, abdominal pain, nausea, vomiting, diarrhea, lower extremity pain. - Exam Vitals: Temp Pulse Resp BP Pulse Ox 98.4 F 97 18 117/79 94 03/06/19 06:53 03/06/19 06:53 03/06/19 07:26 03/06/19 06:53 03/06/19 07:26 Exam: General: pleasant, without distress Cardiovascualr: Regular rate and rhythm with no murmur, absent gallops or rubs, absent pedal edema, radial pulses 2 out of 4 Lungs: Absent wheezing, diminished bilaterally but improved from yesterday, mild respiratory distress Abdomen: Soft nontender, nondistended positive bowel sounds, absent hepatomegaly Skin: warm and dry, absent rash, absent open wounds and nodules MSK: absent clubbing, cyanosis, joints without swelling Neuro: Alert and oriented 3 Psych: good insight and judgment - Assessment and Plan (1) Acute exacerbation of chronic obstructive airways disease Current Visit: Yes Status: Acute Assessment and Plan: Patient is having a COPD exacerbation We will continue systemic steroids and Levaquin. We will de-escalate steroids from IV to oral. Respiratory infection panel negative Continue nebulizer treatments. Continue Symbicort We will requalify Patient for oxygen tomorrow. (2) Depression Current Visit: Yes Status: Chronic Assessment and Plan: Continue mirtazapine, Seroquel (3) DVT prophylaxis Current Visit: Yes Status: Acute Assessment and Plan: Heparin subcutaneos (4) Type 2 diabetes mellitus Current Visit: Yes Status: Chronic Assessment and Plan: Ljj-jfnullt-ryrwsahoo diabetes mellitus Started on Levemir 5 mg daily. Continue sliding scale insulin and diabetic diet - Time Spent with Patient Total time spent is greater than 50% in coordination of care (as documented) at patient's floor/unit and/or counseling patient: Internal Medicine: Result - Labs CBC & Chem 7: 03/05/19 03:28 03/05/19 03:28 Consult Discharge Plan - Plan Referrals: Benjamin Thayer MD [Primary Care Provider] - 03/11/19 1:15 pm Jamie Dunaway CNP [Partnered Physician] - 03/12/19 9:00 am <Maryjane Tucker - Last Filed: 03/06/19 12:00> Hospitalist Progress Note - Encounter Date of Encounter: 03/06/19 - Exam Vitals: Temp Pulse Resp BP Pulse Ox 98.4 F 108 18 116/70 93 03/06/19 10:45 03/06/19 10:45 03/06/19 11:19 03/06/19 10:45 03/06/19 11:19 - Assessment and Plan (1) Depression Current Visit: Yes Status: Chronic (2) Acute exacerbation of chronic obstructive pulmonary disease (COPD) Current Visit: Yes Status: Acute (3) Type 2 diabetes mellitus Current Visit: Yes Status: Chronic (4) DVT prophylaxis Current Visit: Yes Status: Acute - Time Spent with Patient Total time spent is greater than 50% in coordination of care (as documented) at patient's floor/unit and/or counseling patient: Internal Medicine: Result - Labs CBC & Chem 7: 03/05/19 03:28 03/05/19 03:28 - Attending Attestation I examined this patient and my medical decision-making was reviewed with the Resident Physician Dr Cohen. I agree with the documented findings, disposition and treatment plan as described except to the extent set forth below. Ms Sun is being observed for copde awake, sob cont to improve, o2 sats stable at rest, but drop with exertion, denies wheezing, + dry cough gen- alert, awake,appears stated age cv- reg rate and rhythm, normal s1,s2, no murmurs appreciated lungs- diminished bs throughout, no wheezing or rhnochi, normal resp effort on o2 nc neuro- AAOx3 COPDE cxr neg -cont levaquin, further wean steroids, cont nebs Acute on Chronic Hypoxic resp failure only uses O2NC 2L with bipap hs at home, not during day 2/2 COPDE as above -treatment as above, wean o2 nc as able, will re qualify for home o2 likely in am DM- hold metformin while inpt, SSI + low dose levemir while here and on steroids further diagnoses and plan as noted by resident <Jason Cohen - Last Filed: 03/06/19 09:13> (2) Depression Qualifiers: Depression Type: major depressive disorder Major depression recurrence: recurrent Major depression episode severity: unspecified Qualified Code(s): F33.9 - Major depressive disorder, recurrent, unspecified (4) Type 2 diabetes mellitus Qualifiers: Diabetes mellitus group home insulin use: without bed bug exterminator use Diabetes mellitus complication status: without complication Qualified Code(s): E11.9 - Type 2 diabetes mellitus without complications <Maryjane Tucker - Last Filed: 03/06/19 12:00> (1) Depression Qualifiers: Depression Type: major depressive disorder Major depression recurrence: recurrent Major depression episode severity: unspecified Qualified Code(s): F33.9 - Major depressive disorder, recurrent, unspecified (3) Type 2 diabetes mellitus Qualifiers: Diabetes mellitus group home insulin use: without bed bug exterminator use Diabetes mellitus complication status: without complication Qualified Code(s): E11.9 - Type 2 diabetes mellitus without complications
[2019-03-06] MEDS: Mirtazapine 15 MG TABLET PO SCH (20:54)
[2019-03-06] MEDS: Gabapentin 100 MG CAPSULE PO SCH (20:55)
[2019-03-06] MEDS: Nicotine 14 MG PATCH.TD24 TD SCH (23:35)
[2019-03-07] MEDS: Levofloxacin 500 MG/100 ML 500 MG/100 ML BAG IVPB SCH (01:59)
[2019-03-07] MEDS: Ipratropium/Albuterol Neb 3 ML IH SCH ×3 (04:26→11:42)
[2019-03-07] MEDS: *HR* Heparin 5,000 UNIT/ML VIAL SQ SCH (05:41)
[2019-03-07 06:56] VITALS: BP 113/72
[2019-03-07] MEDS: Budesonide/Formoterol 160/4.5 1 PUFF INH IH SCH (07:32)
[2019-03-07] MEDS: Insulin LISPRO 300 UNITS/3 ML VIAL SQ SCH (08:51)
[2019-03-07] MEDS: Multivit/Ca/Min/Fe/FA 1 TAB TABLET PO SCH (08:52)
[2019-03-07] MEDS: ALPRAZolam 1 MG TABLET PO SCH (08:53)
[2019-03-07] MEDS ORDERED: predniSONE 20 MG TABLET PO SCH (09:00)
--- NOTE | 2019-03-07 09:39 | Discharge Summary ---
<Maryjane Tucker - Last Filed: 03/07/19 09:49> Orders not resulted at time of discharge: Pending orders 03/05/19 01:22 Culture,Sputum with Gram Stain [] Stat Date of Encounter: 03/07/19 - Discharge Diagnosis (1) Depression Status: Chronic Qualifiers: Depression Type: major depressive disorder Major depression recurrence: recurrent Major depression episode severity: unspecified Qualified Code(s): F33.9 - Major depressive disorder, recurrent, unspecified (2) Acute exacerbation of chronic obstructive pulmonary disease (COPD) Status: Acute (3) Type 2 diabetes mellitus Status: Chronic Qualifiers: Diabetes mellitus assisted insulin use: without intermediate card tender use Diabetes mellitus complication status: without complication Qualified Code(s): E11.9 - Type 2 diabetes mellitus without complications (4) DVT prophylaxis Status: Acute Hospital course: Ms. Sun is a 53 year old female - Time Spent with Patient Total time spent providing and/or coordinating discharge services: Time spent: Greater than 30 minutes (40 min) - Discharge Medications Prescriptions: New predniSONE [PredniSONE] 10 mg PO TAPER #10 tablet levoFLOXacin [Levaquin] 500 mg PO DAILY #4 tablet Continued Mirtazapine [Remeron] 30 mg PO HS Metformin HCl [Metformin ER Gastric] 500 mg PO QPM Budesonide/Formoterol 160/4.5 [Symbicort 160/4.5] 2 puff IH BIDR Albuterol Sulfate [Albuterol Inhaler] 2 puff IH Q4HR PRN #1 inhaler PRN Reason: Shortness Of Breath Ipratropium/Albuterol Neb [Duoneb] 3 ml IH Q6HR #120 inhsol ALPRAZolam [Xanax 1 MG Tablet] 1 mg PO QAM AND QHS ALPRAZolam [Xanax 1 MG Tablet] 0.5 mg PO DAILY@1500 Citalopram [CeleXA] 20 mg PO DAILY Gabapentin [Neurontin] 200 mg PO HS Multivit-Min/Iron/Folic/Lutein [Centrum Silver Women Tablet] 1 each PO DAILY Quetiapine Fumarate [Seroquel] 50 mg PO HS Home Medications: Metformin HCl [Metformin ER Gastric] 500 mg PO QPM 03/27/17 [History] Mirtazapine [Remeron] 30 mg PO HS 03/27/17 [History] Budesonide/Formoterol 160/4.5 [Symbicort 160/4.5] 2 puff IH BIDR 08/28/17 [History] Albuterol Sulfate [Albuterol Inhaler] 2 puff IH Q4HR PRN #1 inhaler 09/12/17 [Rx] Ipratropium/Albuterol Neb [Duoneb] 3 ml IH Q6HR #120 inhsol 09/17/17 [Rx] ALPRAZolam [Xanax 1 MG Tablet] 0.5 mg PO DAILY@1500 03/04/19 [History] ALPRAZolam [Xanax 1 MG Tablet] 1 mg PO QAM AND QHS 03/04/19 [History] Citalopram [CeleXA] 20 mg PO DAILY 03/04/19 [History] Gabapentin [Neurontin] 200 mg PO HS 03/04/19 [History] Multivit-Min/Iron/Folic/Lutein [Centrum Silver Women Tablet] 1 each PO DAILY 03/04/19 [History] Quetiapine Fumarate [Seroquel] 50 mg PO HS 03/04/19 [History] levoFLOXacin [Levaquin] 500 mg PO DAILY #4 tablet 03/07/19 [Rx] predniSONE [PredniSONE] 10 mg PO TAPER #10 tablet 03/07/19 [Rx] Allergies/Adverse Reactions: Allergy/AdvReac Type Severity Reaction Status Date / Time prednisone Allergy Redness of Verified 09/13/17 02:09 Skin sulfamethoxazole AdvReac Rash Verified 09/13/17 02:09 [From Bactrim] trimethoprim [From Bactrim] AdvReac Rash Verified 09/13/17 02:09 Date of admission: 03/04/19 20:49 Primary care physician: Benjamin Thayer MD Consults: 03/05/19 09:27 Consult to Nurse Navigator [CONS] Routine Comment: COPD - Constitutional Vitals: Temp Pulse Resp BP Pulse Ox 98.4 F 93 18 113/72 93 03/07/19 06:55 03/07/19 06:55 03/07/19 07:32 03/07/19 06:55 03/07/19 07:32 - Patient Status Disposition: Home, Self-Care Condition: Fair - Discharge Instructions Follow Up With: Benjamin Thayer MD [Primary Care Provider] - 03/11/19 1:15 pm Jamie Dunaway CNP [Partnered Physician] - 03/12/19 9:00 am - Attending Attestation I examined this patient and my medical decision-making was reviewed with the Resident Physician Dr Cohen. I agree with the documented findings, disposition and treatment plan as described except to the extent set forth below. Ms Sun is being observed for copde. Her symptoms greatly improved with steroids and abx and she is stable for dc to home awake, comfortable on room air. HR 110s on bedside pulse ox. She just received duoneb and notes it elevates her hr then it returns to her baseline about a half hour later which is low 100s. She does nebs routinely at home and she denies this HR elevation is any different than at home. She denies any cp, palpations or sob. has been ambulating room without diffiuclty. RN at bedside and will 6 min walk. Pt feeling greatly improved, no cough, denies wheezing. She is very eager for dc to home and denies she has any needs at home as has her o2 and concentrator, neb machine and solution and will fu with pcp gen- alert, awake,appears stated age cv-tachy rate and reg rhythm, normal s1,s2, no murmurs appreciated lungs- improved aeartion posteriorly, no wheezing or rhnochi, normal resp effort on room air neuro- AAOx3 COPDE cxr neg -cont levaquin course PO outpt for 7 d total tx, steroid taper, cont home nebs/inhalers -fu with pcp Acute on Chronic Hypoxic resp failure, resolved only uses O2NC 2L with bipap hs at home, not during day 2/2 COPDE as above -treatment as above, will re qualify for home o2 prior to dc DM- hold metformin while inpt, resume upon discharge further diagnoses and plan as noted by resident time spent on dc 40 min <Jason Cohen - Last Filed: 03/07/19 10:13> Orders not resulted at time of discharge: Pending orders 03/05/19 01:22 Culture,Sputum with Gram Stain [RM] Stat Date of Encounter: 03/07/19 Time of Encounter: 09:36 - Discharge Diagnosis (1) Acute exacerbation of chronic obstructive airways disease Priority: Primary Status: Resolved (2) Depression Priority: Secondary Status: Chronic Qualifiers: Depression Type: major depressive disorder Major depression recurrence: recurrent Major depression episode severity: unspecified Qualified Code(s): F33.9 - Major depressive disorder, recurrent, unspecified (3) DVT prophylaxis Priority: Secondary Status: Acute (4) Type 2 diabetes mellitus Priority: Secondary Status: Chronic Qualifiers: Diabetes mellitus intermediate card tender insulin use: without assisted use Diabetes mellitus complication status: without complication Qualified Code(s): E11.9 - Type 2 diabetes mellitus without complications Hospital course: Ms. Sun is a 53 year old female with history of COPD was admitted for shortness of breath and found to have COPD exacerbation. She was put on IV antibiotics Levaquin, steroids, nebulizer treatments. Chest x-ray was negative. Respiratory infection panel was negative. Patient's symptoms improved over 3 days. She was weaned off oxygen. At home patient has BiPAP at night, nebulizer and continues to liters oxygen. She was advised to quit smoking, use oxygen at all times and we will schedule pulmonary rehabilitation. She will go home with a steroid taper and 2 additional days of Levaquin. - Time Spent with Patient Total time spent providing and/or coordinating discharge services: Date of admission: 03/04/19 20:49 Primary care physician: Benjamin Thayer MD Consults: 03/05/19 09:27 Consult to Nurse Navigator [CONS] Routine Comment: COPD Discharging clinician: Jason Cohen Anticipated date of discharge: 03/07/19 - Constitutional Vitals: Temp Pulse Resp BP Pulse Ox 98.4 F 93 18 113/72 93 03/07/19 06:55 03/07/19 06:55 03/07/19 07:32 03/07/19 06:55 03/07/19 07:32 General appearance: Present: cooperative, mild distress, A&O X 3, pleasant, answers questions appropriately Exam: General: pleasant, without distress Cardiovascualr: Regular rate and rhythm with no murmur, absent gallops or rubs, absent pedal edema, radial pulses 2 out of 4 Lungs: Absent wheezing, clear bilaterally, mild respiratory distress Abdomen: Soft nontender, nondistended positive bowel sounds, absent hepatomegaly Skin: warm and dry, absent rash, absent open wounds and nodules MSK: absent clubbing, cyanosis, joints without swelling Neuro: Alert and oriented 3 Psych: good insight and judgment - Patient Status Functional capacity at discharge: independent ambulation Overall status at discharge: patient is progressing back to baseline - Diet and Activity Activity: increase activity as tolerated Diet: advance to your usual diet
== END 2019-03-07 13:57 | disposition home or self-care (01) ==
LOC: 3BNU 17:35 → EMEROOARM 17:35 → SUATTDRO 20:49 → 3BNU 22:20
PROVIDERS: ADMIT Pediatrics; ATTEND Internal Medicine

== ENCOUNTER 2021-01-23 03:42 | Inpatient (IN) ==
[2021-01-23] MEDS ORDERED: methylPREDNISolone 125 MG/2 ML VIAL IVP ONE (03:57)
[2021-01-23] MEDS ORDERED: Ipratropium/Albuterol Neb 3 ML IH ONE (03:57)
[2021-01-23] MEDS ORDERED: Isovue-370 500 ML BOTTLE IVP ONE (03:57)
[2021-01-23 04:15] LABS: Basophils # 0.1 K/mcL (0.0-0.2); Basophils % 0.6 %; Eosinophils # 0.1 K/mcL (0.0-0.6); Eosinophils % 0.7 %; Hematocrit 40.6 % (35.3-44.9); Hemoglobin 12.4 g/dL (11.5-15.4); Immature Granulocytes % 0.1 % (0-4); Lymphocytes # 0.8 K/mcL (0.6-4.6); Lymphocytes % 9.8 %; Mean Corpuscular HGB Conc 30.5 g/dL (31.6-35.5); Mean Corpuscular Volume 98.3 fL (83.0-100.0); Mean Platelet Volume 10.6 fL (9.4-12.4); Monocytes # 0.7 K/mcL (0.0-1.3); Monocytes % 8.9 %; Neutrophils # 6.5 K/mcL (1.6-8.9); Platelet Count 181 K/mcL (140-400); Red Blood Count 4.13 M/mcL (3.82-4.97); Red Cell Distribution Width 12.6 % (11.5-14.5); Segmented Neutrophils % 79.9 %; White Blood Count 8.2 K/mcL (4.3-11.1)
[2021-01-23 04:36] LABS: BUN/Creatinine Ratio 26 (6-26); Blood Urea Nitrogen 12 mg/dL (6-20); Calcium 8.8 mg/dL (8.6-10.3); Carbon Dioxide 39 mEq/L (23-29); Chloride 100 mEq/L (98-107); Glucose 168 mg/dL (70-105); Osmolality,Calculated 298 (280-300); Potassium 3.9 mEq/L (3.5-5.1); Sodium 142 mEq/L (136-145); eGFR For African Americans > 60 (> 60); eGFR For Non-African Americans > 60 (> 60)
[2021-01-23 04:37] LABS: Troponin I < 0.03 ng/mL (< 0.04)
[2021-01-23 06:48] LABS: ABG Base Excess 11 mEq/L (-2 to 3); ABG HCO3 45 mEq/L (21-27); ABG Oxygen Saturation 99 % (95-98); ABG PCO2 123 mmHg (35-45); ABG PH 7.17 pH Units (7.32-7.45); ABG PO2 190 mmHg (85-104); ABG TCO2 49 mEq/L (20-26)
[2021-01-23] MEDS ORDERED: Naloxone 0.4 MG/ML INJ IVP PRN (07:14)
[2021-01-23] MEDS ORDERED: Ipratropium/Albuterol Neb 3 ML IH PRN (07:16)
[2021-01-23] MEDS ORDERED: 0.9 % Sodium Chloride 1,000 ML IVC SCH (07:30)
[2021-01-23] MEDS ORDERED: MethylPREDNISolone 40 MG/ML VIAL IVP SCH (08:00)
[2021-01-23] MEDS: *HR* Heparin 5,000 UNIT/ML VIAL SQ SCH ×2 (08:33→15:42)
[2021-01-23 09:59] LABS: ABG Base Excess 9 mEq/L (-2 to 3); ABG HCO3 41 mEq/L (21-27); ABG Oxygen Saturation 93 % (95-98); ABG PCO2 97 mmHg (35-45); ABG PH 7.23 pH Units (7.32-7.45); ABG PO2 83 mmHg (85-104); ABG TCO2 44 mEq/L (20-26); Blood Gas Modality BiLevel; Blood Gas VT 500 cc
[2021-01-23] MEDS: Nicotine 21 MG PATCH.TD24 TD SCH (22:09)
[2021-01-23] MEDS ORDERED: ALPRAZolam 0.5 MG TABLET PO SCH (23:45)
[2021-01-24] MEDS: Mirtazapine 15 MG TABLET PO SCH ×2 (00:07→20:05)
[2021-01-24] MEDS: Gabapentin 100 MG CAPSULE PO SCH ×2 (00:07→20:05)
[2021-01-24] MEDS: *HR* Heparin 5,000 UNIT/ML VIAL SQ SCH ×4 (00:08→23:24)
[2021-01-24 01:08] LABS: Basophils % 0.2 %; Hematocrit 36.6 % (35.3-44.9); Hemoglobin 11.2 g/dL (11.5-15.4); Immature Granulocytes % 0.4 % (0-4); Lymphocytes # 0.9 K/mcL (0.6-4.6); Lymphocytes % 15.5 %; Mean Corpuscular HGB Conc 30.6 g/dL (31.6-35.5); Mean Corpuscular Hemoglobin 29.5 pg (28.0-33.3); Mean Corpuscular Volume 96.3 fL (83.0-100.0); Mean Platelet Volume 10.9 fL (9.4-12.4); Monocytes # 0.7 K/mcL (0.0-1.3); Monocytes % 12.1 %; Neutrophils # 4.1 K/mcL (1.6-8.9); Platelet Count 180 K/mcL (140-400); Red Cell Distribution Width 12.3 % (11.5-14.5); Segmented Neutrophils % 71.8 %; White Blood Count 5.7 K/mcL (4.3-11.1)
[2021-01-24 01:31] LABS: BUN/Creatinine Ratio 25 (6-26); Blood Urea Nitrogen 12 mg/dL (6-20); Calcium 9.3 mg/dL (8.6-10.3); Carbon Dioxide 36 mEq/L (23-29); Chloride 99 mEq/L (98-107); Glucose 129 mg/dL (70-105); Osmolality,Calculated 291 (280-300); Potassium 4.4 mEq/L (3.5-5.1); Sodium 140 mEq/L (136-145); eGFR For African Americans > 60 (> 60); eGFR For Non-African Americans > 60 (> 60)
[2021-01-24] MEDS ORDERED: 0.9 % Sodium Chloride 500 ML IVC ONE ×2 (02:12→03:16)
[2021-01-24] MEDS ORDERED: 0.9 % Sodium Chloride 1,000 ML ONE (02:17)
[2021-01-24] MEDS ORDERED: 0.9 % Sodium Chloride 1,000 ML IVC SCH (04:45)
[2021-01-24] MEDS: MethylPREDNISolone 40 MG/ML VIAL IVP SCH ×4 (07:25→23:27)
[2021-01-24] MEDS: Nicotine 21 MG PATCH.TD24 TD SCH (08:16)
[2021-01-24] MEDS: Multivit/Ca/Min/Fe/FA 1 TAB TABLET PO SCH (08:17)
[2021-01-24] MEDS: (Brexpiprazole [Rexulti] 1 MG Tablet) PO SCH (08:26)
[2021-01-24] MEDS: ALPRAZolam 1 MG TABLET PO PRN ×2 (11:13→19:49)
[2021-01-24] MEDS ORDERED: D5% in Water 1,000 ML IVC PRN (11:33)
[2021-01-24] MEDS ORDERED: *HR* Dextrose 50 % in Water (Vial) 50 ML VIAL IVP PRN (11:33)
[2021-01-24] MEDS ORDERED: Dextrose Gel 15 GM/37.5 ML TUBE PO PRN ×2 (11:33)
[2021-01-24] MEDS: Azithromycin 250 MG TABLET PO SCH (13:22)
[2021-01-24] MEDS ORDERED: ALPRAZolam 1 MG TABLET PO SCH (15:00)
[2021-01-24] MEDS: Insulin LISPRO 300 UNITS/3 ML VIAL SUBQ SCH (16:43)
[2021-01-25 06:55] VITALS: BP 146/99
[2021-01-25] MEDS: Insulin LISPRO 300 UNITS/3 ML VIAL SUBQ SCH ×2 (08:28→11:54)
[2021-01-25] MEDS: Nicotine 21 MG PATCH.TD24 TD SCH (08:32)
[2021-01-25] MEDS: ALPRAZolam 1 MG TABLET PO PRN (08:32)
[2021-01-25] MEDS: MethylPREDNISolone 40 MG/ML VIAL IVP SCH (08:32)
[2021-01-25] MEDS: Multivit/Ca/Min/Fe/FA 1 TAB TABLET PO SCH (08:32)
[2021-01-25] MEDS: Azithromycin 250 MG TABLET PO SCH (08:32)
[2021-01-25] MEDS: (Brexpiprazole [Rexulti] 1 MG Tablet) PO SCH (08:33)
[2021-01-25] MEDS: *HR* Heparin 5,000 UNIT/ML VIAL SQ SCH ×2 (08:33→08:46)
== END 2021-01-25 16:18 | disposition home or self-care (01) | DRG 190 ==
LOC: 2ANU 03:42 → EMEROOARM 03:42 → 2NNU 06:52 → SUATTDRO 07:25 → 2NNU 08:25
PROVIDERS: ADMIT Internal Medicine; ATTEND Internal Medicine